=== PATIENT | male | born 1955 | race Caucasian/White ===

== ENCOUNTER 2018-04-17 04:52 | Emergency (ER) | payer OTHER ==
[2018-04-17] MEDS ORDERED: FENTANYL CITR 100 MCG/2 ML ONE (05:45)
[2018-04-17] MEDS ORDERED: PANTOPRAZOLE 40 MG INJ ONE (05:45)
[2018-04-17] MEDS ORDERED: ONDANSETRON 4 MG/2 ML VIAL ONE ×2 (05:45→07:00)
[2018-04-17 06:14] LABS: Absolute Lymphocytes (CBC) 1.2 K/uL (0.7-4.9); Absolute Monocytes 0.9 K/uL (0.1-1.3); Absolute Neutrophil 9.7 K/uL (1.8-8.0); Basophils % 0.3 % (0-1.3); Eosinophils % 1.5 % (0-4.4); Hematocrit 46.2 % (39.6-49.0); Lymphocytes % 9.9 % (15.3-44.8); MPV 7.8 fL (7.6-11.3); Monocytes % 7.1 % (3.3-12.3)
[2018-04-17 06:15] LABS: Protime INR 1.43
--- NOTE | 2018-04-17 06:34 | EDPHYS ---
Physician Documentation [facility] Name: Alicia Jalloh Age: 62 yrs Sex: Male : 1955 Arrival Date: 04/17/2018 Time: 04:56 Bed 7 Private MD: ED Physician Jay Headley HPI: 04/17 05:26 This 62 yrs old Male presents to ER via EMS with complaints of upper cyndy abdominal pain. 05:26 The patient presents with abdominal pain. Onset: The symptoms/episode began/occurred 1 cyndy day(s) ago. The symptoms do not radiate. Associated signs and symptoms: none. The symptoms are described as constant, crampy, steady. Modifying factors: The symptoms are alleviated by nothing, the symptoms are aggravated by nothing. Severity of pain: At its worst the pain was moderate in the emergency department the pain is unchanged. The patient has experienced similar episodes in the past, a few times. Historical: - Allergies: 05:14 No Known Allergies; aa1 - Home Meds: 05:14 Xarelto oral oral [Active]; levothyroxine oral [Active]; Coreg Oral [Active]; glipizide aa1 Oral [Active]; Plavix Oral [Active]; pravastatin oral oral [Active]; losartan oral oral [Active]; - PMHx: 05:14 Myocardial infarction; Diabetes - NIDDM; High Cholesterol; Hypertension; Hypothyroidism;aa1 - PSHx: 05:14 Heart stents; aa1 - Immunization history:: Adult Immunizations up to date. - Social history:: Smoking status: Patient/guardian denies using tobacco, but has a distant history of tobacco abuse. - Ebola Screening: : Patient negative for fever greater than or equal to 101.5 degrees Fahrenheit, and additional compatible Ebola Virus Disease symptoms. - Family history:: not pertinent. ROS: 05:26 Constitutional: Negative for fever, chills, and weight loss, Eyes: Negative for injury, cyndy pain, redness, and discharge, ENT: Negative for injury, pain, and discharge, Neck: Negative for injury, pain, and swelling, Cardiovascular: Negative for chest pain, palpitations, and edema, Respiratory: Negative for shortness of breath, cough, wheezing, and pleuritic chest pain, Back: Negative for injury and pain, : Negative for injury, bleeding, discharge, and swelling, MS/Extremity: Negative for injury and deformity, Skin: Negative for injury, rash, and discoloration, Neuro: Negative for headache, weakness, numbness, tingling, and seizure, Psych: Negative for depression, anxiety, suicide ideation, homicidal ideation, and hallucinations, Allergy/Immunology: Negative for hives, rash, and allergies, Endocrine: Negative for neck swelling, polydipsia, polyuria, polyphagia, and marked weight changes, Hematologic/Lymphatic: Negative for swollen nodes, abnormal bleeding, and unusual bruising. 05:26 Abdomen/GI: Positive for abdominal pain, of the epigastric area. Exam: 05:26 Constitutional: This is a well developed, well nourished patient who is awake, alert, cyndy and in no acute distress. Head/Face: Normocephalic, atraumatic. Eyes: Pupils equal round and reactive to light, extra-ocular motions intact. Lids and lashes normal. Conjunctiva and sclera are non-icteric and not injected. Cornea within normal limits. Periorbital areas with no swelling, redness, or edema. ENT: Nares patent. No nasal discharge, no septal abnormalities noted. Tympanic membranes are normal and external auditory canals are clear. Oropharynx with no redness, swelling, or masses, exudates, or evidence of obstruction, uvula midline. Mucous membranes moist. Neck: Trachea midline, no thyromegaly or masses palpated, and no cervical lymphadenopathy. Supple, full range of motion without nuchal rigidity, or vertebral point tenderness. No Meningismus. Chest/axilla: Normal chest wall appearance and motion. Nontender with no deformity. No lesions are appreciated. Cardiovascular: Regular rate and rhythm with a normal S1 and S2. No gallops, murmurs, or rubs. Normal PMI, no JVD. No pulse deficits. Respiratory: Lungs have equal breath sounds bilaterally, clear to auscultation and percussion. No rales, rhonchi or wheezes noted. No increased work of breathing, no retractions or nasal flaring. Back: No spinal tenderness. No costovertebral tenderness. Full range of motion. Male : Normal genitalia with no discharge or lesions. Skin: Warm, dry with normal turgor. Normal color with no rashes, no lesions, and no evidence of cellulitis. MS/ Extremity: Pulses equal, no cyanosis. Neurovascular intact. Full, normal range of motion. Neuro: Awake and alert, GCS 15, oriented to person, place, time, and situation. Cranial nerves II-XII grossly intact. Motor strength 5/5 in all extremities. Sensory grossly intact. Cerebellar exam normal. Normal gait. Psych: Awake, alert, with orientation to person, place and time. Behavior, mood, and affect are within normal limits. 05:26 Abdomen/GI: Inspection: distension, Bowel sounds: normal, Liver: no appreciated palpable abnormalities, Hernia: not appreciated. Vital Signs: 05:14 BP 142 / 96; Pulse 92; Resp 20 S; Temp 97.5(O); Pulse Ox 97% on R/A; Weight 145.15 kg aa1 (R); Height 6 ft. 1 in. (185.42 cm) (R); Pain 6/10; 06:04 BP 145 / 85; Pulse 88; Resp 19 S; Pulse Ox 96% on R/A; jd3 08:21 BP 157 / 93; Pulse 86; Resp 17; Pulse Ox 94% ; sv 09:32 BP 133 / 79; Pulse 94; Resp 16; Pulse Ox 95% ; sv 10:50 BP 134 / 80; Pulse 91; Resp 16; Pulse Ox 95% ; sv 05:14 Body Mass Index 42.22 (145.15 kg, 185.42 cm) aa1 MDM: 05:12 Patient medically screened. [facility] 05:26 Data reviewed: vital signs, nurses notes, lab test result(s), EKG, radiologic studies. [facility] 09:30 Physician consultation: DR Cagle, sonar subsystem equipment operator \T\[facility] in [facility], will consult on patient and requests transfer to care of hospitalist. 09:45 ED course: VSS. No beds available at [facility]. 10:04 Physician consultation: Dr Flores, sonar subsystem equipment operator \T\[facility], will consult on patient and requests transfer to care of hospitalist. 10:05 Physician consultation: Will transfer to care of DR Zimmerman, hospitalist \[facility] will accept patient. 04/17 05:01 Order name: Basic Metabolic Panel; Complete Time: 07:36 fc 04/17 07:36 Interpretation: Normal except: GLUC 206; CRE 1.33; GFR 54. cp 04/17 05:01 Order name: CBC with Diff; Complete Time: 06:28 04/17 07:38 Interpretation: Normal except: WBC 12.0; OLIVER% 81.2; LYM% 9.9; NEUT A 9.7. cp 04/17 05:01 Order name: LFT's; Complete Time: 07:36 04/17 07:37 Interpretation: Normal except: AST 225; ALT 182; ALK 151; BILIT 3.4; BILID 2.1; ALB cp 3.2; GLOB 4.1; A/G 0.8. 04/17 05:01 Order name: Magnesium; Complete Time: 07:36 04/17 05:01 Order name: NT PRO-BNP; Complete Time: 07:36 04/17 05:01 Order name: PT-INR; Complete Time: 06:28 04/17 07:38 Interpretation: Abnormal: PT 16.9. cp 04/17 05:01 Order name: Troponin (emerg Dept Use Only); Complete Time: 07:36 04/17 05:01 Order name: XRAY Chest (1 view); Complete Time: 09:29 04/17 05:25 Order name: US Abdomen Limited; Complete Time: 08:38 [facility] 04/17 05:25 Order name: CT Abd/Pelvis - W/Contrast; Complete Time: 08:38 [facility] 04/17 06:08 Order name: Lipase; Complete Time: 07:36 EDMS 04/17 07:37 Interpretation: Abnormal: LIP > [id number]. cp 04/17 05:01 Order name: EKG; Complete Time: 05:02 04/17 05:01 Order name: Cardiac monitoring; Complete Time: 05:21 04/17 05:01 Order name: EKG - Nurse/Tech; Complete Time: 05:02 04/17 05:01 Order name: IV Saline Lock; Complete Time: 05:22 04/17 05:01 Order name: Labs collected and sent; Complete Time: 05:53 04/17 05:01 Order name: O2 Per Protocol; Complete Time: 05:21 04/17 05:01 Order name: O2 Sat Monitoring; Complete Time: 05:21 fc EC:46 Rate is 84 beats/min. Rhythm is irregularly irregular. QRS interval is prolonged at 158 cp msec. QT interval is normal. T waves are Inverted in leads III, aVF. Interpreted by me. Reviewed by me. Administered Medications: 05:52 Drug: ProTONIX 40 mg Route: IVP; Site: left antecubital; aa1 05:52 Drug: fentaNYL (PF) 50 mcg Route: IVP; Site: left antecubital; aa1 05:52 Drug: Zofran 4 mg Route: IVP; Site: left antecubital; aa1 06:52 Drug: Zofran 4 mg Route: IVP; Site: left antecubital; ea 07:05 Follow up: Response: No adverse reaction; Marked relief of symptoms; Nausea is decreasedsv 08:12 Drug: Zosyn 3.375 grams Route: IVPB; Infused Over: 60 mins; Site: left forearm; sv 09:29 Follow up: Response: No adverse reaction; IV Status: Completed infusion; IV Intake: sv 100ml 08:29 Drug: NS 0.9% 1000 ml Route: IV; Rate: 150 ml/hr; Site: left forearm; sv 10:56 Follow up: IV Status: Infusion continued upon transfer Disposition: 13:30 Co-signature as Attending Physician, Jay Headley MD I agree with the assessment and cyndy plan of care. Disposition: 04/17/18 08:41 Transfer ordered to [facility]. Diagnosis are Acute pancreatitis, Cholecystitis, Chronic atrial fibrillation. - Reason for transfer: Higher level of care. - Accepting physician is DR Martin. - Condition is Stable. - Problem is new. - Symptoms have improved. Signatures: Dispatcher [employer] EDLA Christy Feldman RN TOMMIE Regina Cohen RN RN aa1 Jay Headley MD MD cha Chretien, Felicia RN Carina Mueller RN RN ss Page, Corey, PA PA cp Antunez, Elena, RN RN ea Corrections: (The following items were deleted from the chart) 06:06 05:24 LIPASE+C.LAB.BRZ ordered. EDLA EDLA 06:35 06:32 Hospitalization Ordered by Mook Mann MD for Inpatient Admission. Preliminary cyndy diagnosis is Abdominal tenderness; Obesity, unspecified; Type 2 diabetes mellitus. Bed requested for Telemetry/MedSurg (Inpatient). Status is Inpatient Admission. Condition is Fair. Problem is new. Symptoms have improved. UTI on Admission? No. cyndy 08:40 06:35 04/17/2018 06:32 Hospitalization Ordered by Mook Mann MD for Inpatient cp Admission. Preliminary diagnosis is Abdominal tenderness; Obesity, unspecified; Type 2 diabetes mellitus; Other chest pain. Bed requested for Telemetry/MedSurg (Inpatient). Status is Inpatient Admission. Condition is Fair. Problem is new. Symptoms have improved. UTI on Admission? No. cyndy 10:16 08:41 04/17/2018 08:41 Transfer ordered to [facility]. Diagnosis is cp Acute pancreatitis; Cholecystitis. Reason for transfer: Higher level of care. Accepting physician is Doctor. Condition is Stable. Problem is new. Symptoms have improved. cp 10:57 10:16 04/17/2018 08:41 Transfer ordered to [facility]. ss Diagnosis is Acute pancreatitis; Cholecystitis; Chronic atrial fibrillation. Reason for transfer: Higher level of care. Accepting physician is DR Martin. Condition is Stable. Problem is new. Symptoms have improved. cp
--- NOTE | 2018-04-17 06:34 | ER ---
Nurse's Notes [facility] Name: Alicia Jalloh Age: 62 yrs Sex: Male : 1955 Arrival Date: 04/17/2018 Time: 04:56 Bed 7 Private MD: Diagnosis: Acute pancreatitis;Cholecystitis;Chronic atrial fibrillation Presentation: 04/17 05:00 Presenting complaint: EMS states: "he is having chest pain/pressure. he also is aa1 complain of epigastric pain. he vomited once when we picked him up, he has a extensive cardiac history, heart rate was initially high so we started a line and gave him fluids.". Transition of care: patient was not received from another setting of care. Onset of symptoms was April 17, 2018. Risk Assessment: Do you want to hurt yourself or someone else? Patient reports no desire to harm self or others. Initial Sepsis Screen: Does the patient meet any 2 criteria? No. Patient's initial sepsis screen is negative. Does the patient have a suspected source of infection? No. Patient's initial sepsis screen is negative. Care prior to arrival: Medication(s) given: Normal saline infusion, 250 ml IV initiated. 18 GA, in the left antecubital area, Glucose check: 174. 05:00 Method Of Arrival: EMS: [facility] aa1 05:00 Acuity: MARIE 2 aa1 Historical: - Allergies: 05:14 No Known Allergies; aa1 - Home Meds: 05:14 Xarelto oral oral [Active]; levothyroxine oral [Active]; Coreg Oral [Active]; glipizide aa1 Oral [Active]; Plavix Oral [Active]; pravastatin oral oral [Active]; losartan oral oral [Active]; - PMHx: 05:14 Myocardial infarction; Diabetes - NIDDM; High Cholesterol; Hypertension; Hypothyroidism;aa1 - PSHx: 05:14 Heart stents; aa1 - Immunization history:: Adult Immunizations up to date. - Social history:: Smoking status: Patient/guardian denies using tobacco, but has a distant history of tobacco abuse. - Ebola Screening: : Patient negative for fever greater than or equal to 101.5 degrees Fahrenheit, and additional compatible Ebola Virus Disease symptoms. - Family history:: not pertinent. Screenin:20 Abuse screen: Denies threats or abuse. Nutritional screening: No deficits noted. aa1 Tuberculosis screening: No symptoms or risk factors identified. Fall Risk IV access (20 points). Ambulatory Aid- None/Bed Rest/Nurse Assist (0 pts). Gait- Weak (10 pts.). Mental Status- Oriented to own ability (0 pts). Total Haywood Fall Scale indicates No Risk (0-24 pts). Assessment: 05:16 General: Appears uncomfortable, Behavior is calm, cooperative, appropriate for age. aa1 Pain: Complains of pain in chest, left upper quadrant and left lower quadrant Quality of pain is described as sharp, tender. Neuro: Level of Consciousness is awake, alert, obeys commands, Oriented to person, place, time, situation. Cardiovascular: Heart tones S1 S2 present Capillary refill < 3 seconds Patient's skin is warm and dry. Respiratory: Reports shortness of breath Airway is patent Respiratory effort is even, unlabored, Respiratory pattern is regular, symmetrical, Breath sounds are clear bilaterally. GI: Abdomen is round non-distended, Bowel sounds present X 4 quads. Abd is soft Abdomen is tender to palpation in left upper quadrant and left lower quadrant. : No signs and/or symptoms were reported regarding the genitourinary system. EENT: No signs and/or symptoms were reported regarding the EENT system. Derm: Skin is intact, Skin is diaphoretic, Skin is normal, Skin temperature is warm. Musculoskeletal: Circulation, motion, and sensation intact. Range of motion: intact in all extremities. 05:58 Reassessment: Patient appears in no apparent distress at this time. No changes from jd3 previously documented assessment. Patient and/or family updated on plan of care and expected duration. Pain level reassessed. Patient is alert, oriented x 3, equal unlabored respirations, skin warm/dry/pink. CT notified of finishing PO contrast. 06:04 Reassessment: Patient appears in no apparent distress at this time. No changes from jd3 previously documented assessment. Patient and/or family updated on plan of care and expected duration. Pain level reassessed. Patient is alert, oriented x 3, equal unlabored respirations, skin warm/dry/pink. 08:13 Reassessment: Patient appears in no apparent distress at this time. Patient and/or sv family updated on plan of care and expected duration. Pain level reassessed. Patient is alert, oriented x 3, equal unlabored respirations, skin warm/dry/pink. Pt informed that we are waiting on the CT results which will determine if he will be an admission here or be transferred to another facility. 09:20 Reassessment: Patient appears in no apparent distress at this time. Patient and/or sv family updated on plan of care and expected duration. Pain level reassessed. Patient is alert, oriented x 3, equal unlabored respirations, skin warm/dry/pink. Pt had a large BM. Gown changed, bedside commode emptied. Vital Signs: 05:14 BP 142 / 96; Pulse 92; Resp 20 S; Temp 97.5(O); Pulse Ox 97% on R/A; Weight 145.15 kg aa1 (R); Height 6 ft. 1 in. (185.42 cm) (R); Pain 6/10; 06:04 BP 145 / 85; Pulse 88; Resp 19 S; Pulse Ox 96% on R/A; jd3 08:21 BP 157 / 93; Pulse 86; Resp 17; Pulse Ox 94% ; sv 09:32 BP 133 / 79; Pulse 94; Resp 16; Pulse Ox 95% ; sv 10:50 BP 134 / 80; Pulse 91; Resp 16; Pulse Ox 95% ; sv 05:14 Body Mass Index 42.22 (145.15 kg, 185.42 cm) aa1 ED Course: 04:56 Patient arrived in ED. cyndy 05:00 Regina Cohen RN is Primary Nurse. aa1 05:05 Triage completed. aa1 05:12 Jay Headley MD is Attending Physician. cyndy 05:16 Arm band placed on. EKG completed in triage. Results shown to MD. aa1 05:16 Maintain EMS IV. Dressing intact. Good blood return noted. Site clean \\T\\ dry. Gauge \\T\\ aa 1 site: 18 G left AC. 05:20 Patient has correct armband on for positive identification. Placed in gown. Bed in low aa1 position. Call light in reach. Side rails up X2. Adult w/ patient. 05:21 XRAY Chest (1 view) In Process Unspecified. EDMS 05:54 Primary Nurse role handed off by Regina Cohen RN jd3 05:54 Luisito Mena RN is Primary Nurse. jd3 06:31 Mook Mann MD is Hospitalizing Provider. cyndy 07:11 Ultrasound completed. Patient tolerated well. aa4 07:12 US Abdomen Limited In Process Unspecified. EDMS 07:49 Note: 24 g diffusics started in lt forearm. Patient moved to CT via stretcher. sj 07:59 CT completed. Patient tolerated procedure well. Patient moved to CT via stretcher. jg6 Patient moved back from CT. 08:02 CT Abd/Pelvis - W/Contrast In Process Unspecified. EDMS 08:14 Primary Nurse role handed off by Luisito Mena, TOMMIE sv 08:14 Christy Feldman, TOMMIE is Primary Nurse. sv 09:32 transfer approval from receiving facility. sv 09:55 Jay Guo PA is PHCP. cp 10:36 No provider procedures requiring assistance completed. Patient transferred, IV remains sv in place. intact. Administered Medications: 05:52 Drug: ProTONIX 40 mg Route: IVP; Site: left antecubital; aa1 05:52 Drug: fentaNYL (PF) 50 mcg Route: IVP; Site: left antecubital; aa1 05:52 Drug: Zofran 4 mg Route: IVP; Site: left antecubital; aa1 06:52 Drug: Zofran 4 mg Route: IVP; Site: left antecubital; ea 07:05 Follow up: Response: No adverse reaction; Marked relief of symptoms; Nausea is decreasedsv 08:12 Drug: Zosyn 3.375 grams Route: IVPB; Infused Over: 60 mins; Site: left forearm; sv 09:29 Follow up: Response: No adverse reaction; IV Status: Completed infusion; IV Intake: sv 100ml 08:29 Drug: NS 0.9% 1000 ml Route: IV; Rate: 150 ml/hr; Site: left forearm; sv 10:56 Follow up: IV Status: Infusion continued upon transfer ss Intake: 09:29 IV: 100ml; Total: 100ml. sv Outcome: 06:32 Decision to Hospitalize by Provider. cyndy 08:41 ER care complete, transfer ordered by . cp 10:35 Transferred by ground EMS to [facility], Transfer form completed. X-rays sent sv w/ patient. Note: Report given to Michelle Azar RN 10:35 Condition: stable 10:35 Instructed on the need for transfer. 10:57 Patient left the ED. ss Signatures: Dispatcher [employer] Christy Arriaza, RN RN Regina Remy RN RN aa1 Jay Headley MD MD cha Jones, Susan sj Frazier, Amanda aa4 Carina Ang RN RN ss Jay Guo PA PA cp Antunez, Elena RN RN Luisito Martinez RN RN Ainsley Nelson6 Corrections: (The following items were deleted from the chart) 06:05 05:58 Reassessment: CT notified of finishing PO contrast. nick jd3
[2018-04-17 07:12] LABS: ALT/SGPT 182 U/L (12-78); AST/SGOT 225 U/L (15-37); Albumin 3.2 g/dL (3.4-5.0); Alkaline Phosphatase 151 U/L (45-117); BUN Blood Urea Nitrogen 18 mg/dL (7-18); Bicarbonate 25 mmol/L (21-32); Bilirubin Direct 2.1 mg/dL (0-0.2); Bilirubin Total 3.4 mg/dL (0.2-1.0); Glucose Level 206 mg/dL (74-106); Magnesium 2.1 mg/dL (1.8-2.4); NT PRO-BNP 164 pg/mL (<125); Potassium 3.7 mmol/L (3.5-5.1); Protein, Total 7.3 g/dL (6.4-8.2); Sodium Level 137 mmol/L (136-145); Troponin (Emerg Dept Use Only) < 0.02 ng/mL (0.0-0.045)
[2018-04-17 07:13] LABS: Lipase > 30000 U/L (73-393)
[2018-04-17] MEDS ORDERED: PIPER/TAZO/NS 3.375gm 3.375 GM/100 ML BAG ONE (07:31)
--- NOTE | 2018-04-17 08:21 | RAD REPORT ---
EXAM DESCRIPTION: CT - Abdomen Pelvis W Contrast - 04/17/2018 7:59 am CLINICAL HISTORY: Abdominal pain. S/epigastric pain with vomiting COMPARISON: None. TECHNIQUE: Computed axial tomography of the abdomen and pelvis was obtained. 100 cc Isovue-300 is ad ministered intravenously. Oral contrast was given. All CT scans are performed using dose optimization technique as appropriate and may include automated exposure control or mA/KV adjustment according to patient size. FINDINGS: Fatty liver Pancreas is inhomogeneous. Moderate stranding is present within the peripancreatic fat with ill-defin ed fluid. Fluid extends into the left anterior pararenal space. A pseudocyst is not noted. Vague tiny densities are suspected within the posterior gallbladder. Gallbladder wall is upper limits normal thickness There is no evidence of diverticulitis Spleen left adrenal and kidneys appear unremarkable. 18 millimeter right adrenal mass. Small hiatal hernia. Calcified left pleural plaque IMPRESSION: Moderate pancreatitis Possible cholelithiasis 18 millimeter right adrenal mass has a nonspecific appearance. Nonemergent MRI recommended
--- NOTE | 2018-04-17 08:22 | RAD REPORT ---
EXAM DESCRIPTION: US - Abdomen Exam Limited - 04/17/2018 7:16 am CLINICAL HISTORY: Abdominal pain. COMPARISON: April 17, 2018 cat scan FINDINGS: The exam is somewhat limited secondary to body habitus. A tiny echogenic structures are present within the gallbladder. Posterior shadowing is not seen. Gall bladder wall is upper limits normal thickness The biliary tree is normal caliber. IMPRESSION: Tiny echogenic structures within the gallbladder may represent sludge or gallstones whic h did not shadow secondary to their small size and technical factors
--- NOTE | 2018-04-17 08:28 | P.CNS ---
Date of Consult: 04/17/18 Reason for Consult: abdominal pain Requesting Physician: Jay Headley Chief Complaint: abdominal pain; nausea and vomiting History of Present Illness: Patient is a 62-year-old gentleman who came into the hospital with complaints of abdominal pain. Patient has a history of coronary artery disease. Patient had a Coronary artery bypass performed about 20 years ago. Since that time he has required 5 additional stents. He was having chest pain as well as abdominal pain in the lower abdomen. He decided to come into the hospital for further evaluation. In the emergency room on further examination he had most of his pain in the epigastric region. Even with mild palpation he was having tenderness. he has labs and diagnostic testing still pending. His symptoms look to be acute pancreatitis. Await for additional testing at this time. Patient denies drinking. He does not have a history of cholelithiasis. He denies a history of hyperlipidemia. Allergies No Known Allergies Allergy (Verified 04/17/18 08:17) - Past Medical/Surgical History -: Coronary artery disease -: hypertension -: diabetes -: dyslipidemia -: Coronary artery bypass grafting -: coronary artery stent x5 - Family History Father Family History: Reviewed- Non-Contributory - Social History Smoking Status: Unknown if ever smoked Alcohol use: No CD- Drugs: No Review of Systems 10-point ROS is otherwise unremarkable Physical Examination reviewed General: Alert, In no apparent distress, Oriented x3 HEENT: Atraumatic, PERRLA, Mucous membr. moist/pink, EOMI, Sclerae nonicteric Neck: Supple, 2+ carotid pulse no bruit, No LAD, Without JVD or thyroid abnormality Respiratory: Clear to auscultation bilaterally, Normal air movement Cardiovascular: Regular rate/rhythm, Normal S1 S2, Systolic murmur Gastrointestinal: Hypoactive, Distended, Tenderness, Rebound, Guarding Musculoskeletal: No clubbing, No tenderness, Swelling Integumentary: No rashes Neurological: Normal gait, Normal speech, Normal tone, Sensation intact, Cranial nerves 3-12 intact, Normal affect, Abnormal strength Lymphatics: No axilla or inguinal lymphadenopathy Laboratory Data (last 24 hrs) 04/17/18 05:40: PT 16.9 H, INR 1.43 04/17/18 05:40: WBC 12.0 H, Hgb 15.7, Hct 46.2, Plt Count 271 04/17/18 05:40: Sodium 137, Potassium 3.7, BUN 18, Creatinine 1.33 H, Glucose 206 H, Magnesium 2.1, Total Bilirubin 3.4 H, AST 225 H, ALT 182 H, Alkaline Phosphatase 151 H, Lipase > 05494 H 04/17/18 05:24: Lipase Cancelled - Problems (1) Abdominal pain Current Visit: Yes Status: Acute (2) Intractable nausea and vomiting Current Visit: Yes Status: Acute (3) Pancreatitis, acute Current Visit: Yes Status: Acute (4) CAD (coronary artery disease) Current Visit: Yes Status: Acute (5) CAD (coronary artery disease) of artery bypass graft Current Visit: Yes Status: Acute Conclusions/ Impression: Plan: 1. IV fluids and IV antibiotics 2. GI consultation- may need transfer if any indication for ERCP 3. Pain control 4. lipid profile 5. US/CT pending; labs pending 7. GI and DVT prophylaxis
[2018-04-17] MEDS ORDERED: NA CHLORIDE 0.9% 1,000 ML ONE (08:33)
--- NOTE | 2018-04-17 08:39 | RAD REPORT ---
EXAM DESCRIPTION: [place] Single View04/17/2018 5:23 am CLINICAL HISTORY: Chest pain COMPARISON: 2011 FINDINGS: The lungs appear clear of acute infiltrate. The heart is mildly enlarged. Postsurgical ch anges involve the chest. Left pleural calcification is noted IMPRESSION: No acute abnormalities displayed
--- NOTE | 2018-04-17 10:22 | EKG ---
Test Date: 2018-04-17 Test Time: 04:55:20 Poly Operator: MELY MEASUREMENT RESULTS: Intervals: Rate: 84 [place]: QRSD: 158 QT: 412 QTc: 486 [place]: P: [place]: QRS: -17 T: -22 INTERPRETIVE STATEMENTS: Atrial fibrillation Right bundle branch block Inferior infarct, age undetermined Abnormal ECG No previous ECG available for comparison Electronically Signed On 04-17-18 10:21:25 [employer]AV[employer] EQUIPMENT SUPERVISOR by Demarco Mcconnell
== END 2018-04-17 10:57 | disposition short-term general hospital (02) ==
LOC: ER 04:52
DX: K85.90 Acute pancreatitis without necrosis or infection, unspecified (principal); K81.9 Cholecystitis, unspecified; I48.2 Chronic atrial fibrillation; I45.10 Unspecified right bundle-branch block; R94.31 Abnormal electrocardiogram [ECG] [EKG]; E11.9 Type 2 diabetes mellitus without complications; E03.9 Hypothyroidism, unspecified; E78.5 Hyperlipidemia, unspecified; I10 Essential (primary) hypertension; I25.2 Old myocardial infarction; I25.810 Atherosclerosis of coronary artery bypass graft(s) without angina pectoris; Z79.01 Long term (current) use of anticoagulants; Z79.84 Long term (current) use of oral hypoglycemic drugs; Z79.02 Long term (current) use of antithrombotics/antiplatelets; Z79.899 Other long term (current) drug therapy; Z95.5 Presence of coronary angioplasty implant and graft; Z95.1 Presence of aortocoronary bypass graft
CPT/HCPCS: 36415; 71045; 74177; 76705; 80048; 80076; 83690; 83735; 83880; 84484; 85025; 85610; 93005; 96361 ×2; 96365 ×2; 96375 ×2; 99285 ×2; C9113; J2405 ×2; J2543; J3010; J7030; Q9967

== ENCOUNTER 2018-10-28 06:26 | Day surgery (SDC) | payer OTHER ==
[2018-10-25 12:31] LABS: Absolute Lymphocytes (CBC) 1.4 K/uL (0.7-4.9); Basophils % 0.4 % (0-1.3); Hematocrit 44.2 % (39.6-49.0); Lymphocytes % 17.1 % (15.3-44.8); MPV 7.6 fL (7.6-11.3); RBC Red Blood Cell Count 4.97 M/uL (4.33-5.43)
[2018-10-25 12:35] LABS: Protime INR 1.19
[2018-10-25 12:39] LABS: Potassium 4.3 mmol/L (3.5-5.1)
--- NOTE | 2018-10-25 13:29 | RAD REPORT ---
EXAM DESCRIPTION: Laney Rooney And Joe (2 Views)10/25/2018 1:22 pm CLINICAL HISTORY: Hypertension. Preop for cardiac catheterization COMPARISON: May 2018 FINDINGS: The lungs appear clear of acute infiltrate. Areas of scarring are present within the left lung. Left pleural thickening is noted. Postsurgical changes involve the chest. The heart is borderline enlarged IMPRESSION: No acute abnormalities displayed
--- OUTSIDE RECORDS SUMMARY | 2018-10-28 06:28 | XMS REPORT | Clinical Summary ---
:1955 Author Organization [facility] Address [address] [place] [address] Care Team Providers Name Role Phone Unavailable Primary Care Provider Unavailable Allergies Not on File Medications Not on file Active Problems Not on file Social History Tobacco Use Types Packs/Day Years Used Date Never Assessed Sex Assigned at Date Recorded Not on file Job Start Date Occupation Industry Not on file Not on file Not on file Travel History Travel Start Travel End No recent travel history available. Last Filed Vital Signs Not on file Plan of Treatment Not on file Results Not on fileafter 10/27/2017
--- OUTSIDE RECORDS SUMMARY | 2018-10-28 06:30 | XMS REPORT | Continuity of Care Document ---
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/[address] [facility] Medications Medication Details Route Status Patient Ordering Order Source Instructions Provider Date omeprazole 40 mg 40 mg=1 cap, PO, Active [facility] oral delayed Daily, # 30 cap, 2019 Medical release capsule 0 Refill(s) Center Acetaminophen 650 mg=2 tab, PO, Active [facility] 325 MG Oral Q6H, # 50 tab, 0 2019 Medical Tablet Refill(s) Center carvedilol 25 mg 25 mg, PO, Q12H, Active [facility] oral tablet # 30 tab, 0 2019 Medical Refill(s) Center atorvastatin 40 40 mg=1 tab, PO, Active [facility] mg oral tablet Bedtime, # 30 2019 Medical tab, 0 Refill(s) Center Aspirin 81 MG 81 mg=1 tab, PO, Active [facility] Enteric Coated Daily, # 30 tab, 2019 Medical Tablet 0 Refill(s) Center Magnesium Oxide 800 mg, 2 tab, Inactive [facility] Route: PO, Drug 2018 Medical form: TAB, Daily, Center Dosing Weight 155.455, kg, Priority: NOW, Start date: 04/24/18 15:51:00 HEAD OF MAINTENANCE, Duration: 1 doses or times, Stop date: 04/24/18 15:51:00 CSTNotes: (Same as: Mag-Ox 400) Magnesium oxide [id number] elemental magnesium Dose=____mg magnesium oxide (___mg elemental magnesium) K-Dur 20 40 mEq, 2 tab, No Longer [facility] Route: PO, Drug Active 2018 Medical form: ERTAB, Center Daily, Dosing Weight 155.455, kg, Priority: NOW, Start date: 04/24/18 15:51:00 HEAD OF MAINTENANCE, Duration: 2 doses or times, Stop date: 04/25/18 9:00:00 CSTNotes: (Same as: K-Dur 20) "Do Not Crush" Give with food and full glass of water For patients unable to swallow tablet, dissolve in one half glass of water. Allow about 2 minutes for the tablets to disintegrate. Stir before giving to prepare slurry and administer. Please exclude Patients with feeding tube less than 14 Citizen Of [place] ([place]obhoff, J-tube etc) and pediatric and patients. Wellbutrin SR 100 mg, 1 tab, No Longer [place] Route: PO, Drug Active 2019 Medical form: ERTAB, Center Daily, Dosing Weight 155.455, kg, Start date: 04/24/18 12:30:00 HEAD OF MAINTENANCE, Duration: 30 day, Stop date: 05/24/18 9:00:00 CSTNotes: Do not crush or chew. (Same As: Wellbutrin SR) Aspirin 81 mg, 1 tab, No Longer [place] Route: PO, Drug Active 2019 Medical form: ECTAB, Center Daily, Dosing Weight 155.455, kg, Start date: 04/24/18 9:00:00 HEAD OF MAINTENANCE, Duration: 30 day, Stop date: 05/23/18 9:00:00 CSTNotes: Do not crush or chew. (Same As: Ecotrin) Enoxaparin 40 mg, 0.4 mL, No Longer [place] Route: SUB-Q, Active 2019 Medical Drug form: INJ, Center Q12H, Dosing Weight 155.455, kg, Start date: 04/23/18 21:00:00 HEAD OF MAINTENANCE, Duration: 30 day, Stop date: 05/23/18 4:00:00 CSTNotes: (Same as: Lovenox) Losartan 25 mg, 1 tab, No Longer [place] Route: PO, Drug Active 2019 Medical form: TAB, Daily, Center Dosing Weight 155.455, kg, Start date: 04/23/18 9:00:00 HEAD OF MAINTENANCE, Duration: 30 day, Stop date: 05/22/18 9:00:00 CSTNotes: (Same as: Cozaar) potassium 20 mEq, 1 tab, Inactive [place] chloride 20 mEq Route: PO, Drug 2019 Medical oral tablet, form: ERTAB, Center extended release ONCE, Dosing Weight 155.455, kg, Start date: 04/23/18 8:41:00 HEAD OF MAINTENANCE, Stop date: 04/23/18 8:41:00 CSTNotes: (Same as: K-Dur 20) "Do Not Crush" Give with food and full glass of water For patients unable to swallow tablet, dissolve in one half glass of water. Allow about 2 minutes for the tablets to disintegrate. Stir before giving to prepare slurry and administer. Please exclude Patients with feeding tube less than 14 Citizen [place] ([place], J-tube etc) and pediatric and patients. Potassium 20 mEq, 100 mL, Inactive [place] Chloride Route: IV, Drug 2019 Medical form: INJ, ONCE, Center Dosing Weight 155.455, kg, Start date: 04/23/18 8:41:00 HEAD OF MAINTENANCE, Stop date: 04/23/18 8:41:00 CSTNotes: (Same as: KCL) Infuse no faster than 10 mEq/hr if given peripherally. Iohexol 100 mL, Route: Inactive [place] IVP, Drug Form: 2019 Medical SOLN, Dosing Center Weight 155.455, kg, ONCALL, STAT, Start date: 04/22/18 21:38:00 HEAD OF MAINTENANCE, Duration: 1 doses or times, Dose=2.2ml/kg, Max [id number] -- "To be infused by Radiology Staff ONLY" Coreg 25 mg, 1 tab, No Longer [place] Route: PO, Drug Active 2019 Medical form: TAB, Q12H, Center Dosing Weight 155.455, kg, Start date: 04/22/18 21:00:00 HEAD OF MAINTENANCE, Duration: 30 day, Stop date: 05/22/18 9:00:00 CSTNotes: Give with food. (Same As: Coreg) potassium 15 mmol, 5 mL, Inactive [place] phosphate Route: IVPB, 2019 Medical ONCE, Dosing Center Weight 155.455, kg, Start date: 04/22/18 12:02:00 HEAD OF MAINTENANCE, Stop date: 04/22/18 12:02:00 CSTNotes: (Same as: K Phosphate.) Do not infuse phosphorous concurrently in the same line as TPN or IVF that contains calcium. For double lumen central lines, phosphorous may be infused in a separate lumen from TPN. 1 mMol phoshate has 1.47 mEq potassium Infuse over 4 hours potassium 20 mEq, 1 tab, Inactive [place] chloride 20 mEq Route: PO, Drug 2019 Medical oral tablet, form: ERTAB, BID, Center extended release Dosing Weight 155.455, kg, Start date: 04/22/18 9:00:00 HEAD OF MAINTENANCE, Duration: 30 day, Stop date: 05/21/18 17:00:00 CSTNotes: (Same as: K-Dur 20) "Do Not Crush" Give with food and full glass of water For patients unable to swallow tablet, dissolve in one half glass of water. Allow about 2 minutes for the tablets to disintegrate. Stir before giving to prepare slurry and administer. Please exclude Patients with feeding tube less than 14 Citizen [place] ([place], J-tube etc) and pediatric and patients. Potassium 20 mEq, 100 mL, Inactive [place] Chloride Route: IV, Drug 2019 Medical form: INJ, ONCE, Center Dosing Weight 155.455, kg, Start date: 04/22/18 7:19:00 HEAD OF MAINTENANCE, Stop date: 04/22/18 7:19:00 CSTNotes: (Same as: KCL) Infuse no faster than 10 mEq/hr if given peripherally. Enoxaparin 40 mg, 0.4 mL, No Longer [place] Route: SUB-Q, Active 2019 Medical Drug form: INJ, Center [id number], Dosing Weight 155.455, kg, Start date: 04/21/18 13:00:00 HEAD OF MAINTENANCE, Duration: 30 day, Stop date: 05/20/18 13:00:00 CSTNotes: (Same as: Lovenox) Insulin regular 5 unit, 0.05 mL, No Longer [place] Route: SUB-Q, Active 2019 Medical Drug form: SOLN, [place] TID-Before Meals, Dosing Weight 155.455, kg, PRN Blood Glucose Results, Start date: 04/21/18 12:31:00 HEAD OF MAINTENANCE, Duration: 30 day, Stop date: 05/21/18 12:30:00 CSTNotes: (Same as: Humulin R) Roll in palms of hands gently; Do not shake vigorously. "single patient use only" (Restricted to patients requiring a dose > 60 units) WASTE: F/P - Black; E - Municipal Trash Bin Stable for 28 days at room temperature Expires in days from Dat e Dextrose 50% 12.5 gm, 25 mL, No Longer [place] Syringe Route: IVP, Drug Active 2018 Medical Form: INJ, Dosing Center Weight 155.455, kg, PRN, PRN Blood Glucose Results, Start date: 04/21/18 12:31:00 HEAD OF MAINTENANCE, Duration: 30 day, Stop date: 05/21/18 12:30:00 HEAD OF MAINTENANCE Glucagon 1 mg, Route: IM, No Longer [place] Drug form: Active 2019 Medical PDR/INJ, PRN, Center Dosing Weight 155.455, kg, PRN Blood Glucose Results, Start date: 04/21/18 12:31:00 HEAD OF MAINTENANCE, Duration: 30 day, Stop date: 05/21/18 12:30:00 HEAD OF MAINTENANCE sodium phosphate 45 mmol, 15 mL, Inactive [place] + Sodium Route: IVPB, 2019 Medical Chloride 0.9% IV ONCE, Start date: Center 250 mL 04/21/18 10:30:00 HEAD OF MAINTENANCE, Stop date: 04/21/18 10:30:00 CSTNotes: Do not infuse phosphorous concurrently in the same line as TPN or IVF that contains calcium. For double lumen central lines, phosphorous may be infused in a separate lumen from TPN. Protonix 40 mg, Route: IV, No Longer [place] Drug form: INJ, Active 2018 Medical Q12H, Dosing Center Weight 155.455, kg, Start date: 04/21/18 9:00:00 HEAD OF MAINTENANCE, Duration: 30 day, Stop date: 05/20/18 21:00:00 CSTNotes: For IV push reconstitute with 10 ml 0.9% sodium chloride and push over 2 minutes. (Same as: Protonix) Bumex 1 mg, 4 mL, Inactive [facility] Route: IVP, Drug 2019 Medical form: INJ, Q12H, Center Dosing Weight 155.455, kg, Start date: 04/21/18 8:03:00 HEAD OF MAINTENANCE, Duration: 5 day, Stop date: 04/25/18 21:00:00 CSTNotes: (Same As: Bumex) Flagyl 500 mg, 1 tab, Inactive [place] Route: PO, Drug 2019 Medical form: TAB, Q8H, Center Dosing Weight 155.455, kg, Start date: 04/21/18 8:00:00 HEAD OF MAINTENANCE, Duration: 30 day, Stop date: 05/21/18 0:00:00 HEAD OF MAINTENANCE, ABX Indication: PneumoniaNotes: (Same as: Flagyl) Take with food/ avoid alcohol Potassium 40 mEq, 2 tab, No Longer [place] Chloride Route: PO, Drug Active 2019 Medical form: ERTAB, BID, Center Dosing Weight 155.455, kg, Start date: 04/21/18 7:49:00 HEAD OF MAINTENANCE, Duration: 30 day, Stop date: 05/20/18 17:00:00 CSTNotes: (Same as: K-Dur ) "Do Not Crush" Give with food and full glass of water For patients unable to swallow tablet, dissolve in one half glass of water. Allow about 2 minutes for the tablets to disintegrate. Stir before giving to prepare slurry and administer. Please exclude Patients with feeding tube less than 14 Citizen [place] ([place], J-tube etc) and pediatric and patients. potassium 30 mmol, Route: Inactive [place] phosphate IVPB, ONCE, 2019 Medical Dosing Weight Center 155.455, kg, Start date: 04/21/18 7:46:00 HEAD OF MAINTENANCE, Stop date: 04/21/18 7:46:00 HEAD OF MAINTENANCE Sodium Chloride 250 mL, Rate: Inactive [place] 0.9% IV 250 mL + 62.5 ml/hr, 2019 Medical potassium Infuse over: 4.1 Center phosphate 15 hr, Route: IV, mmol Dosing Weight 155.455 kg, Total Volume: 255, Start date: 04/21/18 6:13:00 HEAD OF MAINTENANCE, Stop date: 04/21/18 6:15:00 HEAD OF MAINTENANCE, 2.86, m2 vancomycin + 1.25 gm, Route: No Longer [place] Sodium Chloride IVPB, ABXQ8H, Active 2019 Medical 0.9% IV 250 mL Start date: [place] 04/20/18 23:00:00 HEAD OF MAINTENANCE, Stop date: 05/20/18 15:00:00 HEAD OF MAINTENANCE, ABX Indication: PneumoniaNotes: TIME CRITICAL MEDICATION (Same As: Vancocin) Infusion rate 2001 mg: infuse over 2.5 hours For adult patients only: Round to nearest 250 mg per Medical Staff approval MEDICATION WASTE Product Size: 1000 mg Product Wasted: ___ mg atorvastatin 40 mg, 1 tab, No Longer [place] Route: PO, Drug Active 2018 Medical form: TAB, Center Bedtime, Dosing Weight 155.455, kg, Start date: 04/20/18 21:00:00 HEAD OF MAINTENANCE, Duration: 30 day, Stop date: 05/19/18 21:00:00 CSTNotes: (Same as: Lipitor) potassium 21 mmol, 7 mL, Inactive [place] phosphate Route: IVPB, 2019 Medical ONCE, Dosing Center Weight 155.455, kg, Start date: 04/20/18 17:15:00 HEAD OF MAINTENANCE, Stop date: 04/20/18 17:15:00 CSTNotes: (Same as: K Phosphate.) Do not infuse phosphorous concurrently in the same line as TPN or IVF that contains calcium. For double lumen central lines, phosphorous may be infused in a separate lumen from TPN. 1 mMol phoshate has 1.47 mEq potassium Infuse over 4 hours Aldactone 25 mg, 1 tab, Inactive [place] Route: PO, Drug 2018 Medical form: TAB, ONCE, Center Start date: 04/20/18 14:00:00 HEAD OF MAINTENANCE, Stop date: 04/20/18 14:00:00 CSTNotes: (Same As: Aldactone) Tramadol 50 mg, 1 tab, No Longer [place] Route: PO, Drug Active 2018 Medical form: TAB, Q4H, Center Dosing Weight 155.455, kg, PRN Pain Score 1-5, Start date: 04/20/18 10:47:00 HEAD OF MAINTENANCE, Duration: 30 day, Stop date: 05/20/18 10:46:00 CSTNotes: Not to exceed 400mg/day. (Same As: Ultram) Protonix 80 mg + 100 mL, Rate: 10 No Longer [place] Sodium Chloride ml/hr, Infuse Active 2018 Medical 0.9% IV 100 mL over: 10 hr, Center Route: IV, Dosing Weight 155.455 kg, Total Volume: 100, Start date: 04/20/18 10:00:00 HEAD OF MAINTENANCE, Duration: 72 hr, Stop date: 04/23/18 9:59:00 HEAD OF MAINTENANCE, 2.86, m2 Protonix + 80 mg, Route: Inactive [facility] Sodium Chloride IVPB, ONCE, Start 2019 Medical 0.9% IV 50 mL date: 04/20/18 Center 9:30:00 HEAD OF MAINTENANCE, Stop date: 04/20/18 9:30:00 HEAD OF MAINTENANCE Spironolactone 50 mg, 1 tab, No Longer [facility] Route: PO, Drug Active 2019 Medical form: TAB, Daily, Center Dosing Weight 155.455, kg, Start date: 04/20/18 9:00:00 HEAD OF MAINTENANCE, Duration: 30 day, Stop date: 05/19/18 9:00:00 CSTNotes: (Same As: Aldactone) Losartan 50 mg, 1 tab, No Longer [facility] Route: PO, Drug Active 2018 Medical form: TAB, Daily, Center Dosing Weight 155.455, kg, Start date: 04/20/18 9:00:00 HEAD OF MAINTENANCE, Duration: 30 day, Stop date: 05/19/18 9:00:00 CSTNotes: (Same as: Ariannezatamra) pantoprazole 30 mL, Rate: 10 Inactive [facility] additive 24 mg ml/hr, Infuse 2019 Medical [8 mg/hr] + NS over: 3 hr, Center 30 mL Route: IV, Dosing Weight 155.455 kg, Total Volume: 30 mL, Start date: 04/20/18 8:57:00 HEAD OF MAINTENANCE, Duration: 72 hr, Stop date: 04/23/18 8:56:00 HEAD OF MAINTENANCE, 2.86, m2 pantoprazole 80 mg, Route: IV, Inactive [facility] Drug form: INJ, 2019 Medical ONCE, Dosing Center Weight 155.455, kg, Start date: 04/20/18 8:57:00 HEAD OF MAINTENANCE, Stop date: 04/20/18 8:57:00 HEAD OF MAINTENANCE, > 40 kg; loading dose; Pediatric Dosing potassium 21 mmol, 7 mL, Inactive [facility] phosphate Route: IV, ONCE, 2019 Medical Dosing Weight Center 155.455, kg, Priority: STAT, Start date: 04/20/18 7:15:00 HEAD OF MAINTENANCE, Stop date: 04/20/18 7:15:00 CSTNotes: (Same as: K Phosphate.) Do not infuse phosphorous concurrently in the same line as TPN or IVF that contains calcium. For double lumen central lines, phosphorous may be infused in a separate lumen from TPN. 1 mMol phoshate has 1.47 mEq potassium Infuse over 4 hours Coreg 25 mg, 1 tab, No Longer [place] Route: PO, Drug Active 2018 Medical form: TAB, BID, Center Dosing Weight 155.455, kg, Start date: 04/19/18 23:00:00 HEAD OF MAINTENANCE, Duration: 30 day, Stop date: 05/19/18 21:00:00 CSTNotes: Give with food. (Same As: Coreg) vancomycin + 1.5 gm, Route: No Longer [place] Sodium Chloride IVPB, ABXQ8H, Active 2018 Medical 0.9% IV 250 mL Start date: Center 04/19/18 21:00:00 HEAD OF MAINTENANCE, Duration: 30 day, Stop date: 05/19/18 13:00:00 HEAD OF MAINTENANCE, ABX Indication: PneumoniaNotes: TIME CRITICAL MEDICATION (Same As: Vancocin) Infusion rate 2001 mg: infuse over 2.5 hours For adult patients only: Round to nearest 250 mg per Medical Staff approval MEDICATION WASTE Product Size: 1000 mg Product Wasted: ___ mg Xarelto 20 mg, 1 tab, No Longer [place] Route: PO, Drug Active 2018 Medical form: TAB, QPM, Center Dosing Weight 155.455, kg, Start date: 04/19/18 17:00:00 HEAD OF MAINTENANCE, Duration: 30 day, Stop date: 05/18/18 17:00:00 CSTNotes: (Same as: Xarelto) Administer with food potassium 2 pkt, Route: PO, Inactive [place] phosphate-sodium Drug Form: 2019 Medical phosphate 250 PDR/REC, Dosing Center mg-280 mg-160 mg Weight 155.455, oral powder for kg, ONCE, Start reconstitution date: 04/19/18 13:55:00 HEAD OF MAINTENANCE, Stop date: 04/19/18 13:55:00 CSTNotes: (Same as: Phos-NaK) Each 1.5 gm pkt has 250mg phosphorous. Mix w/2.5oz water and stir. Coreg 12.5 mg, 1 tab, Inactive [place] Route: PO, Drug 2019 Medical form: TAB, ONCE, Center Dosing Weight 155.455, kg, Start date: 04/19/18 12:55:00 HEAD OF MAINTENANCE, Stop date: 04/19/18 12:55:00 CSTNotes: Give with food. (Same As: Coreg) vancomycin + 2,500 mg, Route: Inactive [place] Sodium Chloride IVPB, ONCE, 2018 Medical 0.9% IV 500 mL Priority: STAT, Center Start date: 04/19/18 12:20:00 HEAD OF MAINTENANCE, Stop date: 04/19/18 12:20:00 HEAD OF MAINTENANCE, ABX Indication: PneumoniaNotes: TIME CRITICAL MEDICATION (Same As: Vancocin) Infusion rate 2001 mg: infuse over 2.5 hours For adult patients only: Round to nearest 250 mg per Medical Staff approval MEDICATION WASTE Product Size: 1000 mg Product Wasted: ___ mg Coreg 12.5 mg, Route: Inactive [place] PO, BID, Dosing 2018 Medical Weight 155.455, Center kg, Start date: 04/19/18 11:51:00 HEAD OF MAINTENANCE, Duration: 30 day, Stop date: 05/19/18 9:00:00 HEAD OF MAINTENANCE Vancomycin 2.5 gm, Route: Inactive [place] IV, Q12H, Dosing 2019 Medical Weight 155.455, Center kg, Start date: 04/19/18 11:50:00 HEAD OF MAINTENANCE, Duration: 30 day, Stop date: 05/19/18 9:00:00 HEAD OF MAINTENANCE, ABX Indication: Pneumonia Albuterol 0.833 3 mL, Route: NEB, No Longer [place] MG/ML / Drug Form: SOLN, Active 2019 Medical Ipratropium Dosing Weight Center Stamps 0.167 155.455, kg, MG/ML Inhalant RQ6H, PRN as Solution needed for shortness of breath or wheezing, Start date: 04/19/18 9:11:00 HEAD OF MAINTENANCE, Duration: 30 day, Stop date: 05/19/18 9:10:00 CSTNotes: (Same as: Duoneb) Amiodarone 150 mg, 3 mL, Inactive [place] Route: IVPB, 2019 Medical ONCE, Dosing Center Weight 155.455, kg, Start date: 04/19/18 8:19:00 HEAD OF MAINTENANCE, Stop date: 04/19/18 8:19:00 CSTNotes: Central administration only for concentrations > 2 mg/ml. "Recommendation: Use an in-line filter during administration for continuous infusions to reduce the incidence of phlebitis" (Same as Codarone) MEDICATION WASTE Product Size: 150 mg Product Wasted: __0_ mg sodium phosphate 45 mmol, 15 mL, Inactive [place] Route: IVPB, 2019 Medical ONCE, Dosing Center Weight 155.455, kg, Start date: 04/19/18 4:41:00 HEAD OF MAINTENANCE, Stop date: 04/19/18 4:41:00 HEAD OF MAINTENANCE, Phosphate level Notes: Infuse over 4 hour. Do not infuse phosphorous concurrently in the same line as TPN or IVF that contains calcium. For double lumen central lines, phosphorous may be infused in a separate lumen from TPN. Bumex 1 mg, 4 mL, No Longer [place] Route: IVP, Drug Active 2018 Medical form: INJ, Q12H, Center Dosing Weight 155.455, kg, Start date: 04/18/18 21:00:00 HEAD OF MAINTENANCE, Duration: 5 day, Stop date: 04/23/18 9:00:00 CSTNotes: (Same As: Bumex) Acetaminophen 650 mg, 2 tab, No Longer [place] Route: PO, Drug Active 2018 Medical form: TAB, Q6H, Center Dosing Weight 155.455, kg, Start date: 04/18/18 18:00:00 HEAD OF MAINTENANCE, Duration: 30 day, Stop date: 05/18/18 12:00:00 CSTNotes: Do not exceed 4 gm/day. (Same as: Tylenol) Potassium 40 mEq, 2 tab, Inactive [place] Chloride Route: PO, Drug 2018 Medical form: ERTAB, Center ONCE, Dosing Weight 155.455, kg, Priority: NOW, Start date: 04/18/18 17:55:00 HEAD OF MAINTENANCE, Stop date: 04/18/18 17:55:00 CSTNotes: (Same as: K-Dur 20) "Do Not Crush" Give with food and full glass of water For patients unable to swallow tablet, dissolve in one half glass of water. Allow about 2 minutes for the tablets to disintegrate. Stir before giving to prepare slurry and administer. Please exclude Patients with feeding tube less than 14 Citizen [place] ([place], J-tube etc) and pediatric and patients. Magnesium 1 gm, 100 mL, No Longer [place] Sulfate Route: IVPB, Drug Active 2019 Medical form: INJ, PRN, Center Dosing Weight 155.455, kg, PRN Abnormal Lab Result, For NON-ICU Patients Only., Start date: 04/18/18 17:54:00 HEAD OF MAINTENANCE, Duration: 30 day, Stop date: 05/18/18 17:53:00 CSTNotes: WASTE: F/P - Sink; E - Municipal Trash Bin Magnesium Oxide 800 mg, 2 tab, No Longer [place] Route: PO, Drug Active 2018 Medical form: TAB, PRN, Center Dosing Weight 155.455, kg, PRN Abnormal Lab Result, For NON-ICU Patients Only., Start date: 04/18/18 17:54:00 HEAD OF MAINTENANCE, Duration: 30 day, Stop date: 05/18/18 17:53:00 CSTNotes: (Same as: Mag-Ox 400) Magnesium oxide [id number] elemental magnesium Dose=____mg magnesium oxide (___mg elemental magnesium) Calcium 3 gm, 30 mL, No Longer [place] Gluconate Route: IVPB, PRN, Active 2019 Medical Dosing Weight Center 155.455, kg, PRN Abnormal Lab Result, For NON-ICU Patients Only., Start date: 04/18/18 17:54:00 HEAD OF MAINTENANCE, Duration: 30 day, Stop date: 05/18/18 17:53:00 CSTNotes: WASTE: F/P - Sink; E - Municipal Trash Bin Potassium 20 mEq, 1 tab, No Longer [place] Chloride Route: PO, Drug Active 2018 Medical form: ERTAB, PRN, Center Dosing Weight 155.455, kg, PRN Abnormal Lab Result, For NON-ICU Patients Only, Start date: 04/18/18 17:54:00 HEAD OF MAINTENANCE, Duration: 30 day, Stop date: 05/18/18 17:53:00 CSTNotes: (Same as: K-Dur 20) "Do Not Crush" Give with food and full glass of water For patients unable to swallow tablet, dissolve in one half glass of water. Allow about 2 minutes for the tablets to disintegrate. Stir before giving to prepare slurry and administer. Please exclude Patients with feeding tube less than 14 Citizen [place] ([place], J-tube etc) and pediatric and patients. potassium 2 pkt, Route: PO, No Longer [place] phosphate-sodium Drug Form: Active 2018 Medical phosphate 250 PDR/REC, Dosing Center mg-280 mg-160 mg Weight 155.455, oral powder for kg, PRN, PRN reconstitution Abnormal Lab Result, For NON-ICU Patients Only, Start date: 04/18/18 17:54:00 HEAD OF MAINTENANCE, Duration: 30 day, Stop date: 05/18/18 17:53:00 CSTNotes: (Same as: Phos-NaK) Each 1.5 gm pkt has 250mg phosphorous. Mix w/2.5oz water and stir. potassium 30 mmol, 10 mL, No Longer [place] phosphate Route: IVPB, PRN, Active 2018 Medical Dosing Weight Center 155.455, kg, PRN Abnormal Lab Result, For NON-ICU Patients Only., Start date: 04/18/18 17:54:00 HEAD OF MAINTENANCE, Duration: 30 day, Stop date: 05/18/18 17:53:00 CSTNotes: (Same as: K Phosphate.) Do not infuse phosphorous concurrently in the same line as TPN or IVF that contains calcium. For double lumen central lines, phosphorous may be infused in a separate lumen from TPN. 1 mMol phoshate has 1.47 mEq potassium Infuse over 4 hours sodium phosphate 30 mmol, 10 mL, No Longer [place] Route: IVPB, PRN, Active 2018 Medical Dosing Weight Center 155.455, kg, PRN Abnormal Lab Result, For NON-ICU Patients Only., Start date: 04/18/18 17:54:00 HEAD OF MAINTENANCE, Duration: 30 day, Stop date: 05/18/18 17:53:00 CSTNotes: Infuse over 4 hour. Do not infuse phosphorous concurrently in the same line as TPN or IVF that contains calcium. For double lumen central lines, phosphorous may be infused in a separate lumen from TPN. cefepime 1 gm, Route: IVP, No Longer [place] Drug form: INJ, Active 2018 Medical ABXQ8H, Dosing Center Weight 155.455, kg, CrCl >/=50 mL/min, Priority: NOW, Start date: 04/18/18 17:08:00 HEAD OF MAINTENANCE, Duration: 7 day, Stop date: 04/25/18 9:08:00 HEAD OF MAINTENANCE, ABX Indication: PneumoniaNotes: (Same As: Maxipime) MEDICATION WASTE Product Size: 1000 mg Product Wasted: ___ mg Flagyl 500 mg, 100 mL, No Longer [place] Route: IVPB, Drug Active 2018 Medical form: INJ, Center ABXQ8H, Dosing Weight 155.455, kg, Priority: NOW, Start date: 04/18/18 17:08:00 HEAD OF MAINTENANCE, Duration: 7 day, Stop date: 04/25/18 9:08:00 HEAD OF MAINTENANCE, ABX Indication: PneumoniaNotes: (Same as: Flagyl) Avoid alcohol. sugammadex 500 mg, 5 mL, No Longer [place] Route: IV, Drug Active 2018 Medical form: SOLN, Center ONCALL, Priority: NOW, Start date: 04/18/18 13:12:00 HEAD OF MAINTENANCE, Duration: 1 doses or times, Stop date: 04/18/18 13:17:00 CSTNotes: (Same as: Bridion) Escitalopram 5 mg, 1 tab, No Longer [place] Route: PO, Drug Active 2018 Medical form: TAB, Daily, Center Dosing Weight 155.455, kg, Start date: 04/18/18 9:00:00 HEAD OF MAINTENANCE, Duration: 30 day, Stop date: 05/17/18 9:00:00 CSTNotes: (Same as: Lexapro) Docusate Sodium 1 tab, Route: PO, No Longer [place] 50 MG / Drug Form: TAB, Active 2019 Medical sennosides, LONG-TERM Dosing Weight Center 8.6 MG Oral 155.455, kg, Tablet Daily, Start date: 04/18/18 9:00:00 HEAD OF MAINTENANCE, Duration: 30 day, Stop date: 05/17/18 9:00:00 CSTNotes: (Same as Senokot-S) Equiv. to Dayami-Colace. Losartan 25 mg, 1 tab, No Longer [place] Route: PO, Drug Active 2018 Medical form: TAB, Daily, Center Dosing Weight 155.455, kg, Start date: 04/18/18 9:00:00 HEAD OF MAINTENANCE, Duration: 30 day, Stop date: 05/17/18 9:00:00 CSTNotes: (Same as: Cozaar) clopidogrel 75 mg, 1 tab, No Longer [place] Route: PO, Drug Active 2019 Medical form: TAB, Daily, Center Dosing Weight 155.455, kg, Start date: 04/18/18 9:00:00 HEAD OF MAINTENANCE, Duration: 30 day, Stop date: 05/17/18 9:00:00 CSTNotes: (Same As: Plavix) Bupropion 100 mg, 1 tab, No Longer [place] Route: PO, Drug Active 2019 Medical form: ERTAB, Center Daily, Dosing Weight 155.455, kg, Start date: 04/18/18 9:00:00 HEAD OF MAINTENANCE, Duration: 30 day, Stop date: 05/17/18 9:00:00 CSTNotes: Do not crush or chew. (Same As: Wellbutrin SR) Bumetanide 1 mg, 1 tab, Inactive [place] Route: PO, Drug 2018 Medical form: TAB, Daily, Center Dosing Weight 155.455, kg, Start date: 04/18/18 9:00:00 HEAD OF MAINTENANCE, Duration: 30 day, Stop date: 05/17/18 9:00:00 CSTNotes: (Same As: Bumex) POLYETHYLENE 17 gm, 1 pkt, No Longer [place] GLYCOL 3350 Route: PO, Drug Active 2018 Medical form: PWDR, Center Daily, Dosing Weight 155.455, kg, Start date: 04/18/18 9:00:00 HEAD OF MAINTENANCE, Duration: 30 day, Stop date: 05/17/18 9:00:00 CSTNotes: Dissolve in 8 oz of water or juice. (Same as: Miralax) Thyroxine 150 microgram, 1 No Longer [place] tab, Route: PO, Active 2019 Medical Drug form: TAB, Center [id number], Dosing Weight 155.455, kg, Start date: 04/18/18 6:30:00 HEAD OF MAINTENANCE, Duration: 30 day, Stop date: 05/17/18 6:30:00 CSTNotes: Take 1 hour before or 2 hours after meal; Enteral feeds may interefere with the absorption of this medication. (Same as: Levothroid) Pravastatin 40 mg, 2 tab, No Longer [place] Route: PO, Drug Active 2018 Medical form: TAB, Center Bedtime, Dosing Weight 155.455, kg, Start date: 04/17/18 21:00:00 HEAD OF MAINTENANCE, Duration: 30 day, Stop date: 05/16/18 21:00:00 CSTNotes: (Same as: Pravachol) Albuterol 0.833 3 mL, Route: NEB, No Longer [place] MG/ML / Drug Form: SOLN, Active 2019 Medical Ipratropium Dosing Weight Center Stamps 0.167 155.455, kg, MG/ML Inhalant RQ6H, Start date: Solution 04/17/18 20:00:00 HEAD OF MAINTENANCE, Duration: 30 day, Stop date: 05/17/18 14:00:00 CSTNotes: (Same as: Duoneb) Glipizide 5 MG 2.5 mg=0.5 tab, Active [place] Oral Tablet PO, BID 2018 [facility] buPROPion 100 100 mg=1 tab, PO, Active [place] mg/12 hours (SR) Daily 2019 Medical oral tablet, [place] extended release Glipizide 2.5 mg, 0.5 tab, No Longer [place] Route: PO, Drug Active 2018 Medical form: TAB, BID, Center Dosing Weight 155.455, kg, Start date: 04/17/18 17:00:00 HEAD OF MAINTENANCE, Duration: 30 day, Stop date: 05/17/18 9:00:00 HEAD OF MAINTENANCE Lovenox 150 mg, 1 mL, No Longer [place] Route: SUB-Q, Active 2018 Medical Drug form: INJ, Center [id number], Dosing Weight 155.455, kg, Start date: 04/17/18 17:00:00 HEAD OF MAINTENANCE, Duration: 30 day, Stop date: 05/17/18 5:00:00 CSTNotes: Nurse to ensure documentation of patient education per anticoagulation policy. (Same as: Lovenox) Xarelto 20 mg, Route: PO, No Longer [place] Drug form: TAB, Active 2019 Medical QPM, Dosing Center Weight 155.455, kg, Start date: 04/17/18 17:00:00 HEAD OF MAINTENANCE, Duration: 30 day, Stop date: 05/16/18 17:00:00 HEAD OF MAINTENANCE carvedilol 6.25 mg, 1 tab, No Longer [place] Route: PO, Drug Active 2018 Medical form: TAB, BID, Center Dosing Weight 155.455, kg, Start date: 04/17/18 17:00:00 HEAD OF MAINTENANCE, Duration: 30 day, Stop date: 05/17/18 9:00:00 CSTNotes: Give with food. (Same As: Coreg) Phenergan 12.5 mg, 1 tab, No Longer [place] Route: PO, Drug Active 2018 Medical form: TAB, Q4H, Center Dosing Weight 155.455, kg, PRN Nausea & Vomiting, Start date: 04/17/18 16:12:00 HEAD OF MAINTENANCE, Duration: 30 day, Stop date: 05/17/18 16:11:00 CSTNotes: (Same as: Phenergan) Morphine 2 mg, 0.5 mL, No Longer [place] Route: IVP, Drug Active 2018 Medical form: SOLN, Q4H, Center Dosing Weight 155.455, kg, PRN Pain Score 7-10, Start date: 04/17/18 16:10:00 HEAD OF MAINTENANCE, Duration: 30 day, Stop date: 05/17/18 16:09:00 CSTNotes: (Same as:MORPhine Sulfate) Acetaminophen 1 tab, Route: PO, No Longer [place] 325 MG / Drug Form: TAB, Active 2019 Medical Hydrocodone Dosing Weight Center Bitartrate 5 MG 155.455, kg, Q6H, Oral Tablet PRN Pain Score [[place] 5/325] 6-10, Start date: 04/17/18 16:10:00 HEAD OF MAINTENANCE, Duration: 30 day, Stop date: 05/17/18 16:09:00 CSTNotes: (Same as: [place] 325/5) Do not exceed 4gm/day of acetaminophen. clopidogrel 75 75 mg=1 tab, PO, No Longer [place] mg oral tablet Daily, # 30 tab, Active 2018 Medical 0 Refill(s) Center losartan 25 mg 25 mg=1 tab, PO, No Longer [place] oral tablet Daily, # 30 tab, Active 2018 Medical 0 Refill(s) Center escitalopram 5 5 mg=1 tab, PO, Active [place] mg oral tablet Daily, # 30 tab, 2019 Medical 0 Refill(s) Center carvedilol 3.125 3.125 mg=1 tab, No Longer [place] mg oral tablet PO, BID, # 180 Active 2019 Medical tab, 0 Refill(s) Center pravastatin 40 40 mg=1 tab, PO, No Longer [place] mg oral tablet Bedtime, # 30 Active 2019 Medical tab, 0 Refill(s) Center levothyroxine 150 microgram=1 Active [place] 150 mcg (0.15 tab, PO, Daily, # 2019 Medical mg) oral tablet 30 tab, 0 Center Refill(s) rivaroxaban 20 20 mg=1 tab, PO, No Longer [place] MG Oral Tablet QPM, # 30 tab, 3 Active 2019 Medical [Xarelto] Refill(s) [place] bumetanide 1 mg 1 mg=1 tab, PO, No Longer [facility] oral tablet Daily, # 30 tab, Active 2019 Medical 0 Refill(s) Center Glipizide 2.5 mg, PO, BID, Inactive [place] 0 Refill(s) 2019 Medical Center Bupropion 100 mg, PO, Inactive [place] Daily, 0 2019 Medical Refill(s) [place] Zofran 4 mg, 2 mL, Inactive [place] Route: IVP, Drug 2018 Medical form: INJ, ONCE, Center Dosing Weight 155.455, kg, Start date: 04/17/18 14:18:00 HEAD OF MAINTENANCE, Stop date: 04/17/18 14:18:00 CSTNotes: (Same as: Zofran) MEDICATION WASTE Product Size: 4 mg Product Wasted: ___ mg Morphine 2 mg, 0.5 mL, Inactive [place] Route: IVP, Drug 2018 Medical form: SOLN, ONCE, Center Dosing Weight 155.455, kg, Start date: 04/17/18 13:35:00 HEAD OF MAINTENANCE, Stop date: 04/17/18 13:35:00 CSTNotes: (Same as:MORPhine Sulfate) normal saline 1,000 mL, Rate: No Longer [place] 0.9% IV 1,000 mL 75 ml/hr, Infuse Active 2018 Medical over: 13.3 hr, Center Route: IV, Dosing Weight 155.455 kg, Total Volume: 1,000, Start date: 04/17/18 13:27:00 HEAD OF MAINTENANCE, Duration: 30 day, Stop date: 05/17/18 13:26:00 HEAD OF MAINTENANCE, 2.86, m2 Glucagon 1 mg, Route: IM, No Longer [place] Drug form: Active 2019 Medical PDR/INJ, PRN, Center Dosing Weight 155.455, kg, PRN Blood Glucose Results, Start date: 04/17/18 13:17:00 HEAD OF MAINTENANCE, Duration: 30 day, Stop date: 05/17/18 13:16:00 HEAD OF MAINTENANCE Bisacodyl 10 mg, 1 supp, No Longer [place] Route: IL, Drug Active 2018 Medical form: SUPP, Center Daily, Dosing Weight 155.455, kg, PRN Constipation, Start date: 04/17/18 13:17:00 HEAD OF MAINTENANCE, Duration: 30 day, Stop date: 05/17/18 13:16:00 CSTNotes: (Same As: Dulcolax, Bisco-Lax) Melatonin 3 mg, 1 tab, No Longer [place] Route: PO, Drug Active 2018 Medical form: TAB, Center Bedtime, Dosing Weight 155.455, kg, PRN Insomnia, Start date: 04/17/18 13:17:00 HEAD OF MAINTENANCE, Duration: 30 day, Stop date: 05/17/18 13:16:00 CSTNotes: (Same as: Melatonin) Acetaminophen 650 mg, 2 tab, No Longer [place] Route: PO, Drug Active 2019 Medical form: TAB, Q4H, Center Dosing Weight 155.455, kg, PRN For Temp > 100.4 F, Start date: 04/17/18 13:17:00 HEAD OF MAINTENANCE, Duration: 30 day, Stop date: 05/17/18 13:16:00 CSTNotes: Do not exceed 4 gm/day. (Same as: Tylenol) Dextrose 50% 25 gm, 50 mL, No Longer [place] Syringe Route: IVP, Drug Active 2018 Medical Form: INJ, Dosing Center Weight 155.455, kg, PRN, PRN Blood Glucose Results, Start date: 04/17/18 13:17:00 HEAD OF MAINTENANCE, Duration: 30 day, Stop date: 05/17/18 13:16:00 HEAD OF MAINTENANCE Allergies, Adverse Reactions, Alerts No Known Medication Allergies Immunizations No Data Provided for This Section Results Order Name Results Value Reference Date Interpretation Comments Source Range CHEM PANEL Phosphorus 3.4 2.5 - 4.5 04/[address] CHEM PANEL Magnesium Lvl 2.2 1.8 - 2.4 04/[address] CHEM PANEL eGFR 74 04/25 Result Comment: [facility] eGFR is Center calculated using the CKD-EPI formula. In most young, healthy individuals the eGFR will be >90 mL/min/1.73m2 . The eGFR declines with age. An eGFR of 60-89 may be normal in some populations, particularly the elderly, for whom the CKD-EPI formula has not been extensively validated. Use of the eGFR is not recommended in the following populations:< br/>
[place] viduals with unstable creatinine concentration s, including patients and those with serious co-morbid conditions.<b r/>
Patie nts with extremes in muscle mass or diet.

The data above are obtained from the National Kidney Disease Education Program (NKDEP) which additionally recommends that when the eGFR is used in patients with extremes of body mass index for purposes of drug dosing, the eGFR should be multiplied by the estimated BMI. CHEM PANEL Potassium Lvl 4.1 3.5 - 5.1 04/[address] CHEM PANEL Chloride Lvl 105 95 - 109 04/[address] CHEM PANEL CO2 24 24 - 32 04/[address] CHEM PANEL Calcium Lvl 7.6 8.5 - 10.5 04/[address] CHEM PANEL Creatinine 1.06 0.50 - 04/25 [facility] Lvl 1.40 [facility] CHEM PANEL Sodium Lvl 138 135 - 145 04/[address] CHEM PANEL Glucose Lvl 162 70 - 99 04/[address] CHEM PANEL BUN 10 7 - 22 04/[address] CHEM PANEL AGAP 13.1 10.0 - 04/25 [place] 20.0 [facility] HEMATOLOGY Basophils 0.5 0.0 - 1.0 04/25 [facility] HEMATOLOGY Eosinophils 0.7 0.0 - 4.0 04/25 [facility] HEMATOLOGY Segs 79.8 45.0 - 04/25 [place] 75.0 [facility] HEMATOLOGY Basophils # 0.1 0.0 - 0.2 04/25 2018 [facility] HEMATOLOGY Eosinophils # 0.1 0.0 - 0.5 04/25 2018 [facility] HEMATOLOGY Monocytes # 1.3 0.0 - 0.8 04/25 [facility]2018 [facility] HEMATOLOGY Lymphocytes # 1.6 1.0 - 5.5 04/25 2018 [facility] HEMATOLOGY Neutrophils # 12.0 1.5 - 8.1 04/25 2018 [facility] HEMATOLOGY Lymphocytes 10.5 20.0 - 04/25 [place] 40.0 [facility] HEMATOLOGY Monocytes 8.5 2.0 - 12.0 04/25 2018 [facility] HEMATOLOGY MCHC 34.0 32.0 - 04/25 [place] 36.0 [facility] HEMATOLOGY MCH 31.7 27.0 - 04/25 [place] 31.0 [facility] HEMATOLOGY MCV 93.1 80.0 - 04/25 [place] 94.0 [facility] HEMATOLOGY Hct 28.6 42.0 - 04/25 [place] 54.0 [facility] HEMATOLOGY RBC 3.07 4.70 - 04/25 [place] 6.10 [facility] HEMATOLOGY WBC 15.1 3.7 - 10.4 04/25 [facility] HEMATOLOGY Platelet 416 133 - 450 04/25 [facility] HEMATOLOGY RDW 13.4 11.5 - 04/25 [place] 14.5 [facility] HEMATOLOGY MPV 7.5 7.4 - 10.4 04/25 [facility] HEMATOLOGY Hgb 9.7 14.0 - 04/25 [place] 18.0 [facility] PARATHYROID Ca Ion WB 1.05 1.05 - 04/25 [place] PROFILE 04.26 [facility] PARATHYROID Ca Norm WB 1.06 1.05 - 04/25 [facility] PROFILE 04.26 [facility] CHEM PANEL eGFR 82 04/24 [facility] Comment: The Medical eGFR is Center calculated using the CKD-EPI formula. In most young, healthy individuals the eGFR will be >90 mL/min/1.73m2 . The eGFR declines with age. An eGFR of 60-89 may be normal in some populations, particularly the elderly, for whom the CKD-EPI formula has not been extensively validated. Use of the eGFR is not recommended in the following populations:< br/>
[place] viduals with unstable creatinine concentration s, including patients and those with serious co-morbid conditions.<b r/>
Patie nts with extremes in muscle mass or diet.

The data above are obtained from the National Kidney Disease Education Program (NKDEP) which additionally recommends that when the eGFR is used in patients with extremes of body mass index for purposes of drug dosing, the eGFR should be multiplied by the estimated BMI. CHEM PANEL Glucose Lvl 144 70 - 99 04/[address] CHEM PANEL Creatinine 0.98 0.50 - 04/24 [facility] Lvl 1.40 [facility] CHEM PANEL BUN 11 7 - 22 04/[address] CHEM PANEL Chloride Lvl 105 95 - 109 04/[address] CHEM PANEL Potassium Lvl 3.6 3.5 - 5.1 04/[address] CHEM PANEL Sodium Lvl 138 135 - 145 04/[address] CHEM PANEL Calcium Lvl 7.4 8.5 - 10.5 04/[address] CHEM PANEL CO2 20 24 - 32 04/[address] CHEM PANEL AGAP 16.6 10.0 - 04/24 [place] 20.0 [facility] CHEM PANEL Phosphorus 3.1 2.5 - 4.5 04/[address] CHEM PANEL Magnesium Lvl 2.0 1.8 - 2.4 04/24 [facility]2018 [facility] HEMATOLOGY MCHC 33.7 32.0 - 04/24 [place] 36.0 [facility] HEMATOLOGY Hct 29.6 42.0 - 04/24 [place] 54.0 [facility] HEMATOLOGY MCV 92.9 80.0 - 04/24 [place] 94.0 [facility] HEMATOLOGY MCH 31.3 27.0 - 04/24 [place] 31.0 [facility] HEMATOLOGY Platelet 341 133 - 450 04/24 [facility]2018 [facility] HEMATOLOGY MPV 7.3 7.4 - 10.4 04/24 [facility] HEMATOLOGY Hgb 10.0 14.0 - 04/24 [place] 18.0 [facility] HEMATOLOGY RDW 13.3 11.5 - 04/24 [place] 14.5 [facility] HEMATOLOGY WBC 17.1 3.7 - 10.4 04/24 [facility]2018 [facility] HEMATOLOGY RBC 3.18 4.70 - 04/24 [place] 6.10 [facility] HEMATOLOGY Lymphocytes # 1.4 1.0 - 5.5 04/24 2018 [facility] HEMATOLOGY Monocytes 10.7 2.0 - 12.0 04/24 2018 [facility] HEMATOLOGY Eosinophils 0.4 0.0 - 4.0 04/24 [facility]2018 [facility] HEMATOLOGY Basophils # 0.1 0.0 - 0.2 04/24 [facility]2018 [facility] HEMATOLOGY Eosinophils # 0.1 0.0 - 0.5 04/24 [facility]2018 [facility] HEMATOLOGY Neutrophils # 13.7 1.5 - 8.1 04/24 2018 [facility] HEMATOLOGY Lymphocytes 8.2 20.0 - 04/24 [place] 40.0 [facility] HEMATOLOGY Segs 80.3 45.0 - 04/24 [place] 75.0 [facility] HEMATOLOGY Basophils 0.4 0.0 - 1.0 04/24 [facility]2018 [facility] HEMATOLOGY Monocytes # 1.8 0.0 - 0.8 04/24 [facility]2018 [facility] PARATHYROID Ca Ion WB 1.05 1.05 - 04/24 [facility] PROFILE 04.26 [facility] PARATHYROID Ca Norm WB 1.08 1.05 - 04/24 [facility] PROFILE 04.26 [facility] CHEM PANEL Magnesium Lvl 2.3 1.8 - 2.4 04/23 2018 [facility] CHEM PANEL Phosphorus 2.6 2.5 - 4.5 04/23 2018 [facility] ELECTROLYTES AGAP 10.4 10.0 - 04/23 [place] 20.0 [facility] ELECTROLYTES eGFR 82 04/23 [facility] Comment: The Medical eGFR is Center calculated using the CKD-EPI formula. In most young, healthy individuals the eGFR will be >90 mL/min/1.73m2 . The eGFR declines with age. An eGFR of 60-89 may be normal in some populations, particularly the elderly, for whom the CKD-EPI formula has not been extensively validated. Use of the eGFR is not recommended in the following populations:< br/>
[place] viduals with unstable creatinine concentration s, including patients and those with serious co-morbid conditions.<b r/>
Patie nts with extremes in muscle mass or diet.

The data above are obtained from the National Kidney Disease Education Program (NKDEP) which additionally recommends that when the eGFR is used in patients with extremes of body mass index for purposes of drug dosing, the eGFR should be multiplied by the estimated BMI. ELECTROLYTES Glucose Lvl 113 70 - 99 04/[address] ELECTROLYTES Creatinine 0.98 0.50 - 04/23 [facility] Lvl 1.40 [facility] ELECTROLYTES BUN 14 7 - 22 04/[address] ELECTROLYTES Chloride Lvl 102 95 - 109 04/[address] ELECTROLYTES Sodium Lvl 135 135 - 145 04/[address] ELECTROLYTES Potassium Lvl 3.4 3.5 - 5.1 04/[address] ELECTROLYTES CO2 26 24 - 32 04/[address] ELECTROLYTES Calcium Lvl 8.1 8.5 - 10.5 04/[address] HEMATOLOGY Basophils # 0.1 0.0 - 0.2 04/[address] HEMATOLOGY Eosinophils # 0.1 0.0 - 0.5 04/[address] HEMATOLOGY Monocytes # 2.0 0.0 - 0.8 04/[address] HEMATOLOGY Segs 83.4 45.0 - 04/23 [place] 75.0 [facility] HEMATOLOGY Lymphocytes 6.0 20.0 - 04/23 [place] 40.0 [facility] HEMATOLOGY Eosinophils 0.5 0.0 - 4.0 04/[address] HEMATOLOGY Monocytes 9.8 2.0 - 12.0 04/[address] HEMATOLOGY Lymphocytes # 1.2 1.0 - 5.5 04/[address] HEMATOLOGY Neutrophils # 17.3 1.5 - 8.1 04/[address] HEMATOLOGY Basophils 0.3 0.0 - 1.0 04/[address] HEMATOLOGY WBC 20.8 3.7 - 10.4 04/[address] HEMATOLOGY MCHC 34.0 32.0 - 04/23 [facility] 36.0 [facility] HEMATOLOGY MCH 31.5 27.0 - 04/23 [facility] 31.0 [facility] HEMATOLOGY Hgb 10.6 14.0 - 04/23 [facility] 18.0 [facility] HEMATOLOGY RBC 3.36 4.70 - 04/23 [facility] 6.10 [facility] HEMATOLOGY MCV 92.5 80.0 - 04/23 [facility] 94.0 [facility] HEMATOLOGY Hct 31.1 42.0 - 04/23 [facility] 54.0 [facility] HEMATOLOGY MPV 7.3 7.4 - 10.4 04/[address] HEMATOLOGY Platelet 309 133 - 450 04/[address] HEMATOLOGY RDW 13.7 11.5 - 04/23 [facility] 14.5 [facility] CHEM PANEL Globulin 4.0 2.7 - 4.2 04/[address] CHEM PANEL A/G Ratio 0.6 0.7 - 1.6 04/[address] CHEM PANEL Total Protein 6.3 6.4 - 8.4 04/[address] CHEM PANEL Albumin Lvl 2.3 3.5 - 5.0 04/[address] CHEM PANEL Alk Phos 117 39 - 136 04/[address] CHEM PANEL Bili Indirect 0.8 0.0 - 1.0 04/[address] CHEM PANEL Bili Direct 0.4 0.0 - 0.3 04/[address] CHEM PANEL ALT 35 0 - 65 04/[address] CHEM PANEL Bili Total 1.2 0.2 - 1.3 04/[address] CHEM PANEL AST 38 0 - 37 04/[address] PARATHYROID Ca Norm WB 1.08 1.05 - 04/22 [place] PROFILE 04.26 [facility] PARATHYROID Ca Ion WB 1.10 1.05 - 04/22 [place] PROFILE 04.26 [facility] CHEM PANEL Total Protein 6.2 6.4 - 8.4 04/[address] CHEM PANEL Albumin Lvl 2.3 3.5 - 5.0 04/[address] CHEM PANEL Bili Indirect 1.0 0.0 - 1.0 04/[address] CHEM PANEL Bili Direct 0.6 0.0 - 0.3 04/[address] CHEM PANEL Bili Total 1.6 0.2 - 1.3 04/[address] CHEM PANEL Alk Phos 79 39 - 136 04/[address] CHEM PANEL ALT 32 0 - 65 04/[address] CHEM PANEL AST 29 0 - 37 04/[address] CHEM PANEL A/G Ratio 0.6 0.7 - 1.6 04/[address] CHEM PANEL Globulin 3.9 2.7 - 4.2 04/[address] TOXICOLOGY Vanco Tr TND 1300 04/[address] TOXICOLOGY Vanco Tr 21.6 04/[address] CHEM PANEL Albumin Lvl 2.6 3.5 - 5.0 04/[address] CHEM PANEL ALT 48 0 - 65 04/[address] CHEM PANEL Globulin 3.6 2.7 - 4.2 04/[address] CHEM PANEL Bili Indirect 1.9 0.0 - 1.0 04/[address] CHEM PANEL Alk Phos 113 39 - 136 04/[address] CHEM PANEL Bili Direct 0.7 0.0 - 0.3 04/[address] CHEM PANEL Bili Total 2.6 0.2 - 1.3 04/[address] CHEM PANEL AST 37 0 - 37 04/[address] CHEM PANEL A/G Ratio 0.7 0.7 - 1.6 04/[address] CHEM PANEL Total Protein 6.2 6.4 - 8.4 04/[address] HEMATOLOGY RBC Morph Normal 04/19 [facility] (04/19/18 9:07 AM) /2018 [facility] HEMATOLOGY Plt Morph Normal 04/19 [facility] (04/19/18 9:07 AM) /2018 [facility] HEMATOLOGY Bands 3.0 0.0 - 11.0 04/19 [facility]2018 [facility] HEMATOLOGY Atypical 1.0 <=0.0 % 04/19 [facility] Lymphs /2018 [facility] SPECIAL Hgb A1C 7.0 <=5.6 % 04/19 [facility] CHEMISTRY /2018 [facility] CARDIAC Troponin-T <0.010 0.000 - 04/19 [place] ENZYMES 0.100 [facility] CHEM PANEL Lipase Lvl 41 73 - 393 04/19 [place] /2018 [facility] CHEM PANEL Lactic Acid 1.8 0.5 - 2.2 04/19 [place] Lvl /2018 [facility] CARDIAC Troponin-I <0.02 0.00 - 04/19 [place] ENZYMES 0.40 [facility] CARDIAC Troponin-T <0.010 0.000 - 04/19 [place] ENZYMES 0.100 [facility] CARDIAC Troponin-T <0.010 0.000 - 04/19 [place] ENZYMES 0.100 [facility] CARDIAC Troponin-I 0.02 0.00 - 04/19 [facility] ENZYMES 0.40 [facility] HEMATOLOGY Anti-Xa Low 0.92 04/19 [facility] Molecular [facility] CARDIAC Troponin-I <0.02 0.00 - 04/18 [facility] ENZYMES 0.40 [facility] HEMATOLOGY INR 1.23 0.85 - 04/18 [place] 1.17 [facility] HEMATOLOGY PTT 39.7 22.9 - 04/18 [place] 35.8 [facility] HEMATOLOGY PT 15.3 12.0 - 04/18 [place] 14.7 [facility] Center DRUG SCREEN U Negative Negative 04/18 [facility] Phencyclidine *NA Medical Scr (04/17/18 7:01 PM) Center DRUG SCREEN UDS Note See Note 04/18 [facility] (04/17/18 7:01 PM) [facility] Center DRUG SCREEN U Propoxyph Negative Negative 04/18 [place] Scr *NA* Medical (04/17/18 7:01 PM) Center DRUG SCREEN U Methadone Negative Negative 04/18 [place] Scr *NA* Medical (04/17/18 7:01 PM) Center DRUG SCREEN U Cocaine Scr Negative Negative 04/18 [place] *NA* Medical (04/17/18 7:01 PM) Center DRUG SCREEN U Cannab Scr Negative Negative 04/18 [place] *NA* Medical (04/17/18 7:01 PM) Center DRUG SCREEN U Opiate Scr Positive Negative 04/18 [facility] *ABN* Medical (04/17/18 7:01 PM) Center DRUG SCREEN U Kristi Scr Negative Negative 04/18 [facility] *NA* [facility] (04/17/18 7:01 PM) Center DRUG SCREEN U Benzodiaz Negative Negative 04/18 [facility] Scr *NA* [facility] (04/17/18 7:01 PM) Center DRUG SCREEN U Amph Scr Negative Negative 04/18 [facility] *NA* [facility] (04/17/18 7:01 PM) [place] BLOOD BANK ABO/Rh A POS 04/17 [facility] RESULTS [facility] BLOOD BANK Antibody Scrn Negative 04/17 [facility] RESULTS (04/17/18 2:34 PM) [facility] CARDIAC proBNP 274 0 - 125 04/17 [facility] ENZYMES [facility] CARDIAC BNP 25 <=100 04/17 [facility] ENZYMES pg/mL [facility] CHEM PANEL B/C Ratio 14 6 - 25 04/17 [facility] CHEM PANEL Lipase Lvl 45788 73 - 393 04/17 [facility] [address] [place] [address] LIPIDS CHD Risk 3.40 4.00 - 04/17 [facility] 7.30 [facility] LIPIDS Chol 146 <=199 04/17 [facility] mg/dL [facility] LIPIDS HDL 43 >=61 mg/dL 04/17 [facility] LIPIDS Trig 114 <=149 04/17 [facility] mg/dL [facility] LIPIDS LDL 80 <=99 mg/dL 04/17 [facility] (Calculated) [facility] LIPIDS VLDL 23 04/17 [facility] Pathology Reports No Data Provided for This Section Diagnostic Reports Report Value Date Source Abdomen/Pelvis w IV EXAM: CT ABDOMEN AND PELVIS WITH CONTRAST 04/22/[address] [facility] [facility] contrast CT DATE: 04/22/2018 2007 hours Center INDICATION: Epigastric pain, severe pancreatitis. COMPARISON: CT abdomen pelvis from outside study on 04/17/2018. TECHNIQUE: Volumetric CT of the abdomen and pelvis is acquired following the intravenous administration of contrast. Axial, coronal and sagittal images are provided. IV contrast: 100 mL of Omnipaque 350. Enteric contrast: 24 ml of Gastroview. DLP: 2736 mGy-cm FINDINGS: Lines, tubes and hardware: Multiple median sternotomy wires and postsurgical changes from coronary bypass surgery.. Lower thorax: Unchanged appearance of left posterior pleural thickening or trace amount of pleural effusion. Scattered streaky opacities likely representing subsegmental atelectasis. Punctate radiodensi ty or calcification along the medial posterior pleura which could be related to prior asbestosis exposure. Liver: Unremarkable. Biliary tree: No intra- or extrahepatic biliary ductal dilation. Gallbladder: Small layering hyperdense material within the gallbladder which could represent sludge or stone. No inflammation. Pancreas: Interval increase in degree of peripancreatic fatty infiltration and development of homogeneous fluid dense ill-defined collection which extends superiorly up to the level of the stomach and l aterally along the lateral conal fascia. No air pockets identified within the collection to suggest necrotic material. In addition, there is a 5.2 x 3 x 2.4 cm relatively well-defined hyperdense material within the head/neck junction of the pancreas. Spleen: Multiple punctate scattered hypodensities likely a sequela of prior granulomatous infection. Adrenals: 2.4 cm right adrenal nodule with Hounsfield unit of 28. Unremarkable left adrenal gland. Kidneys and ureters: Normal. Bladder: Normal. Reproductive organs: Prostate and seminal vesicles are unremarkable. Gastrointestinal tract: Stomach: Small sliding hiatal hernia. Small bowel: Normal. Colon: Normal. Appendix: Normal. Peritoneum, mesentery and retroperitoneum: No free air, ascites or loculated fluid. Lymph nodes: Few subcentimeter retroperitoneal lymph nodes, likely reactive Vasculature: Aorta and branches: Moderate-severe atherosclerotic vascular calcification of the abdominal aorta with its branches, especially splenic artery and aortoiliac vasculature without severe stenosis IVC and veins: Unremarkable. Portal vasculature: No definite thrombosis of the main portal vein, SMV and splenic vein. Bones: No acute bony abnormality. Severe spondylosis involving the L2-L3 with severe narrowing of the disc space. Soft tissues: Small fat-containing bilateral inguinal hernia. IMPRESSION: 1. Acute peripancreatic collection with interval worsening of interstitial edematous pancreatitis, when compared to 04/17/2018. In addition, 5.2 x 3 x 2.4 cm ill-defined hyperdense material within the head/neck junction of the pancreas, suggestive of focal hematoma or hemorrhage. Given the lack of arterial phase is difficult to determine the source of hemorrhage. Findings may suggest transformation to acute hemorrhagic pancreatitis 2. Stable indeterminate right adrenal nodule, 2.4 cm, statistically a benign adenoma. 3. Gallbladder sludge or stone without inflammation. Chest 1view DX EXAM: XR CHEST 1 VIEW 04/19/2018 [facility] DATE: 04/19/2018 3:00 [facility] Center INDICATION: - Aspiration PNA COMPARISON: Chest x-ray from yesterday TECHNIQUE: AP chest. UT SECTION: Chest FINDINGS: Lines, tubes and hardware: Unchanged. Lungs and pleura: No pneumothorax. Trace bilateral pleural effusions. Stable platelike bibasilar opacities more prominent on the left. Heart and mediastinum: The cardiomediastinal silhouette is unchanged. Bones: Unchanged. IMPRESSION: Stable platelike bibasilar opacities either representing subsegmental atelectasis or infection, more on the left side. Chest 1view DX EXAM: XR CHEST 1 VIEW 04/18/2018 [facility] DATE: 04/18/2018 17:16 [facility] Center INDICATION: - Poss ASP PNA during intubation in OR. Comparison: 04/17/2018 upright portable chest radiograph FINDINGS: The lungs are low in volume with linear patchy airspace opacities most prominent in the right lower lung. This may represent subsegmental atelectasis or pneumonia. The lung apices are clear. The cardiom ediastinal silhouette is partially obscured but otherwise unchanged. IMPRESSION: Low lung volumes with patchy airspace opacities most prominent in the right lower lung. ERCP Diagnostic DX EXAM: FLUOROSCOPY ERCP 04/18/2018 [facility] DATE: 04/18/2018 13:11 [facility] Center INDICATION: - BILE DUCT STONES ADDITIONAL INFORMATION: Procedure note: 'Multiple stones were swept out of the bile duct with a balloon catheter.' COMPARISON: None. TECHNIQUE: 4 images were provided for interpretation. FLUOROSCOPY TIME: 1 minute. 77.13 mGy, 20.95 mGy-cm2. FINDINGS: No significant intra or extrahepatic biliary ductal dilatation. No strictures seen. IMPRESSION: Status post sweeping of stones from bile duct with balloon catheter. Abdomen wo contrast EXAM: MR ABDOMEN WITHOUT CONTRAST 04/17/2018 [facility] MRI DATE: 04/17/2018 20:25 [facility] Center INDICATION: - Pancreatitis ADDITIONAL INFORMATION: CHF, MANUELA, DM, a-fib (on Plavix and Xarelto), morbid obesity, hypothyroidism, CAD s/p CABG and 5 stents (PCI) who presented from [facility] for acute pancreatitis for possible ERCP. COMPARISON: No CT abdomen pelvis without IV contrast 03/17/2019 and abdomen ultrasound 04/17/2018. TECHNIQUE: Multiplanar, multisequence acquisition of the abdomen without intravenous contrast. IV contrast: None. Enteric contrast: None. FINDINGS: Lines, tubes and hardware: None. Lower thorax: Small bilateral pleural effusions. Liver: No hepatomegaly. No focal hepatic lesions. Biliary tree: * No intra- or extrahepatic biliary ductal dilation. * Two small filing defects in the dependent portion of distal CBD ( series 401, image 15 and image 14), representing choledocholithiasis. Gallbladder: Layering calculi within the gall bladder lumen. No gall bladder wall thickening or pericholecystic fluid. Pancreas: * Edematous appearance of the pancreas with extensive surrounding inflammatory change and moderate amount of fluid extending into bilateral anterior pararenal space. * No pseudocyst formation. * No focal mass or atrophy. Spleen: No splenomegaly. Adrenals: 1.7 x 2.1 cm right adrenal nodule (series 401, image 22). Kidneys and ureters: * No hydronephrosis or hydroureter. * Small bilateral kidneys, measuring 8.4 cm on the right and 7.5 cm on the left, with mild perinephric stranding. * Few subcentimeter cysts in left kidney. Gastrointestinal tract: Stomach: Normal. Small bowel: Normal. Colon: Normal. Peritoneum, mesentery and retroperitoneum: Mild ascites. No free air or loculated fluid. Lymph nodes: Normal. Vasculature: Normal. Bones: Degenerative changes of lower thoracic and lumbar spine. Soft tissues: Normal. IMPRESSION: 1. Marked diffuse edema of pancreas with extensive peripancreatic inflammatory changes and moderate amount of fluid extending into the bilateral anterior pararenal spaces. Findings are suggestive of acute edema at this pancreatitis. 2. Two small filling defects within the distal CBD, consistent with choledocholithiasis. No intrahepatic or extrahepatic biliary ductal dilation. 3. Cholelithiasis without evidence of cholecystitis. 4. Small bilateral pleural effusions. 5. Small right adrenal nodule, statistically benign adenoma. Abdomen RUQ US EXAM: US ABDOMEN LIMITED 04/17/2018 [facility] DATE: 04/17/2018 13:15 [facility] Center INDICATION: - acute pancreatitis ADDITIONAL INFORMATION: None. COMPARISON: Right upper quadrant ultrasound 04/17/2018, CT abdomen pelvis TECHNIQUE: Multiplanar grayscale and color Doppler ultrasound of the right upper quadrant. Exam quality limited by body habitus and overlying bowel gas. FINDINGS: Liver: Craniocaudal length: 15.6 cm. Echogenicity: Increased Surface: Normal. Mass (size and location): None. Main portal vein: Caliber: 0.8 cm. Flow: Hepatopetal. Bile ducts: Common bile duct diameter: 0.47 cm. Intrahepatic ducts: Normal. Gallbladder: The gallbladder was poorly evaluated on today's examination due to body habitus and bowel gas. Gallstones: Multiple small gallstones are seen on the comparison CT and ultrasound. Gallbladder sludge: None. Gallbladder wall: 0.3 cm. Polyps/masses: None. Pericholecystic fluid: None. Sonographic Boateng sign: Absent. Pancreas: Obscured by bowel gas. Spleen: Size: 10 x 3.2 x 2.9 cm. Mass or focal lesion (size and location): None. Right kidney: Size: 8.9 x 5.7 x 5.1 cm. Cortical thickness: Normal. Hydronephrosis: None. Echogenicity: Normal. Calculi: None. Cysts/Masses: None. Free fluid: None. Other: None. IMPRESSION: 1. Examination limited by body habitus and bowel gas. Within this limitation , small gallstones are seen without evidence of cholecystitis. 2. The pancreas was unable to be evaluated. Consultation Notes No Data Provided for This Section Discharge Summaries No Data Provided for This Section History and Physicals No Data Provided for This Section Vital Signs Vital Sign Value Date Comments Source Respitory Rate 23 04/25/[address] [facility] Respitory Rate 21 04/25/[address] [facility] Systolic (mm Hg) 152 04/25/[address] [facility] Diastolic (mm Hg) 81 04/25/[address] [facility] Respitory Rate 26 04/25/[address] [facility] Temperature Oral (F) 97.8 F 04/25/[address] [facility] Systolic (mm Hg) 141 04/25/[address] [facility] Diastolic (mm Hg) 71 04/25/[address] [facility] Systolic (mm Hg) 140 04/25/[address] [facility] Diastolic (mm Hg) 76 04/25/[address] [facility] Temperature Oral (F) 98.9 F 04/25/[address] [facility] Temperature Oral (F) 99.9 F 04/25/[address] [facility] Height 185.42 cm 04/19/[address] [facility] Weight 155.455 04/19/[address] [facility] Heart Rate 70 04/18/[address] [facility] Heart Rate 66 04/18/[address] [facility] Heart Rate 66 04/18/[address] [facility] BMI Calculated 45.22 04/17/[address] [facility] Weight 155.455 04/17/[address] [facility] Height 185.42 cm 04/17/[address] [facility] Encounters Location Location Encounter Encounter Reason Attending ADM DC Status Source Details Type Number For Provider Date Date [facility] [id number] Cori 04/17 04/25 [facility] Nathen Erasmo /2018 [facility] Procedures Procedure Code Date Perfomer Comments Source Bypass [id number] [facility] Insertion of [id number] [facility] coronary artery Medical stent Center Assessment and Plan Assessment and Plan Date Source Extracted from:Title: EGS Discharge Summary 04/25/[address] [facility] Author: Kaya Esquivel MD Date: 04/25/18 Cori Zimmerman MD Date of Admission: Patient was admitted on 04/17/2018 Date of Discharge: 04/25/2018 09:39 Admission Diagnosis: Biliary acute pancreatitis without necrosis or infection (K85.10) Acute pancreatitis without necrosis or infection, unspecified (K85.90) Discharge Diagnosis: Biliary acute pancreatitis without necrosis or infection (K85.10) Acute pancreatitis without necrosis or infection, unspecified (K85.90) PE at discharge Constitutional: NAD, morbidly obese Neuro: awake, responsive HEENT: NCAT CV: hemodynamically stable Pulm: CTAB, on RA Abdomen: NTND, soft, morbidly obese MSK: moves all extremities Consultations: Consulting Physicians: Sander Vazquez MD Office: Service: Gastroenterology Lucas Leger MD Office: Service: Medicine Mat Flores MD Office: Service: Medicine, Gastroenterology Graciela Duran MD Office: Service: Medicine Mike Siu MD Office: Service : Gastroenterology Operative Procedures: (no surgical procedures documented) Imaging Studies (last 36 hours) (none) 24hr Labs 04/25 0336 Ca Ion WB 1.05 Ca Norm WB 1.06 Glucose Lvl 162 H BUN 10 Creatinine Lvl 1.06 Sodium Lvl 138 Potassium Lvl 4.1 Chloride Lvl 105 CO2 24 AGAP 13.1 Calcium Lvl 7.6 L eGFR 74 Magnesium Lvl 2.2 Phosphorus 3.4 WBC 15.1 H RBC 3.07 L Hgb 9.7 L Hct 28.6 L MCV 93.1 MCH 31.7 H MCHC 34.0 RDW 13.4 Platelet 416 MPV 7.5 Segs 79.8 H Monocytes 8.5 Lymphocytes 10.5 L Eosinophils 0.7 Basophils 0.5 Neutrophils # 12.0 H Lymphocytes # 1.6 Monocytes # 1.3 H Eosinophils # 0.1 Basophils # 0.1 04/24 2156 POC Performing Locatio See Note Glucose POC 203 H 04/24 1717 POC Performing Locatio See Note Glucose POC 135 H 04/24 1243 POC Performing Locatio See Note Glucose POC 183 H Hospital Course: Mr. Jalloh is a 62 year old male with a past medical history of morbid obesity ( BMI 46, 155 kg), hypothyroid, DM, CHF, MANUELA, CAD s/p CABG, A-fib that presented from an outside hospital with gallstone pancr eatitis. 04/18 ERCP with sphincterotomy. Dark BM afterword. GI consulted. Patient treated with protonix drip and BM improved. CT showed severe inflammation of pancreas, worse from previous scan concern f or hemorrhagic pancreatitis. Xarelto held due to risk of bleed from pancreatic collection greater than complication risk from Afib off Xarelto. Plavix stopped as last heart stent 5 years ago. 81 mg of A spirin started. Cardiology was consulted and approved this. Losartin discontinued as patient was not hypertensive. Coreg changed to 25 mg BID for heart failure. Patient instructed to follow up with his patient intake representative and PCP before interval cholecystectomy. Return precaustions given. He will have close follow up with Dr. Mann in a week to discuss planning of cholecystectomy. Patient is open to more dis cussion about bariatric surgery. On day of discharge, patient was tolerating regular diet, pain controlled with PO medications, ambulating, and afebrile. Discharge Instructions: Activity: As tolerated, no heavy lifting Incision care: N/A Diet: May resume heart healthy diet Medication List Active Medications Ordered acetaminophen: 650 mg, 2 tab, PO, Q6H. albuterol-ipratropium: 3 mL, NEB, RQ6H, PRN: as needed for shortness of breath or wheezing. aspirin: 81 mg, 1 tab, PO, Daily. atorvastatin: 40 mg, 1 tab, PO, Bedtime. bisacodyl: 10 mg, 1 supp, IL, Daily, PRN: Constipation. buPROPion: 100 mg, 1 tab, PO, Daily. carvedilol: 25 mg, 1 tab, PO, Q12H. Dextrose 50% in Water IV: 12.5 gm, 25 mL, IVP, PRN, PRN: Blood Glucose Results. Dextrose 50% in Water IV: 25 gm, 50 mL, IVP, PRN, PRN: Blood Glucose Results. docusate-senna: 1 tab, PO, Daily. enoxaparin: 40 mg, 0.4 mL, SUB-Q, Q12H. escitalopram: 5 mg, 1 tab, PO, Daily. glucagon: 1 mg, IM, PRN, PRN: Blood Glucose Results. Insulin regular: 1 unit, 0.01 mL, SUB-Q, TID-Before Meals, PRN: Blood Glucose Results. Insulin regular: 2 unit, 0.02 mL, SUB-Q, TID-Before Meals, PRN: Blood Glucose Results. Insulin regular: 3 unit, 0.03 mL, SUB-Q, TID-Before Meals, PRN: Blood Glucose Results. Insulin regular: 4 unit, 0.04 mL, SUB-Q, TID-Before Meals, PRN: Blood Glucose Results. Insulin regular: 5 unit, 0.05 mL, SUB-Q, TID-Before Meals, PRN: Blood Glucose Results. levothyroxine: 150 microgram, 1 tab, PO, Q630AM. melatonin: 3 mg, 1 tab, PO, Bedtime, PRN: Insomnia. pantoprazole: 40 mg, IV, Q12H. promethazine: 12.5 mg, 1 tab, PO, Q4H, PRN: Nausea and Vomiting. sugammadex: 500 mg, 5 mL, IV, ONCALL. tramadol: 50 mg, 1 tab, PO, Q4H, PRN: Pain Score 1-5. Prescribed acetaminophen: 650 mg, 2 tab, PO, Q6H, 50 tab, 0 Refill(s). aspirin: 81 mg, 1 tab, PO, Daily, 30 tab, 0 Refill(s). atorvastatin: 40 mg, 1 tab, PO, Bedtime, 30 tab, 0 Refill(s). carvedilol: 25 mg, PO, Q12H, 30 tab, 0 Refill(s). omeprazole: 40 mg, 1 cap, PO, Daily, 30 cap, 0 Refill(s). Documented buPROPion: 100 mg, 1 tab, PO, Daily. escitalopram: 5 mg, 1 tab, PO, Daily, 30 tab, 0 Refill(s). glipiZIDE: 2.5 mg, 0.5 tab, PO, BID. levothyroxine: 150 microgram, 1 tab, PO, Daily, 30 tab, 0 Refill(s) . Suspended clopidogrel: 75 mg, 1 tab, PO, Daily. rivaroxaban: 20 mg, 1 tab, PO, QPM. Medications Inactivated in the Last 72 Hours acetaminophen-hydrocodone: 1 tab, PO, Q6H, PRN: Pain Score 6-10. bumetanide: 1 mg, 1 tab, PO, Daily, 30 tab, 0 Refill(s). buPROPion: 100 mg, 1 tab, PO, Daily. calcium gluconate + Sodium Chloride 0.9% IV 120 mL: 3 gm, 30 mL, 150 ml/hr, IVPB, PRN, PRN: Abnormal Lab Result. calcium gluconate + Sodium Chloride 0.9% IV 80 mL: 2 gm, 20 mL, 100 ml/hr, IVPB, PRN, PRN: Abnormal Lab Result. carvedilol: 25 mg, 1 tab, PO, BID. clopidogrel: 75 mg, 1 tab, PO, Daily, 30 tab, 0 Refill(s). Dextrose 50% in Water IV: 12.5 gm, 25 mL, IVP, PRN, PRN: Blood Glucose Results. Dextrose 50% in Water IV: 25 gm, 50 mL, IVP, PRN, PRN: Blood Glucose Results. enoxaparin: 40 mg, 0.4 mL, SUB-Q, [id number]. glucagon: 1 mg, IM, PRN, PRN: Blood Glucose Results. iohexol: 100 mL, IVP, ONCALL. losartan: 50 mg, 1 tab, PO, Daily. losartan: 25 mg, 1 tab, PO, Daily. losartan: 25 mg, 1 tab, PO, Daily, 30 tab, 0 Refill(s). magnesium oxide: 800 mg, 2 tab, PO, PRN, PRN: Abnormal Lab Result. magnesium oxide: 800 mg, 2 tab, PO, Daily. magnesium sulfate: 1 gm, 100 mL, 100 ml/hr, IVPB, PRN, PRN: Abnormal Lab Result. magnesium sulfate: 2 gm, 50 mL, 25 ml/hr, IVPB, PRN, PRN: Abnormal Lab Result. polyethylene glycol 3350: 17 gm, 1 pkt, PO, Daily. potassium chloride: 20 mEq, 1 tab, PO, PRN, PRN: Abnormal Lab Result. potassium chloride: 40 mEq, 2 tab, PO, BID. potassium chloride: 20 mEq, 100 mL, 50 ml/hr, IV, ONCE. potassium chloride: 20 mEq, 1 tab, PO, BID. potassium chloride: 20 mEq, 15 mL, NJ, PRN, PRN: Abnormal Lab Result. potassium chloride: 10 mEq, 50 mL, 50 ml/hr, IVPB, PRN, PRN: Abnormal Lab Result. potassium chloride: 20 mEq, 1 tab, PO, ONCE. potassium chloride: 20 mEq, 100 mL, 50 ml/hr, IV, ONCE. potassium chloride: 40 mEq, 2 tab, PO, Daily. potassium phosphate + Sodium Chloride 0.9% IV 250 mL: 15 mmol, 5 mL, 63.75 ml/hr, IVPB, PRN, PRN: Abnormal Lab Result. potassium phosphate + Sodium Chloride 0.9% IV 250 mL: 30 mmol, 10 mL, 65 ml/hr, IVPB, PRN, PRN: Abnormal Lab Result. potassium phosphate + Sodium Chloride 0.9% IV 250 mL: 15 mmol, 5 mL, 63.75 ml/hr, IVPB, ONCE. potassium phosphate-sodium phosphate: 2 pkt, PO, PRN, PRN: Abnormal Lab Result. rivaroxaban: 20 mg, 1 tab, PO, QPM, 30 tab, 3 Refill(s). sodium phosphate + Sodium Chloride 0.9% IV 250 mL: 15 mmol, 5 mL, 63.75 ml/hr, IVPB, PRN, PRN: Abnormal Lab Result. sodium phosphate + Sodium Chloride 0.9% IV 250 mL: 30 mmol, 10 mL, 65 ml/hr, IVPB, PRN, PRN: Abnormal Lab Result. Follow-up with the [facility] in 1 weeks. Please call today or tomorrow to make your appointment. Please return to the ER, or call the physician/clinic with any chest pain, shortness of breath fever >101F, nausea, vomiting, diarrhea, pain unrelieved by pain mediciation, no urine output for gr eater than 8 hours, any signs of infection around the incision/wound such as redness, swelling, drainage, or with any other concerns. Emergency General Surgery Faculty Addendum I have seen and examined the patient with the resident. I have reviewed the pertinent laboratory values and imaging studies. I agree with the assessment and plan as documented in the attached note and as detailed below: Severe acute pancreatitis with peripancreatic fluid collection -- Status post ERCP with sphincterotomy with plans for delayed cholecystectomy given the degree of inflammation initially and now presence of a peripancreatic fluid collection. He should return emergently if he develops fevers, increased pain, inability to tolerate fluids, or other concerns. We will follow him up in clinic to determine cyrus ing of cholecystectomy to prevent future pancreatitis episodes. Atrial fibrillation -- Given evidence of hemorrhagic conversion and risks of hemorrhage, we are recommending holding Xarelto. Recommend aspirin and follow- up with his primary patient intake representative. The risks and benefits were discussed with him -- hemorrhage versus stroke from atrial fibrillation. Kell Estevez MD Extracted from:Title: EGS Progress Note Author: Kaya Esquivel MD Date: 04/24/18 Mr. Jalloh is a 62 year old male with a past medical history of hypothyroid, DM, CHF, MANUELA, CAD s/p CABG, A-fib that presented from an outside hospital with gallstone pancreatitis. CT shows severe inflammation of pancreas, worse from previous scan concern for hemorrhagic pancreatitis. He is tolerating a diet, non tender on exam. Tachycardia resolved. WBC improved from 20.8 to 17.1. #Severe Gallstone Pancreatitis Strict I and O electrolyte repletion Cardiac diet Bariatric surgical options have been presented. We will discuss with [facility] surgery for involvement as appropriate Prophylaxis 40 mg Lovenox BID Disposition Pending improvement in gallstone pancreatitis. Addendum by Kell Estevez MD on 04/25/2018 09:06 [facility] Emergency General Surgery Faculty Addendum I have seen and examined the patient with the resident. I have reviewed the pertinent laboratory values and imaging studies. I agree with the assessment and plan as documented in the attached note and as detailed below: Severe acutegallstone pancreatitis with peripancreatic fluid collection --s/p ERCP with sphincterotomy. Currently asymptomatic without pain. Advance diet and observe for symptoms. Fluid collection does not appear infected.No indication for intervention at this time given timing in relation to acute pancreatitis and lack of maturity of the collection--also, patient isasymptomatic without evidenceof inf ection. Delay cholecystectomy given the peripancreatic fluid collection and risks with early cholecystectomy. CAD, a-fib -- Holding Xarelto given evidence of hemorrhagic conversion on CT. On aspirin. Continue beta surekha. Kell Estevez MD Extracted from:Title: Team A - H&P Author: Tom Denney MD Date: 04/17/18 Basic Information Source of history: Self, Significant other. Present at bedside: Significant other. Referral source: Direct physician admit, Direct admit from OSH ED. Chief Complaint acute pancreatitis History of Present Illness Patient is a 62-year-old M with a H signficant for CHF, MANUELA, DM, a-fib, morbid obesity, depression, hypothyroidismm, CAD s/p CABG and 5 stents (PCI) who presented to OSH ED with epigastric pain. Patie nt presented to OSH ED with 1 day h/o epigastric pain, SOB, pain with coughing , nausea, and emesis x1; patient was transferred to [facility] for possible ERCP for acute pancreatitis (lipase 30K, CT AP cons istent with acute pancreatitis with gall bladder sludge/stones, WBC 12). Denies chest pain, diarrhea, constipation, melena, hematochezia. Endorses diet rich in meat and fat. No fevers, chills, recent weight changes. Has CPAP at home but does not use; however, knows setting is supposed to be set at 11. Review of Systems Gen: -fever, -chill Head: -no headache, -no trauma Eyes: -visual changes, -scleral icterus Throat: -soreness, -hoarseness Pulm: +cough, -sputum production CV: -chest pain, +lower extremity edema Renal: -hematuria, -oliguria Abdomen: +pain, +nausea, -hematochezia, -melena Neuro: -weakness, -numbness Psych: -agitation, -anxiety Health Status Allergies: Allergic Reactions (All) Severity Not Documented NKDA- No reactions were documented., Allergies (1) Active Reaction NKDA None Documented Current medications: (Selected) Inpatient Medications Ordered Dextrose 50% Syringe: 12.5 gm, 25 mL, IVP, PRN, PRN: Blood Glucose Results Dextrose 50% Syringe: 25 gm, 50 mL, IVP, PRN, PRN: Blood Glucose Results Xarelto: 20 mg, PO, QPM Zofran: 4 mg, 2 mL, IVP, ONCE acetaminophen: 650 mg, 2 tab, PO, Q4H, PRN: For Temp > 100.4 F albuterol-ipratropium 2.5-0.5 mg inhalation solution: 3 mL, NEB, QID bisacodyl: 10 mg, 1 supp, [place], Daily, PRN: Constipation buPROPion: 100 mg, PO, Daily bumetanide: 1 mg, PO, Daily carvedilol: 3.125 mg, PO, BID clopidogrel: 75 mg, PO, Daily docusate-senna 50 mg-8.6 mg oral tablet: 1 tab, PO, Daily escitalopram: 5 mg, PO, Daily glipiZIDE: 2.5 mg, PO, BID glucagon: 1 mg, IM, PRN, PRN: Blood Glucose Results levothyroxine: 150 microgram, PO, Daily losartan: 25 mg, PO, Daily melatonin: 3 mg, 1 tab, PO, Bedtime, PRN: Insomnia normal saline 0.9% IV 1,000 mL: 75 ml/hr, IV, Stop: 05/17/18 13:26:00 [employer] polyethylene glycol 3350: 17 gm, 1 pkt, PO, Daily pravastatin: 40 mg, PO, Bedtime Documented Medications Suspended Xarelto 20 mg oral tablet: 20 mg, 1 tab, PO, QPM, 30 tab, 3 Refill(s) buPROPion: 100 mg, PO, Daily, 0 Refill(s) bumetanide 1 mg oral tablet: 1 mg, 1 tab, PO, Daily, 30 tab, 0 Refill(s) carvedilol 3.125 mg oral tablet: 3.125 mg, 1 tab, PO, BID, 180 tab, 0 Refill(s ) clopidogrel 75 mg oral tablet: 75 mg, 1 tab, PO, Daily, 30 tab, 0 Refill(s) escitalopram 5 mg oral tablet: 5 mg, 1 tab, PO, Daily, 30 tab, 0 Refill(s) glipiZIDE: 2.5 mg, PO, BID, 0 Refill(s) levothyroxine 150 mcg (0.15 mg) oral tablet: 150 microgram, 1 tab, PO, Daily, 30 tab, 0 Refill(s) losartan 25 mg oral tablet: 25 mg, 1 tab, PO, Daily, 30 tab, 0 Refill(s) pravastatin 40 mg oral tablet: 40 mg, 1 tab, PO, Bedtime, 30 tab, 0 Refill(s), Medications (21) Active Scheduled: (14) albuterol-ipratropium 3 mL, NEB, QID bumetanide 1 mg, PO, Daily buPROPion 100 mg, PO, Daily carvedilol 3.125 mg, PO, BID clopidogrel 75 mg, PO, Daily docusate-senna 50-8.6 mg TAB 1 tab, PO, Daily escitalopram 5 mg, PO, Daily glipiZIDE 2.5 mg, PO, BID levothyroxine 150 microgram, PO, Daily losartan 25 mg, PO, Daily ondansetron 4 mg/2ml INJ VL 4 mg 2 mL, IVP, ONCE polyethylene glycol 17 gm packet 17 gm 1 pkt, PO, Daily pravastatin 40 mg, PO, Bedtime rivaroxaban 20 mg, PO, QPM Continuous: (1) sodium chloride 0.9% 1000 ml INJ 1,000 mL 1,000 mL, IV, 75 ml/hr PRN: (6) acetaminophen 325 mg TABLET 650 mg 2 tab, PO, Q4H bisacodyl 10 mg rect SUPP 10 mg 1 supp, [place], Daily Dextrose 50% 50 ml INJ syringe 12.5 gm 25 mL, IVP, PRN Dextrose 50% 50 ml INJ syringe 25 gm 50 mL, IVP, PRN glucagon recombinant 1 mg PDR 1 mg, IM, PRN melatonin 3 mg TAB 3 mg 1 tab, PO, Bedtime Problem list: No qualifying data available Histories Past Medical History: No active or resolved past medical history items have been selected or recorded. Family History: No family history items have been selected or recorded. Procedure history: Bypass ([id number]). Social History Social and Psychosocial Habits Tobacco 04/17/2018 Use: Never smoker Previous treatment: None Ready to change: No Concerns about tobacco use in household: No Exposure to Tobacco Smoke None Cigarette Smoking Last 365 Days No Reg Smoking Cessation Counseling No . Physical Examination VS/Measurements Vital Signs (last 24 hrs) Last Charted Temp Oral 98.1 DegF (APR 17:) Heart Rate Peripheral 98 bpm (APR 17:16) Resp Rate 19 BRMIN (APR 17:) SBP H 151mmHg (APR 17:) DBP H 98mmHg (APR 17:) SpO2 96 % (APR 17:) Weight 155.45 kg (APR 17 12:57) Height 185.42 cm (APR 17 12:57) BMI 45.22 (APR 17 12:57) , Measurements from flowsheet : Measurements 04/17/2018 13:01 Heparin Dosing Weight (kg) 110.12 04/17/2018 12:57 Height 185.42 cm Height Collection Method Stated Weight 155.455 kg Dosing Weight Difference Percent 101.176 % Dosing Wt Entered is >10% of Previous Wt Confirmed Dosing Weight Collection Method Measured Body Surface Area 2.8296 m2 Body Mass Index 45.22 m2 Gen: alert and conversant, no acute distress, obese habitus HEENT: Normocephalic, atraumatic, EOMI Neck: No cervical lymphadenopathy, supple Pulm: CTA, no wheezing CV: atrial fibrillation, strong radial pulses bilaterally Abdomen: TTP over epigastrium, obese habitus, no rebound tenderness or guarding Neuro: moves all extremities, no focal deficits Psych: normal judgment, not anxious Review / Management Results review: Labs (Last four charted values) WBC H 12.9 (APR 17) Hgb 15.0 (APR 17) Hct 44.7 (APR 17) Plt 178 (APR 17) . Impression and Plan Patient is a 62-year-old M with a PMH signficant for CHF, MANUELA, DM, a-fib (on Plavix and Xarelto), morbid obesity, hypothyroidismm, CAD s/p CABG and 5 stents (PCI) who presented from OSH to [facility] for a cute pancreatitis for possible ERCP. Clinically stable, pending GI evaluation for possible ERCP and EGS for possible cholecystectomy. #Acute Pancreatitis -04/17 CT AP at OSH - moderate pancreatitis without pseudocyst, 18mm R adrenal mass nonspecific appearance -04/17 Abdominal US - Tiny echogenic structures within gall bladder may represent sludge or gallstones, normal caliber biliary tree -04/17 OSH labs: lipse >30K, AST 225, ALT 182, alk phos 151, Tbili 3.4, Dbili 2.1 -04/17 GI consulted for ERCP -NPO, mIVF, pain control, morphine PRN, Phenergan PRN, [place] PRN, Tylenol PRN #Cholelithiasis -seen on imaging as per Acute Pancreatitis section -04/17 EGS consulted for possible cholecystectomy #MANUELA -obese habitus -Has CPAP at home but does not use regularly - knows settings should be set at 11 -CPAP ordered #A-fib -EKG ordered -on Xarelto and Plavix at home - Xarelto held in case of surgery - patient receiving weight-based Lovenox -no acute issues #CHF -possibly 2/2 h/o CAD (s/p CABG and 5 stents PCI) -TTE ordered -cont home carvedilol 3.125 mg PO BID, losartan 25 mg PO QD, pravastatin 40mg PO QHS, bumatenide 1mg PO QD -strict I/O -Low Na/heart healthy/carb controlled diet when no longer NPO #T2DM -cont home glipizide 2.5mg PO BID #HTN -see CHF note - cont home meds #HLD -cont home pravastatin 40mg PO QHS #Hypothyroidism -cont home levothyroxine 150 mcg PO QD #Depression -cont home bupropion 100mg PO QD and escitalopram 5mg PO QD #MANUELA -CPAP VTE PPX: Lovenox; also on Plavix Diet: NPO Dispo: Pending GI and EGS evaluation for acute pancreatitis and cholelithiasis Addendum by Apolinar Olea MD on 04/17/2018 22:30 ATTENDING NOTE: I saw and examined this medically complex patient ; reviewed the labs; independently visualized radiographic images and reports , and agree with this note. Apolinar Olea MD Plan of Care No Data Provided for This Section Social History Social History Date Source Social History TypeResponse 04/17/[address] [facility] Smoking Status Never smoker; Previous treatment: None; Ready to change: No; Concerns about tobacco use in household: No; Exposure to Tobacco Smoke None; Cigarette Smoking Last 365 Days No; Reg Smoking Cessation Counseling No entered on: 04/17/18 Family History No Data Provided for This Section Advance Directives No Data Provided for This Section Functional Status No Data Provided for This Section
--- OUTSIDE RECORDS SUMMARY | 2018-10-28 06:31 | XMS REPORT ---
:1955 [facility] Address [address] [place] [address] Care Team Providers Name Role Phone Unavailable Unavailable Unavailable Problems This patient has no known problems. Allergies, Adverse Reactions, Alerts This patient has no known allergies or adverse reactions. Medications This patient has no known medications.
--- OUTSIDE RECORDS SUMMARY | 2018-10-28 06:31 | XMS REPORT | Summary of Care ---
:1955 Author Organization [facility] Address [address], [place] [address]- Encounter HQ Encntr_alias(FIN) [id number] Date(s): 04/17/18 - 04/25/[address] Professional Services provided by [facility] [place] [address]- Discharge Disposition: Home or Self Care Attending Physician: Cori Zimmerman MD Admitting Physician: Cori Zimmerman MD Vital Signs Most recent to oldest 1 2 3 [Reference Range]: Height 185.42 cm 185.42 cm (04/19/18 11:44 AM) (04/17/18 12:57 PM) Temperature Oral [96.4-99.1 97.8 DegF 98.9 DegF 99.9 DegF DegF] (04/25/18 8:00 AM) (04/25/18 4:18 AM) *HI* (04/25/18 12:16 AM) Blood Pressure [90-140/60-90 152/81 mmHg 141/71 mmHg 140/76 mmHg mmHg] *HI* *HI* (04/25/18 6:00 AM) (04/25/18 8:00 AM) (04/25/18 7:00 AM) Respiratory Rate [14-20 23 BRMIN 21 BRMIN 26 BRMIN BRMIN] *HI* *HI* *HI* (04/25/18 10:00 AM) (04/25/18 9:00 AM) (04/25/18 8:00 AM) Peripheral Pulse Rate 70 bpm 66 bpm 66 bpm [60-100 bpm] (04/18/18 8:00 AM) (04/18/18 5:24 AM) (04/18/18 12:08 AM) Weight 155.455 kg 155.455 kg (04/19/18 11:44 AM) (04/17/18 12:57 PM) Body Mass Index 45.22 m2 (04/17/18 12:57 PM) Problem List No data available for this section Allergies, Adverse Reactions, Alerts Substance Reaction Severity Status NKDA Active Medications acetaminophen 650 mg, 2 tab, Route: PO, Drug form: TAB, Q4H, Dosing Weight 155.455, kg, PRN For Temp > 100.4 F,Start date: 04/17/18 13:17:00 VERTICAL PUNCH OPERATOR, Duration: 30 day, Stop date: 05/17/18 13:16:00 VERTICAL PUNCH OPERATOR Notes: Do not exceed 4 gm/day. (Same as: Tylenol) Start Date: 04/17/18 Stop Date: 04/18/18 Status: Discontinuedacetaminophen 650 mg, 2 tab, Route: PO, Drug form: TAB, Q6H, Dosing Weight 155.455, kg, Start date: 04/18/18 18:00:00 VERTICAL PUNCH OPERATOR, Duration: 30 day, Stop date: 05/18/18 12:00:00 VERTICAL PUNCH OPERATOR Notes: Do not exceed 4 gm/day. (Same as: Tylenol) Start Date: 04/18/18 Stop Date: 04/25/18 Status: Discontinuedacetaminophen 325 mg oral tablet 650 mg=2 tab, PO, Q6H, # 50 tab, 0 Refill(s) Start Date: 04/25/18 Stop Date: 05/26/18 Status: Orderedalbuterol-ipratropium 2.5-0.5 mg inhalation solution 3 mL, Route: NEB, Drug Form: SOLN, Dosing Weight 155.455, kg, RQ6H, Start date: 04/17/18 20:00:00 VERTICAL PUNCH OPERATOR, Duration: 30 day, Stop date: 05/17/18 14:00:00 VERTICAL PUNCH OPERATOR Notes: (Same as: Duoneb) Start Date: 04/17/18 Stop Date: 04/19/18 Status: Discontinuedalbuterol-ipratropium 2.5-0.5 mg inhalation solution 3 mL, Route: NEB, Drug Form: SOLN, Dosing Weight 155.455, kg, RQ6H, PRN as needed for shortness of breath or wheezing, Start date: 04/19/18 9:11:00 VERTICAL PUNCH OPERATOR, Duration: 30 day, Stop date: 05/19/18 9:10:00 VERTICAL PUNCH OPERATOR Notes: (Same as: Duoneb) Start Date: 04/19/18 Stop Date: 04/25/18 Status: DiscontinuedAldactone 25 mg, 1 tab, Route: PO, Drug form: TAB, ONCE, Start date: 04/20/18 14:00:00 VERTICAL PUNCH OPERATOR , Stop date: 04/20/18 14:00:00 VERTICAL PUNCH OPERATOR Notes: (Same As: Aldactone) Start Date: 04/20/18 Stop Date: 04/20/18 Status: CompletedAMIODarone + Dextrose 5% in Water 100 mL 150 mg, 3 mL, Route: IVPB, ONCE, Dosing Weight 155.455, kg, Start date: 8:19:00 VERTICAL PUNCH OPERATOR, Stop date: 04/19/18 8:19:00 VERTICAL PUNCH OPERATOR Notes: Central administration only for concentrations > 2 mg/ml. "Recommendation: Use an in-line filter during administration for continuous infusions to reduce the incidence of phlebitis"(Same as Codarone) MEDICATION WASTE Product Size: 150 mgProduct Wasted: __0_ mg Start Date: 04/19/18 Stop Date: 04/19/18 Status: Discontinuedaspirin 81 mg, 1 tab, Route: PO, Drug form: ECTAB, Daily, Dosing Weight 155.455, kg, Start date: 04/24/18 9:00:00 VERTICAL PUNCH OPERATOR, Duration: 30 day, Stop date: 05/23/18 9:00:00 VERTICAL PUNCH OPERATOR Notes: Do not crush or chew.(Same As: Ecotrin) Start Date: 04/24/18 Stop Date: 04/25/18 Status: Discontinuedaspirin 81 mg tablet, enteric coated 81 mg=1 tab, PO, Daily, # 30 tab, 0 Refill(s) Start Date: 04/25/18 Status: Orderedatorvastatin 40 mg, 1 tab, Route: PO, Drug form: TAB, Bedtime, Dosing Weight 155.455, kg, Start date: 04/20/18 21:00:00 VERTICAL PUNCH OPERATOR, Duration: 30 day, Stop date: 05/19/18 21:00: 00 VERTICAL PUNCH OPERATOR Notes: (Same as: Lipitor) Start Date: 04/20/18 Stop Date: 04/25/18 Status: Discontinuedatorvastatin 40 mg oral tablet 40 mg=1 tab, PO, Bedtime, # 30 tab, 0 Refill(s) Start Date: 04/25/18 Status: Orderedbisacodyl 10 mg, 1 supp, Route: WV, Drug form: SUPP, Daily, Dosing Weight 155.455, kg, PRN Constipation, Startdate: 04/17/18 13:17:00 VERTICAL PUNCH OPERATOR, Duration: 30 day, Stop date : 05/17/18 13:16:00 VERTICAL PUNCH OPERATOR Notes: (Same As: Dulcolax, Bisco-Lax) Start Date: 04/17/18 Stop Date: 04/25/18 Status: Discontinuedbumetanide 1 mg, 1 tab, Route: PO, Drug form: TAB, Daily, Dosing Weight 155.455, kg, Start date: 04/18/18 9:00:00 VERTICAL PUNCH OPERATOR, Duration: 30 day, Stop date: 05/17/18 9:00:00 VERTICAL PUNCH OPERATOR Notes: (Same As: Bumex) Start Date: 04/18/18 Stop Date: 04/18/18 Status: Discontinuedbumetanide 1 mg oral tablet 1 mg=1 tab, PO, Daily, # 30 tab, 0 Refill(s) Start Date: 04/17/18 Stop Date: 04/25/18 Status: DiscontinuedBumex 1 mg, 4 mL, Route: IVP, Drug form: INJ, Q12H, Dosing Weight 155.455, kg, Start date: 04/18/18 21:00:00 VERTICAL PUNCH OPERATOR, Duration: 5 day, Stop date: 04/23/18 9:00:00 VERTICAL PUNCH OPERATOR Notes: (Same As: Bumex) Start Date: 04/18/18 Stop Date: 04/21/18 Status: DiscontinuedBumex 1 mg, 4 mL, Route: IVP, Drug form: INJ, Q12H, Dosing Weight 155.455, kg, Start date: 04/21/18 8:03:00 VERTICAL PUNCH OPERATOR, Duration: 5 day, Stop date: 04/25/18 21:00:00 VERTICAL PUNCH OPERATOR Notes: (Same As: Bumex) Start Date: 04/21/18 Stop Date: 04/21/18 Status: DiscontinuedbuPROPion 100 mg, 1 tab, Route: PO, Drug form: ERTAB, Daily, Dosing Weight 155.455, kg, Start date: 04/18/18 9:00:00 VERTICAL PUNCH OPERATOR, Duration: 30 day, Stop date: 05/17/18 9:00:00 VERTICAL PUNCH OPERATOR Notes: Do not crush or chew. (Same As: Wellbutrin SR) Start Date: 04/18/18 Stop Date: 04/24/18 Status: DiscontinuedbuPROPion 100 mg, PO, Daily, 0 Refill(s) Start Date: 04/17/18 Stop Date: 04/17/18 Status: DiscontinuedbuPROPion 100 mg/12 hours (SR) oral tablet, extended release 100 mg=1 tab, PO, Daily Start Date: 04/17/18 Status: Orderedcalcium gluconate + Sodium Chloride 0.9% IV 120 mL 3 gm, 30 mL, Route: IVPB, PRN, Dosing Weight 155.455, kg, PRN Abnormal Lab Result, For NON-ICU Patients Only., Start date: 04/18/18 17:54:00 VERTICAL PUNCH OPERATOR, Duration : 30 day, Stop date: 05/18/18 17:53:00 VERTICAL PUNCH OPERATOR Notes: WASTE: F/P - Sink; E - Municipal Trash Bin Start Date: 04/18/18 Stop Date: 04/22/18 Status: Discontinuedcalcium gluconate + Sodium Chloride 0.9% IV 80 mL 2 gm, 20 mL, Route: IVPB, PRN, Dosing Weight 155.455, kg, PRN Abnormal Lab Result, For NON-ICU Patients Only., Start date: 04/18/18 17:54:00 VERTICAL PUNCH OPERATOR, Duration : 30 day, Stop date: 05/18/18 17:53:00 VERTICAL PUNCH OPERATOR Notes: WASTE: F/P - Sink; E - Municipal Trash Bin Start Date: 04/18/18 Stop Date: 04/22/18 Status: Discontinuedcarvedilol 6.25 mg, 1 tab, Route: PO, Drug form: TAB, BID, Dosing Weight 155.455, kg, Start date: 04/17/18 17:00:00 VERTICAL PUNCH OPERATOR, Duration: 30 day, Stop date: 05/17/18 9:00: 00 VERTICAL PUNCH OPERATOR Notes: Give with food. (Same As: Coreg) Start Date: 04/17/18 Stop Date: 04/19/18 Status: Discontinuedcarvedilol 25 mg oral tablet 25 mg, PO, Q12H, # 30 tab, 0 Refill(s) Start Date: 04/25/18 Status: Orderedcarvedilol 3.125 mg oral tablet 3.125 mg=1 tab, PO, BID, # 180 tab, 0 Refill(s) Start Date: 04/17/18 Stop Date: 04/19/18 Status: Discontinuedcefepime 1 gm, Route: IVP, Drug form: INJ, ABXQ8H, Dosing Weight 155.455, kg, CrCl >/= 50 mL/min, Priority:NOW, Start date: 04/18/18 17:08:00 VERTICAL PUNCH OPERATOR, Duration: 7 day, Stop date: 04/25/18 9:08:00 VERTICAL PUNCH OPERATOR, ABX Indication: Pneumonia Notes: (Same As: Robbi) MEDICATION WASTE Product Size: 1000 mgProduct Wasted: ___ mg Start Date: 04/18/18 Stop Date: 04/21/18 Status: Discontinuedclopidogrel 75 mg, 1 tab, Route: PO, Drug form: TAB, Daily, Dosing Weight 155.455, kg, Start date: 04/18/18 9:00:00 VERTICAL PUNCH OPERATOR, Duration: 30 day, Stop date: 05/17/18 9:00:00 VERTICAL PUNCH OPERATOR Notes: (Same As: Plavix) Start Date: 04/18/18 Stop Date: 04/25/18 Status: Discontinuedclopidogrel 75 mg oral tablet 75 mg=1 tab, PO, Daily, # 30 tab, 0 Refill(s) Start Date: 04/17/18 Stop Date: 04/25/18 Status: DiscontinuedCoreg 12.5 mg, Route: PO, BID, Dosing Weight 155.455, kg, Start date: 04/19/18 11:51: 00 VERTICAL PUNCH OPERATOR, Duration: 30 day, Stop date: 05/19/18 9:00:00 VERTICAL PUNCH OPERATOR Start Date: 04/19/18 Stop Date: 04/19/18 Status: DiscontinuedCoreg 12.5 mg, 1 tab, Route: PO, Drug form: TAB, ONCE, Dosing Weight 155.455, kg, Start date: 04/19/18 12:55:00 VERTICAL PUNCH OPERATOR, Stop date: 04/19/18 12:55:00 VERTICAL PUNCH OPERATOR Notes: Give with food. (Same As: Coreg) Start Date: 04/19/18 Stop Date: 04/19/18 Status: CompletedCoreg 25 mg, 1 tab, Route: PO, Drug form: TAB, Q12H, Dosing Weight 155.455, kg, Start date: 04/22/18 21:00:00 VERTICAL PUNCH OPERATOR, Duration: 30 day, Stop date: 05/22/18 9:00:00 VERTICAL PUNCH OPERATOR Notes: Give with food. (Same As: Coreg) Start Date: 04/22/18 Stop Date: 04/25/18 Status: DiscontinuedCoreg 25 mg, 1 tab, Route: PO, Drug form: TAB, BID, Dosing Weight 155.455, kg, Start date: 04/19/18 23:00:00 VERTICAL PUNCH OPERATOR, Duration: 30 day, Stop date: 05/19/18 21:00:00 VERTICAL PUNCH OPERATOR Notes: Give with food. (Same As: Coreg) Start Date: 04/19/18 Stop Date: 04/22/18 Status: DiscontinuedDextrose 50% Syringe 25 gm, 50 mL, Route: IVP, Drug Form: INJ, Dosing Weight 155.455, kg, PRN, PRN Blood Glucose Results,Start date: 04/17/18 13:17:00 VERTICAL PUNCH OPERATOR, Duration: 30 day, Stop date: 05/17/18 13:16:00 VERTICAL PUNCH OPERATOR Start Date: 04/17/18 Stop Date: 04/25/18 Status: DiscontinuedDextrose 50% Syringe 12.5 gm, 25 mL, Route: IVP, Drug Form: INJ, Dosing Weight 155.455, kg, PRN, PRN Blood Glucose Results, Start date: 04/17/18 13:17:00 VERTICAL PUNCH OPERATOR, Duration: 30 day, Stop date: 05/17/18 13:16:00 VERTICAL PUNCH OPERATOR Start Date: 04/17/18 Stop Date: 04/25/18 Status: DiscontinuedDextrose 50% Syringe 12.5 gm, 25 mL, Route: IVP, Drug Form: INJ, Dosing Weight 155.455, kg, PRN, PRN Blood Glucose Results, Start date: 04/21/18 12:31:00 VERTICAL PUNCH OPERATOR, Duration: 30 day, Stop date: 05/21/18 12:30:00 VERTICAL PUNCH OPERATOR Start Date: 04/21/18 Stop Date: 04/23/18 Status: DiscontinuedDextrose 50% Syringe 25 gm, 50 mL, Route: IVP, Drug Form: INJ, Dosing Weight 155.455, kg, PRN, PRN Blood Glucose Results,Start date: 04/21/18 12:31:00 VERTICAL PUNCH OPERATOR, Duration: 30 day, Stop date: 05/21/18 12:30:00 VERTICAL PUNCH OPERATOR Start Date: 04/21/18 Stop Date: 04/23/18 Status: Discontinueddocusate-senna 50 mg-8.6 mg oral tablet 1 tab, Route: PO, Drug Form: TAB, Dosing Weight 155.455, kg, Daily, Start date: 04/18/18 9:00:00 VERTICAL PUNCH OPERATOR, Duration: 30 day, Stop date: 05/17/18 9:00:00 VERTICAL PUNCH OPERATOR Notes: (Same as Senokot-S) Equiv. to Dayami-Colace. Start Date: 04/18/18 Stop Date: 04/25/18 Status: Discontinuedenoxaparin 40 mg, 0.4 mL, Route: SUB-Q, Drug form: INJ, Q12H, Dosing Weight 155.455, kg, Start date: 04/23/18 21:00:00 VERTICAL PUNCH OPERATOR, Duration: 30 day, Stop date: 05/23/18 4:00: 00 VERTICAL PUNCH OPERATOR Notes: (Same as: Lovenox) Start Date: 04/23/18 Stop Date: 04/25/18 Status: Discontinuedenoxaparin 40 mg, 0.4 mL, Route: SUB-Q, Drug form: INJ, [id number], Dosing Weight 155.455, kg , Start date: 04/21/18 13:00:00 VERTICAL PUNCH OPERATOR, Duration: 30 day, Stop date: 05/20/18 13:00 :00 VERTICAL PUNCH OPERATOR Notes: (Same as: Lovenox) Start Date: 04/21/18 Stop Date: 04/23/18 Status: Discontinuedescitalopram 5 mg, 1 tab, Route: PO, Drug form: TAB, Daily, Dosing Weight 155.455, kg, Start date: 04/18/18 9:00:00 VERTICAL PUNCH OPERATOR, Duration: 30 day, Stop date: 05/17/18 9:00:00 VERTICAL PUNCH OPERATOR Notes: (Same as: Lexapro) Start Date: 04/18/18 Stop Date: 04/25/18 Status: Discontinuedescitalopram 5 mg oral tablet 5 mg=1 tab, PO, Daily, # 30 tab, 0 Refill(s) Start Date: 04/17/18 Status: OrderedFlagyl 500 mg, 1 tab, Route: PO, Drug form: TAB, Q8H, Dosing Weight 155.455, kg, Start date: 04/21/18 8:00:00 VERTICAL PUNCH OPERATOR, Duration: 30 day, Stop date: 05/21/18 0:00:00 VERTICAL PUNCH OPERATOR, ABX Indication: Pneumonia Notes: (Same as: Flagyl) Take with food/ avoid alcohol Start Date: 04/21/18 Stop Date: 04/21/18 Status: DiscontinuedFlagyl 500 mg, 100 mL, Route: IVPB, Drug form: INJ, ABXQ8H, Dosing Weight 155.455, kg, Priority: NOW, Startdate: 04/18/18 17:08:00 VERTICAL PUNCH OPERATOR, Duration: 7 day, Stop date: 9:08:00 VERTICAL PUNCH OPERATOR, ABX Indication: Pneumonia Notes: (Same as: Flagyl) Avoid alcohol. Start Date: 04/18/18 Stop Date: 04/21/18 Status: DiscontinuedglipiZIDE 2.5 mg, 0.5 tab, Route: PO, Drug form: TAB, BID, Dosing Weight 155.455, kg, Start date: 04/17/18 17:00:00 VERTICAL PUNCH OPERATOR, Duration: 30 day, Stop date: 05/17/18 9:00: 00 VERTICAL PUNCH OPERATOR Start Date: 04/17/18 Stop Date: 04/21/18 Status: DiscontinuedglipiZIDE 2.5 mg, PO, BID, 0 Refill(s) Start Date: 04/17/18 Stop Date: 04/17/18 Status: DiscontinuedglipiZIDE 5 mg oral tablet 2.5 mg=0.5 tab, PO, BID Start Date: 04/17/18 Status: Orderedglucagon 1 mg, Route: IM, Drug form: PDR/INJ, PRN, Dosing Weight 155.455, kg, PRN Blood Glucose Results, Start date: 04/17/18 13:17:00 VERTICAL PUNCH OPERATOR, Duration: 30 day, Stop date : 05/17/18 13:16:00 VERTICAL PUNCH OPERATOR Start Date: 04/17/18 Stop Date: 04/25/18 Status: Discontinuedglucagon 1 mg, Route: IM, Drug form: PDR/INJ, PRN, Dosing Weight 155.455, kg, PRN Blood Glucose Results, Start date: 04/21/18 12:31:00 VERTICAL PUNCH OPERATOR, Duration: 30 day, Stop date : 05/21/18 12:30:00 VERTICAL PUNCH OPERATOR Start Date: 04/21/18 Stop Date: 04/23/18 Status: DiscontinuedInsulin regular 5 unit, 0.05 mL, Route: SUB-Q, Drug form: SOLN, TID-Before Meals, Dosing Weight 155.455, kg, PRN Blood Glucose Results, Start date: 04/21/18 12:31:00 VERTICAL PUNCH OPERATOR, Duration: 30 day, Stop date: 05/21/18 12:30:00CST Notes: (Same as: Humulin R) Roll in palms of hands gently; Do not shake vigorously. "single patientuse only"(Restricted to patients requiring a dose &gt ; 60 units)WASTE: F/P - Black; E - Municipal Trash Bin Stable for 28 days at room temperatureExpires in days from Date Start Date: 04/21/18 Stop Date: 04/25/18 Status: DiscontinuedInsulin regular 3 unit, 0.03 mL, Route: SUB-Q, Drug form: SOLN, TID-Before Meals, Dosing Weight 155.455, kg, PRN Blood Glucose Results, Start date: 04/21/18 12:31:00 VERTICAL PUNCH OPERATOR, Duration: 30 day, Stop date: 05/21/18 12:30:00CST Notes: (Same as: Humulin R) Roll in palms of hands gently; Do not shake vigorously. "single patientuse only"(Restricted to patients requiring a dose &gt ; 60 units)WASTE: F/P - Black; E - Municipal Trash Bin Stable for 28 days at room temperatureExpires in days from Date Start Date: 04/21/18 Stop Date: 04/25/18 Status: DiscontinuedInsulin regular 4 unit, 0.04 mL, Route: SUB-Q, Drug form: SOLN, TID-Before Meals, Dosing Weight 155.455, kg, PRN Blood Glucose Results, Start date: 04/21/18 12:31:00 VERTICAL PUNCH OPERATOR, Duration: 30 day, Stop date: 05/21/18 12:30:00CST Notes: (Same as: Humulin R) Roll in palms of hands gently; Do not shake vigorously. "single patientuse only"(Restricted to patients requiring a dose &gt ; 60 units)WASTE: F/P - Black; E - Municipal Trash Bin Stable for 28 days at room temperatureExpires in days from Date Start Date: 04/21/18 Stop Date: 04/25/18 Status: DiscontinuedInsulin regular 1 unit, 0.01 mL, Route: SUB-Q, Drug form: SOLN, TID-Before Meals, Dosing Weight 155.455, kg, PRN Blood Glucose Results, Start date: 04/21/18 12:31:00 VERTICAL PUNCH OPERATOR, Duration: 30 day, Stop date: 05/21/18 12:30:00CST Notes: (Same as: Humulin R) Roll in palms of hands gently; Do not shake vigorously. "single patientuse only"(Restricted to patients requiring a dose &gt ; 60 units)WASTE: F/P - Black; E - Municipal Trash Bin Stable for 28 days at room temperatureExpires in days from Date Start Date: 04/21/18 Stop Date: 04/25/18 Status: DiscontinuedInsulin regular 2 unit, 0.02 mL, Route: SUB-Q, Drug form: SOLN, TID-Before Meals, Dosing Weight 155.455, kg, PRN Blood Glucose Results, Start date: 04/21/18 12:31:00 VERTICAL PUNCH OPERATOR, Duration: 30 day, Stop date: 05/21/18 12:30:00CST Notes: (Same as: Humulin R) Roll in palms of hands gently; Do not shake vigorously. "single patientuse only"(Restricted to patients requiring a dose &gt ; 60 units)WASTE: F/P - Black; E - Municipal Trash Bin Stable for 28 days at room temperatureExpires in days from Date Start Date: 04/21/18 Stop Date: 04/25/18 Status: DiscontinuedK-Dur 20 40 mEq, 2 tab, Route: PO, Drug form: ERTAB, Daily, Dosing Weight 155.455, kg, Priority: NOW, Start date: 04/24/18 15:51:00 VERTICAL PUNCH OPERATOR, Duration: 2 doses or times, Stop date: 04/25/18 9:00:00 VERTICAL PUNCH OPERATOR Notes: (Same as: K-Dur 20)"Do Not Crush" Give with food and full glass of waterFor patients unable to swallow tablet, dissolve in one half glass of water. Allow about 2 minutes for the tablets to disintegrate. Stir before giving to prepare slurry and administer.Please exclude Patients with feedingtube less than 14 [place] (Dobhoff, J-tube etc) and pediatric and patients. Start Date: 04/24/18 Stop Date: 04/25/18 Status: Completedlevothyroxine 150 microgram, 1 tab, Route: PO, Drug form: TAB, [id number], Dosing Weight 155.455, kg, Start date: 04/18/18 6:30:00 VERTICAL PUNCH OPERATOR, Duration: 30 day, Stop date: 05/17/18 6:30 :00 VERTICAL PUNCH OPERATOR Notes: Take 1 hour before or 2 hours after meal; Enteral feeds may interefere with the absorption ofthis medication. (Same as: Levothroid) Start Date: 04/18/18 Stop Date: 04/25/18 Status: Discontinuedlevothyroxine 150 mcg (0.15 mg) oral tablet 150 microgram=1 tab, PO, Daily, # 30 tab, 0 Refill(s) Start Date: 04/17/18 Status: Orderedlosartan 25 mg, 1 tab, Route: PO, Drug form: TAB, Daily, Dosing Weight 155.455, kg, Start date: 04/18/18 9:00:00 VERTICAL PUNCH OPERATOR, Duration: 30 day, Stop date: 05/17/18 9:00:00 VERTICAL PUNCH OPERATOR Notes: (Same as: Zahra) Start Date: 04/18/18 Stop Date: 04/19/18 Status: Discontinuedlosartan 25 mg, 1 tab, Route: PO, Drug form: TAB, Daily, Dosing Weight 155.455, kg, Start date: 04/23/18 9:00:00 VERTICAL PUNCH OPERATOR, Duration: 30 day, Stop date: 05/22/18 9:00:00 VERTICAL PUNCH OPERATOR Notes: (Same as: Zahra) Start Date: 04/23/18 Stop Date: 04/24/18 Status: Discontinuedlosartan 50 mg, 1 tab, Route: PO, Drug form: TAB, Daily, Dosing Weight 155.455, kg, Start date: 04/20/18 9:00:00 VERTICAL PUNCH OPERATOR, Duration: 30 day, Stop date: 05/19/18 9:00:00 VERTICAL PUNCH OPERATOR Notes: (Same as: Zahra) Start Date: 04/20/18 Stop Date: 04/22/18 Status: Discontinuedlosartan 25 mg oral tablet 25 mg=1 tab, PO, Daily, # 30 tab, 0 Refill(s) Start Date: 04/17/18 Stop Date: 04/25/18 Status: DiscontinuedLovenox 150 mg, 1 mL, Route: SUB-Q, Drug form: INJ, [id number], Dosing Weight 155.455, kg , Start date: 04/17/18 17:00:00 VERTICAL PUNCH OPERATOR, Duration: 30 day, Stop date: 05/17/18 5:00: 00 VERTICAL PUNCH OPERATOR Notes: Nurse to ensure documentation of patient education per anticoagulation policy. (Same as: Lovenox) Start Date: 04/17/18 Stop Date: 04/19/18 Status: Voided With Resultsmagnesium oxide 800 mg, 2 tab, Route: PO, Drug form: TAB, Daily, Dosing Weight 155.455, kg, Priority: NOW, Start date: 04/24/18 15:51:00 VERTICAL PUNCH OPERATOR, Duration: 1 doses or times, Stop date: 04/24/18 15:51:00 VERTICAL PUNCH OPERATOR Notes: (Same as: Mag-Ox 400)Magnesium oxide [id number] elemental magnesiumDose= ____mg magnesium oxide (___mg elemental magnesium) Start Date: 04/24/18 Stop Date: 04/24/18 Status: Completedmagnesium oxide 800 mg, 2 tab, Route: PO, Drug form: TAB, PRN, Dosing Weight 155.455, kg, PRN Abnormal Lab Result, For NON-ICU Patients Only., Start date: 04/18/18 17:54:00 VERTICAL PUNCH OPERATOR, Duration: 30 day, Stop date: 05/18/18 17:53:00 VERTICAL PUNCH OPERATOR Notes: (Same as: Mag-Ox 400)Magnesium oxide 258mm=824nr elemental magnesiumDose= ____mg magnesium oxide (___mg elemental magnesium) Start Date: 04/18/18 Stop Date: 04/22/18 Status: Discontinuedmagnesium sulfate 1 gm, 100 mL, Route: IVPB, Drug form: INJ, PRN, Dosing Weight 155.455, kg, PRN Abnormal Lab Result, For NON-ICU Patients Only., Start date: 04/18/18 17:54:00 VERTICAL PUNCH OPERATOR, Duration: 30 day, Stop date: 05/18/18 17:53:00 VERTICAL PUNCH OPERATOR Notes: WASTE: F/P - Sink; E - Municipal Trash Bin Start Date: 04/18/18 Stop Date: 04/22/18 Status: Discontinuedmagnesium sulfate 2 gm, 50 mL, Route: IVPB, Drug form: INJ, PRN, Dosing Weight 155.455, kg, PRN Abnormal Lab Result, For NON-ICU Patients Only., Start date: 04/18/18 17:54:00 VERTICAL PUNCH OPERATOR, Duration: 30 day, Stop date: 05/18/18 17:53:00 VERTICAL PUNCH OPERATOR Notes: WASTE: F/P - Sink; E - Municipal Trash Bin Start Date: 04/18/18 Stop Date: 04/22/18 Status: Discontinuedmelatonin 3 mg, 1 tab, Route: PO, Drug form: TAB, Bedtime, Dosing Weight 155.455, kg, PRN Insomnia, Start date: 04/17/18 13:17:00 VERTICAL PUNCH OPERATOR, Duration: 30 day, Stop date: 13:16:00 VERTICAL PUNCH OPERATOR Notes: (Same as: Melatonin) Start Date: 04/17/18 Stop Date: 04/25/18 Status: Discontinuedmorphine Sulfate 2 mg, 0.5 mL, Route: IVP, Drug form: SOLN, Q4H, Dosing Weight 155.455, kg, PRN Pain Score 7-10, Start date: 04/17/18 16:10:00 VERTICAL PUNCH OPERATOR, Duration: 30 day, Stop date : 05/17/18 16:09:00 VERTICAL PUNCH OPERATOR Notes: (Same as:MORPhine Sulfate) Start Date: 04/17/18 Stop Date: 04/18/18 Status: Discontinuedmorphine Sulfate 2 mg, 0.5 mL, Route: IVP, Drug form: SOLN, ONCE, Dosing Weight 155.455, kg, Start date: 04/17/18 13:35:00 VERTICAL PUNCH OPERATOR, Stop date: 04/17/18 13:35:00 VERTICAL PUNCH OPERATOR Notes: (Same as:MORPhine Sulfate) Start Date: 04/17/18 Stop Date: 04/17/18 Status: CompletedNorco 5/325 oral tablet 1 tab, Route: PO, Drug Form: TAB, Dosing Weight 155.455, kg, Q6H, PRN Pain Score 6-10, Start date: 04/17/18 16:10:00 VERTICAL PUNCH OPERATOR, Duration: 30 day, Stop date: 16:09:00 VERTICAL PUNCH OPERATOR Notes: (Same as: [place] 325/5) Do not exceed 4gm/day of acetaminophen. Start Date: 04/17/18 Stop Date: 04/22/18 Status: Discontinuednormal saline 0.9% IV 1,000 mL 1,000 mL, Rate: 75 ml/hr, Infuse over: 13.3 hr, Route: IV, Dosing Weight 155.455 kg, Total Volume: 1,000, Start date: 04/17/18 13:27:00 VERTICAL PUNCH OPERATOR, Duration: 30 day, Stop date: 05/17/18 13:26:00 VERTICAL PUNCH OPERATOR, 2.86, m2 Start Date: 04/17/18 Stop Date: 04/18/18 Status: Discontinuedomeprazole 40 mg oral delayed release capsule 40 mg=1 cap, PO, Daily, # 30 cap, 0 Refill(s) Start Date: 04/25/18 Status: OrderedOmnipaque 350mg/ml 100 mL, Route: IVP, Drug Form: SOLN, Dosing Weight 155.455, kg, ONCALL, STAT, Start date: 04/22/18 21:38:00 VERTICAL PUNCH OPERATOR, Duration: 1 doses or times, Dose=2.2ml/kg, Max [id number] -- "To be infused by Radiology Staff ONLY" Start Date: 04/22/18 Stop Date: 04/22/18 Status: Completedpantoprazole 80 mg, Route: IV, Drug form: INJ, ONCE, Dosing Weight 155.455, kg, Start date: 04/20/18 8:57:00 VERTICAL PUNCH OPERATOR,Stop date: 04/20/18 8:57:00 VERTICAL PUNCH OPERATOR, > 40 kg; loading dose; Pediatric Dosing Start Date: 04/20/18 Stop Date: 04/20/18 Status: Deletedpantoprazole additive 24 mg [8 mg/hr] + NS 30 mL 30 mL, Rate: 10 ml/hr, Infuse over: 3 hr, Route: IV, Dosing Weight 155.455 kg, Total Volume: 30 mL, Start date: 04/20/18 8:57:00 VERTICAL PUNCH OPERATOR, Duration: 72 hr, Stop date: 04/23/18 8:56:00 VERTICAL PUNCH OPERATOR, 2.86, m2 Start Date: 04/20/18 Stop Date: 04/20/18 Status: DeletedPhenergan 12.5 mg, 1 tab, Route: PO, Drug form: TAB, Q4H, Dosing Weight 155.455, kg, PRN Nausea & Vomiting, Start date: 04/17/18 16:12:00 VERTICAL PUNCH OPERATOR, Duration: 30 day, Stop date: 05/17/18 16:11:00 VERTICAL PUNCH OPERATOR Notes: (Same as: Phenergan) Start Date: 04/17/18 Stop Date: 04/25/18 Status: Discontinuedpolyethylene glycol 3350 17 gm, 1 pkt, Route: PO, Drug form: PWDR, Daily, Dosing Weight 155.455, kg, Start date: 04/18/18 9:00:00 VERTICAL PUNCH OPERATOR, Duration: 30 day, Stop date: 05/17/18 9:00:00 VERTICAL PUNCH OPERATOR Notes: Dissolve in 8 oz of water or juice.(Same as: Miralax) Start Date: 04/18/18 Stop Date: 04/22/18 Status: Discontinuedpotassium chloride 20 mEq, 100 mL, Route: IV, Drug form: INJ, ONCE, Dosing Weight 155.455, kg, Start date: 04/22/18 7:19:00 VERTICAL PUNCH OPERATOR, Stop date: 04/22/18 7:19:00 VERTICAL PUNCH OPERATOR Notes: (Same as: KCL) Infuse no faster than 10 mEq/hr if given peripherally. Start Date: 04/22/18 Stop Date: 04/22/18 Status: Completedpotassium chloride 20 mEq, 100 mL, Route: IV, Drug form: INJ, ONCE, Dosing Weight 155.455, kg, Start date: 04/23/18 8:41:00 VERTICAL PUNCH OPERATOR, Stop date: 04/23/18 8:41:00 VERTICAL PUNCH OPERATOR Notes: (Same as: KCL) Infuse no faster than 10 mEq/hr if given peripherally. Start Date: 04/23/18 Stop Date: 04/23/18 Status: Completedpotassium chloride 20 mEq, 1 tab, Route: PO, Drug form: ERTAB, PRN, Dosing Weight 155.455, kg, PRN Abnormal Lab Result,For NON-ICU Patients Only, Start date: 04/18/18 17:54:00 VERTICAL PUNCH OPERATOR , Duration: 30 day, Stop date: 05/18/18 17:53:00 VERTICAL PUNCH OPERATOR Notes: (Same as: K-Dur 20)"Do Not Crush" Give with food and full glass of waterFor patients unable to swallow tablet, dissolve in one half glass of water. Allow about 2 minutes for the tablets to disintegrate. Stir before giving to prepare slurry and administer.Please exclude Patients with feedingtube less than 14 [place] (Dobhoff, J-tube etc) and pediatric and patients. Start Date: 04/18/18 Stop Date: 04/22/18 Status: Discontinuedpotassium chloride 10 mEq, 50 mL, Route: IVPB, Drug form: INJ, PRN, Dosing Weight 155.455, kg, PRN Abnormal Lab Result,For NON-ICU Patients Only, Start date: 04/18/18 17:54:00 VERTICAL PUNCH OPERATOR , Duration: 30 day, Stop date: 05/18/18 17:53:00 VERTICAL PUNCH OPERATOR Notes: (Same as: KCL) Infuse over 2 hours. Start Date: 04/18/18 Stop Date: 04/22/18 Status: Discontinuedpotassium chloride 20 mEq, 15 mL, Route: NJ, Drug form: LIQ, PRN, Dosing Weight 155.455, kg, PRN Abnormal Lab Result, For NON-ICU Patients Only, Start date: 04/18/18 17:54:00 VERTICAL PUNCH OPERATOR, Duration: 30 day, Stop date: 05/18/18 17:53:00 VERTICAL PUNCH OPERATOR Notes: (Same as: Potassium Chloride) Start Date: 04/18/18 Stop Date: 04/22/18 Status: Discontinuedpotassium chloride 40 mEq, 2 tab, Route: PO, Drug form: ERTAB, BID, Dosing Weight 155.455, kg, Start date: 04/21/18 7:49:00 VERTICAL PUNCH OPERATOR, Duration: 30 day, Stop date: 05/20/18 17:00: 00 VERTICAL PUNCH OPERATOR Notes: (Same as: K-Dur 20)"Do Not Crush" Give with food and full glass of waterFor patients unable to swallow tablet, dissolve in one half glass of water. Allow about 2 minutes for the tablets to disintegrate. Stir before giving to prepare slurry and administer.Please exclude Patients with feedingtube less than 14 [place] (Dobhoff, J-tube etc) and pediatric and patients. Start Date: 04/21/18 Stop Date: 04/22/18 Status: Discontinuedpotassium chloride 40 mEq, 2 tab, Route: PO, Drug form: ERTAB, ONCE, Dosing Weight 155.455, kg, Priority: NOW, Start date: 04/18/18 17:55:00 VERTICAL PUNCH OPERATOR, Stop date: 04/18/18 17:55:00 VERTICAL PUNCH OPERATOR Notes: (Same as: K-Dur 20)"Do Not Crush" Give with food and full glass of waterFor patients unable to swallow tablet, dissolve in one half glass of water. Allow about 2 minutes for the tablets to disintegrate. Stir before giving to prepare slurry and administer.Please exclude Patients with feedingtube less than 14 [place] (Dobhoff, J-tube etc) and pediatric and patients. Start Date: 04/18/18 Stop Date: 04/18/18 Status: Completedpotassium chloride 20 mEq oral tablet, extended release 20 mEq, 1 tab, Route: PO, Drug form: ERTAB, ONCE, Dosing Weight 155.455, kg, Start date: 04/23/18 8:41:00 VERTICAL PUNCH OPERATOR, Stop date: 04/23/18 8:41:00 VERTICAL PUNCH OPERATOR Notes: (Same as: K-Dur 20)"Do Not Crush" Give with food and full glass of waterFor patients unable to swallow tablet, dissolve in one half glass of water. Allow about 2 minutes for the tablets to disintegrate. Stir before giving to prepare slurry and administer.Please exclude Patients with feedingtube less than 14 [place] (Dobhoff, J-tube etc) and pediatric and patients. Start Date: 04/23/18 Stop Date: 04/23/18 Status: Completedpotassium chloride 20 mEq oral tablet, extended release 20 mEq, 1 tab, Route: PO, Drug form: ERTAB, BID, Dosing Weight 155.455, kg, Start date: 04/22/18 9:00:00 VERTICAL PUNCH OPERATOR, Duration: 30 day, Stop date: 05/21/18 17:00: 00 VERTICAL PUNCH OPERATOR Notes: (Same as: K-Dur 20)"Do Not Crush" Give with food and full glass of waterFor patients unable to swallow tablet, dissolve in one half glass of water. Allow about 2 minutes for the tablets to disintegrate. Stir before giving to prepare slurry and administer.Please exclude Patients with feedingtube less than 14 [place] (Dobhoff, J-tube etc) and pediatric and patients. Start Date: 04/22/18 Stop Date: 04/22/18 Status: Discontinuedpotassium phosphate 30 mmol, Route: IVPB, ONCE, Dosing Weight 155.455, kg, Start date: 04/21/18 7:46 :00 VERTICAL PUNCH OPERATOR, Stop date: 04/21/18 7:46:00 VERTICAL PUNCH OPERATOR Start Date: 04/21/18 Stop Date: 04/21/18 Status: Deletedpotassium phosphate + Sodium Chloride 0.9% IV 250 mL 21 mmol, 7 mL, Route: IV, ONCE, Dosing Weight 155.455, kg, Priority: STAT, Start date: 04/20/18 7:15:00 VERTICAL PUNCH OPERATOR, Stop date: 04/20/18 7:15:00 VERTICAL PUNCH OPERATOR Notes: (Same as: K Phosphate.)Do not infuse phosphorous concurrently in the same line as TPN or IVF that contains calcium. For double lumen central lines, phosphorous may be infused in a separate lumenfrom TPN. 1 mMol phoshate has 1.47 mEq potassium Infuse over 4 hours Start Date: 04/20/18 Stop Date: 04/20/18 Status: Completedpotassium phosphate + Sodium Chloride 0.9% IV 250 mL 15 mmol, 5 mL, Route: IVPB, ONCE, Dosing Weight 155.455, kg, Start date: 12:02:00 VERTICAL PUNCH OPERATOR, Stopdate: 04/22/18 12:02:00 VERTICAL PUNCH OPERATOR Notes: (Same as: K Phosphate.)Do not infuse phosphorous concurrently in the same line as TPN or IVF that contains calcium. For double lumen central lines, phosphorous may be infused in a separate lumenfrom TPN. 1 mMol phoshate has 1.47 mEq potassium Infuse over 4 hours Start Date: 04/22/18 Stop Date: 04/22/18 Status: Completedpotassium phosphate + Sodium Chloride 0.9% IV 250 mL 21 mmol, 7 mL, Route: IVPB, ONCE, Dosing Weight 155.455, kg, Start date: 17:15:00 VERTICAL PUNCH OPERATOR, Stopdate: 04/20/18 17:15:00 VERTICAL PUNCH OPERATOR Notes: (Same as: K Phosphate.)Do not infuse phosphorous concurrently in the same line as TPN or IVF that contains calcium. For double lumen central lines, phosphorous may be infused in a separate lumenfrom TPN. 1 mMol phoshate has 1.47 mEq potassium Infuse over 4 hours Start Date: 04/20/18 Stop Date: 04/20/18 Status: Completedpotassium phosphate + Sodium Chloride 0.9% IV 250 mL 30 mmol, 10 mL, Route: IVPB, PRN, Dosing Weight 155.455, kg, PRN Abnormal Lab Result, For NON-ICU Patients Only., Start date: 04/18/18 17:54:00 VERTICAL PUNCH OPERATOR, Duration : 30 day, Stop date: 05/18/18 17:53:00 VERTICAL PUNCH OPERATOR Notes: (Same as: K Phosphate.)Do not infuse phosphorous concurrently in the same line as TPN or IVF that contains calcium. For double lumen central lines, phosphorous may be infused in a separate lumenfrom TPN. 1 mMol phoshate has 1.47 mEq potassium Infuse over 4 hours Start Date: 04/18/18 Stop Date: 04/22/18 Status: Discontinuedpotassium phosphate + Sodium Chloride 0.9% IV 250 mL 15 mmol, 5 mL, Route: IVPB, PRN, Dosing Weight 155.455, kg, PRN Abnormal Lab Result, For NON-ICU Patients Only., Start date: 04/18/18 17:54:00 VERTICAL PUNCH OPERATOR, Duration : 30 day, Stop date: 05/18/18 17:53:00 VERTICAL PUNCH OPERATOR Notes: (Same as: K Phosphate.)Do not infuse phosphorous concurrently in the same line as TPN or IVF that contains calcium. For double lumen central lines, phosphorous may be infused in a separate lumenfrom TPN. 1 mMol phoshate has 1.47 mEq potassium Infuse over 4 hours Start Date: 04/18/18 Stop Date: 04/22/18 Status: Discontinuedpotassium phosphate-sodium phosphate 250 mg-280 mg-160 mg oral powder for reconstitution 2 pkt, Route: PO, Drug Form: PDR/REC, Dosing Weight 155.455, kg, ONCE, Start date: 04/19/18 13:55:00CST, Stop date: 04/19/18 13:55:00 VERTICAL PUNCH OPERATOR Notes: (Same as: Phos-NaK) Each 1.5 gm pkt has 250mg phosphorous. Mix w/2.5oz water and stir. Start Date: 04/19/18 Stop Date: 04/19/18 Status: Discontinuedpotassium phosphate-sodium phosphate 250 mg-280 mg-160 mg oral powder for reconstitution 2 pkt, Route: PO, Drug Form: PDR/REC, Dosing Weight 155.455, kg, PRN, PRN Abnormal Lab Result, For NON-ICU Patients Only, Start date: 04/18/18 17:54:00 VERTICAL PUNCH OPERATOR, Duration: 30 day, Stop date: 05/18/18 17:53:00 VERTICAL PUNCH OPERATOR Notes: (Same as: Phos-NaK) Each 1.5 gm pkt has 250mg phosphorous. Mix w/2.5oz water and stir. Start Date: 04/18/18 Stop Date: 04/22/18 Status: Discontinuedpravastatin 40 mg, 2 tab, Route: PO, Drug form: TAB, Bedtime, Dosing Weight 155.455, kg, Start date: 04/17/18 21:00:00 VERTICAL PUNCH OPERATOR, Duration: 30 day, Stop date: 05/16/18 21:00: 00 VERTICAL PUNCH OPERATOR Notes: (Same as: Pravachol) Start Date: 04/17/18 Stop Date: 04/20/18 Status: Discontinuedpravastatin 40 mg oral tablet 40 mg=1 tab, PO, Bedtime, # 30 tab, 0 Refill(s) Start Date: 04/17/18 Stop Date: 04/21/18 Status: DiscontinuedProtonix 40 mg, Route: IV, Drug form: INJ, Q12H, Dosing Weight 155.455, kg, Start date: 04/21/18 9:00:00 VERTICAL PUNCH OPERATOR,Duration: 30 day, Stop date: 05/20/18 21:00:00 VERTICAL PUNCH OPERATOR Notes: For IV push reconstitute with 10 ml 0.9% sodium chloride and push over 2 minutes. (Same as: Protonix) Start Date: 04/21/18 Stop Date: 04/25/18 Status: DiscontinuedProtonix + Sodium Chloride 0.9% IV 50 mL 80 mg, Route: IVPB, ONCE, Start date: 04/20/18 9:30:00 VERTICAL PUNCH OPERATOR, Stop date: 04/20/18 9:30:00 VERTICAL PUNCH OPERATOR Start Date: 04/20/18 Stop Date: 04/20/18 Status: CompletedProtonix 80 mg + Sodium Chloride 0.9% IV 100 mL 100 mL, Rate: 10 ml/hr, Infuse over: 10 hr, Route: IV, Dosing Weight 155.455 kg , Total Volume: 100, Start date: 04/20/18 10:00:00 VERTICAL PUNCH OPERATOR, Duration: 72 hr, Stop date: 04/23/18 9:59:00 VERTICAL PUNCH OPERATOR, 2.86, m2 Start Date: 04/20/18 Stop Date: 04/21/18 Status: DiscontinuedSodium Chloride 0.9% IV 250 mL + potassium phosphate 15 mmol 250 mL, Rate: 62.5 ml/hr, Infuse over: 4.1 hr, Route: IV, Dosing Weight 155.455 kg, Total Volume: 255, Start date: 04/21/18 6:13:00 VERTICAL PUNCH OPERATOR, Stop date: 04/21/18 6: 15:00 VERTICAL PUNCH OPERATOR, 2.86, m2 Start Date: 04/21/18 Stop Date: 04/21/18 Status: Completedsodium phosphate + Sodium Chloride 0.9% IV 250 mL 45 mmol, 15 mL, Route: IVPB, ONCE, Dosing Weight 155.455, kg, Start date: 4:41:00 VERTICAL PUNCH OPERATOR, Stopdate: 04/19/18 4:41:00 VERTICAL PUNCH OPERATOR, Phosphate level < 1.5 mg/dL Notes: Infuse over 4 hour. Do not infuse phosphorous concurrently in the same line as TPN or IVF that contains calcium. For double lumen central lines, phosphorous may be infused in a separate lumen from TPN. Start Date: 04/19/18 Stop Date: 04/19/18 Status: Completedsodium phosphate + Sodium Chloride 0.9% IV 250 mL 30 mmol, 10 mL, Route: IVPB, PRN, Dosing Weight 155.455, kg, PRN Abnormal Lab Result, For NON-ICU Patients Only., Start date: 04/18/18 17:54:00 VERTICAL PUNCH OPERATOR, Duration : 30 day, Stop date: 05/18/18 17:53:00 VERTICAL PUNCH OPERATOR Notes: Infuse over 4 hour. Do not infuse phosphorous concurrently in the same line as TPN or IVF that contains calcium. For double lumen central lines, phosphorous may be infused in a separate lumen from TPN. Start Date: 04/18/18 Stop Date: 04/22/18 Status: Discontinuedsodium phosphate + Sodium Chloride 0.9% IV 250 mL 15 mmol, 5 mL, Route: IVPB, PRN, Dosing Weight 155.455, kg, PRN Abnormal Lab Result, For NON-ICU Patients Only., Start date: 04/18/18 17:54:00 VERTICAL PUNCH OPERATOR, Duration : 30 day, Stop date: 05/18/18 17:53:00 VERTICAL PUNCH OPERATOR Notes: Infuse over 4 hour. Do not infuse phosphorous concurrently in the same line as TPN or IVF that contains calcium. For double lumen central lines, phosphorous may be infused in a separate lumen from TPN. Start Date: 04/18/18 Stop Date: 04/22/18 Status: Discontinuedsodium phosphate + Sodium Chloride 0.9% IV 250 mL 45 mmol, 15 mL, Route: IVPB, ONCE, Start date: 04/21/18 10:30:00 VERTICAL PUNCH OPERATOR, Stop date : 04/21/18 10:30:00 VERTICAL PUNCH OPERATOR Notes: Do not infuse phosphorous concurrently in the same line as TPN or IVF that contains calcium. For double lumen central lines, phosphorous may be infused in a separate lumen from TPN. Start Date: 04/21/18 Stop Date: 04/21/18 Status: Completedspironolactone 50 mg, 1 tab, Route: PO, Drug form: TAB, Daily, Dosing Weight 155.455, kg, Start date: 04/20/18 9:00:00 VERTICAL PUNCH OPERATOR, Duration: 30 day, Stop date: 05/19/18 9:00:00 VERTICAL PUNCH OPERATOR Notes: (Same As: Aldactone) Start Date: 04/20/18 Stop Date: 04/21/18 Status: Discontinuedsugammadex 500 mg, 5 mL, Route: IV, Drug form: REJI MARTÍNEZ, Priority: NOW, Start date: 13:12:00 VERTICAL PUNCH OPERATOR, Duration: 1 doses or times, Stop date: 04/18/18 13:17:00 VERTICAL PUNCH OPERATOR Notes: (Same as: Bridion) Start Date: 04/18/18 Stop Date: 04/25/18 Status: Discontinuedtramadol 50 mg, 1 tab, Route: PO, Drug form: TAB, Q4H, Dosing Weight 155.455, kg, PRN Pain Score 1-5, Start date: 04/20/18 10:47:00 VERTICAL PUNCH OPERATOR, Duration: 30 day, Stop date: 05/20/18 10:46:00 VERTICAL PUNCH OPERATOR Notes: Not to exceed 400mg/day. (Same As: Ultram) Start Date: 04/20/18 Stop Date: 04/25/18 Status: Discontinuedvancomycin 2.5 gm, Route: IV, Q12H, Dosing Weight 155.455, kg, Start date: 04/19/18 11:50: 00 VERTICAL PUNCH OPERATOR, Duration: 30 day, Stop date: 05/19/18 9:00:00 VERTICAL PUNCH OPERATOR, ABX Indication: Pneumonia Start Date: 04/19/18 Stop Date: 04/19/18 Status: Deletedvancomycin + Sodium Chloride 0.9% IV 250 mL 1.5 gm, Route: IVPB, [id number], Start date: 04/19/18 21:00:00 VERTICAL PUNCH OPERATOR, Duration: 30 day , Stop date: 05/19/18 13:00:00 VERTICAL PUNCH OPERATOR, ABX Indication: Pneumonia Notes: TIME CRITICAL MEDICATION(Same As: Vancocin)Infusion rate< 1000 mg: infuse over 1 [id number] - 1500 mg: infuse over 1.5 hoursVancomycin FOR IV SET [id number] - 2000 mg: infuse over 2 hours>2001 mg: infuse over 2.5 hoursFor adult patients only: Round to nearest 250 mg per Medical Staff approval MEDICATION WASTE Product Size: 1000 mgProduct Wasted: ___ mg Start Date: 04/19/18 Stop Date: 04/20/18 Status: Discontinuedvancomycin + Sodium Chloride 0.9% IV 250 mL 1.25 gm, Route: IVPB, [id number], Start date: 04/20/18 23:00:00 VERTICAL PUNCH OPERATOR, Stop date: 15:00:00 VERTICAL PUNCH OPERATOR, ABX Indication: Pneumonia Notes: TIME CRITICAL MEDICATION(Same As: Vancocin)Infusion rate< 1000 mg: infuse over 1 [id number] - 1500 mg: infuse over 1.5 hoursVancomycin FOR IV SET ONLY1501 - 2000 mg: infuse over 2 hours>2001 mg: infuse over 2.5 hoursFor adult patients only: Round to nearest 250 mg per Medical Staff approval MEDICATION WASTE Product Size: 1000 mgProduct Wasted: ___ mg Start Date: 04/20/18 Stop Date: 04/21/18 Status: Discontinuedvancomycin + Sodium Chloride 0.9% IV 500 mL 2,500 mg, Route: IVPB, ONCE, Priority: STAT, Start date: 04/19/18 12:20:00 VERTICAL PUNCH OPERATOR, Stop date: 04/19/18 12:20:00 VERTICAL PUNCH OPERATOR, ABX Indication: Pneumonia Notes: TIME CRITICAL MEDICATION(Same As: Vancocin)Infusion rate< 1000 mg: infuse over 1 [id number] - 1500 mg: infuse over 1.5 [id number] - 2000 mg: infuse over 2 hours> 2001 mg: infuse over 2.5 hoursFor adult patients only: Round to nearest 250 mg per Medical Staff approval MEDICATION WASTE Product Size: 1000 mgProduct Wasted: ___ mg Start Date: 04/19/18 Stop Date: 04/19/18 Status: CompletedWellbutrin SR 100 mg, 1 tab, Route: PO, Drug form: ERTAB, Daily, Dosing Weight 155.455, kg, Start date: 04/24/18 12:30:00 VERTICAL PUNCH OPERATOR, Duration: 30 day, Stop date: 05/24/18 9:00: 00 VERTICAL PUNCH OPERATOR Notes: Do not crush or chew. (Same As: Wellbutrin SR) Start Date: 04/24/18 Stop Date: 04/25/18 Status: DiscontinuedXarelto 20 mg, 1 tab, Route: PO, Drug form: TAB, QPM, Dosing Weight 155.455, kg, Start date: 04/19/18 17:00:00 VERTICAL PUNCH OPERATOR, Duration: 30 day, Stop date: 05/18/18 17:00:00 VERTICAL PUNCH OPERATOR Notes: (Same as: Xarelto)Administer with food Start Date: 04/19/18 Stop Date: 04/25/18 Status: DiscontinuedXarelto 20 mg, Route: PO, Drug form: TAB, QPM, Dosing Weight 155.455, kg, Start date: 17:00:00 VERTICAL PUNCH OPERATOR,Duration: 30 day, Stop date: 05/16/18 17:00:00 VERTICAL PUNCH OPERATOR Start Date: 04/17/18 Stop Date: 04/18/18 Status: DiscontinuedXarelto 20 mg oral tablet 20 mg=1 tab, PO, QPM, # 30 tab, 3 Refill(s) Start Date: 04/17/18 Stop Date: 04/25/18 Status: DiscontinuedZofran 4 mg, 2 mL, Route: IVP, Drug form: INJ, ONCE, Dosing Weight 155.455, kg, Start date: 04/17/18 14:18:00 VERTICAL PUNCH OPERATOR, Stop date: 04/17/18 14:18:00 VERTICAL PUNCH OPERATOR Notes: (Same as: Zofran) MEDICATION WASTE Product Size: 4 mgProduct Wasted: ___ mg Start Date: 04/17/18 Stop Date: 04/17/18 Status: Completed Results BLOOD BANK RESULTS Most recent to oldest [Reference Range]: 1 2 3 ABO/Rh A POS *Unknown* (04/17/18 2:34 PM) Antibody Scrn Negative (04/17/18 2:34 PM) ELECTROLYTES Most recent to oldest 1 2 3 [Reference Range]: Sodium Lvl [135-145 mEq/L] 138 mEq/L 138 mEq/L 135 mEq/L (04/25/18 3:36 AM) (04/24/18 2:03 AM) (04/23/18 6:27 AM) Potassium Lvl [3.5-5.1 4.1 mEq/L 3.6 mEq/L 3.4 mEq/L mEq/L] (04/25/18 3:36 AM) (04/24/18 2:03 AM) *LOW* (04/23/18 6:27 AM) Chloride Lvl [95-109 mEq/L] 105 mEq/L 105 mEq/L 102 mEq/L (04/25/18 3:36 AM) (04/24/18 2:03 AM) (04/23/18 6:27 AM) CO2 [24-32 mEq/L] 24 mEq/L 20 mEq/L 26 mEq/L (04/25/18 3:36 AM) *LOW* (04/23/18 6:27 AM) (04/24/18 2:03 AM) AGAP [10.0-20.0 mEq/L] 13.1 mEq/L 16.6 mEq/L 10.4 mEq/L (04/25/18 3:36 AM) (04/24/18 2:03 AM) (04/23/18 6:27 AM) CHEM PANEL Most recent to oldest 1 2 3 [Reference Range]: Creatinine Lvl [0.50-1.40 1.06 mg/dL 0.98 mg/dL 0.98 mg/dL mg/dL] (04/25/18 3:36 AM) (04/24/18 2:03 AM) (04/23/18 6:27 AM) eGFR 74 mL/min/1.73m2 1 82 mL/min/1.73m2 2 82 mL/min/1.73m2 3 *NA* *NA* *NA* (04/25/18 3:36 AM) (04/24/18 2:03 AM) (04/23/18 6:27 AM) BUN [7-22 mg/dL] 10 mg/dL 11 mg/dL 14 mg/dL (04/25/18 3:36 AM) (04/24/18 2:03 AM) (04/23/18 6:27 AM) B/C Ratio [6-25] 14 (04/17/18 2:34 PM) Glucose Lvl [70-99 mg/dL] 162 mg/dL 144 mg/dL 113 mg/dL *HI* *HI* *HI* (04/25/18 3:36 AM) (04/24/18 2:03 AM) (04/23/18 6:27 AM) Total Protein [6.4-8.4 6.3 g/dL 6.2 g/dL 6.2 g/dL g/dL] *LOW* *LOW* *LOW* (04/22/18 12:28 AM) (04/21/18 4:39 AM) (04/20/18 4:47 AM) Albumin Lvl [3.5-5.0 g/dL] 2.3 g/dL 2.3 g/dL 2.6 g/dL *LOW* *LOW* *LOW* (04/22/18 12:28 AM) (04/21/18 4:39 AM) (04/20/18 4:47 AM) Globulin [2.7-4.2 g/dL] 4.0 g/dL 3.9 g/dL 3.6 g/dL (04/22/18 12:28 AM) (04/21/18 4:39 AM) (04/20/18 4:47 AM) A/G Ratio [0.7-1.6] 0.6 0.6 0.7 *LOW* *LOW* (04/20/18 4:47 AM) (04/22/18 12:28 AM) (04/21/18 4:39 AM) Calcium Lvl [8.5-10.5 7.6 mg/dL 7.4 mg/dL 8.1 mg/dL mg/dL] *LOW* *LOW* *LOW* (04/25/18 3:36 AM) (04/24/18 2:03 AM) (04/23/18 6:27 AM) Phosphorus [2.5-4.5 mg/dL] 3.4 mg/dL 3.1 mg/dL 2.6 mg/dL (04/25/18 3:36 AM) (04/24/18 2:03 AM) (04/23/18 6:27 AM) Magnesium Lvl [1.8-2.4 2.2 mg/dL 2.0 mg/dL 2.3 mg/dL mg/dL] (04/25/18 3:36 AM) (04/24/18 2:03 AM) (04/23/18 6:27 AM) ALT [0-65 unit/L] 35 unit/L 32 unit/L 48 unit/L (04/22/18 12:28 AM) (04/21/18 4:39 AM) (04/20/18 4:47 AM) AST [0-37 unit/L] 38 unit/L 29 unit/L 37 unit/L *HI* (04/21/18 4:39 AM) (04/20/18 4:47 AM) (04/22/18 12:28 AM) Alk Phos [39-136 unit/L] 117 unit/L 79 unit/L 113 unit/L (04/22/18 12:28 AM) (04/21/18 4:39 AM) (04/20/18 4:47 AM) Bili Total [0.2-1.3 mg/dL] 1.2 mg/dL 1.6 mg/dL 2.6 mg/dL (04/22/18 12:28 AM) *HI* *HI* (04/21/18 4:39 AM) (04/20/18 4:47 AM) Bili Direct [0.0-0.3 mg/dL] 0.4 mg/dL 0.6 mg/dL 0.7 mg/dL *HI* *HI* *HI* (04/22/18 12:28 AM) (04/21/18 4:39 AM) (04/20/18 4:47 AM) Bili Indirect [0.0-1.0 0.8 mg/dL 1.0 mg/dL 1.9 mg/dL mg/dL] (04/22/18 12:28 AM) (04/21/18 4:39 AM) *HI* (04/20/18 4:47 AM) Lipase Lvl [73-393 unit/L] 41 unit/L 25739 unit/L *LOW* *HI* (04/19/18 9:06 AM) (04/17/18 2:34 PM) Lactic Acid Lvl [0.5-2.2 1.8 mMol/L mMol/L] (04/19/18 9:06 AM) 1Result Comment: The eGFR is calculated using the CKD-EPI formula. In most young , healthy individualsthe eGFR will be >90 mL/min/1.73m2. The eGFR declines with age. An eGFR of 60-89 may be normal insome populations, particularly the elderly, for whom the CKD-EPI formula has not been extensively validated. Use of the eGFR is not recommended in the following populations: Individuals with unstable creatinine concentrations, including patients and those with serious co-morbid conditions. Patients with extremes in muscle mass or diet. The data above are obtained from the National Kid[employer] Education Program ( [employer]) which additionally recommends that when the eGFR is used in patients with extremes of body mass index for purposesof drug dosing, the eGFR should be multiplied by the estimated BMI.2Result Comment: The eGFR is calculated using the CKD-EPI formula. In most young, healthy individualsthe eGFR will be >90 mL/min/1.73m2. The eGFR declines with age. An eGFR of 60-89 may be normal insome populations, particularly the elderly, for whom the CKD-EPI formula has not been extensively validated. Use of the eGFR is not recommended in the following populations: Individuals with unstable creatinine concentrations, including patients and those with serious co-morbid conditions. Patients with extremes in muscle mass or diet. The data above are obtained from the National Kid[employer] Education Program ( [employer]) which additionally recommends that when the eGFR is used in patients with extremes of body mass index for purposesof drug dosing, the eGFR should be multiplied by the estimated BMI.3Result Comment: The eGFR is calculated using the CKD-EPI formula. In most young, healthy individualsthe eGFR will be >90 mL/min/1.73m2. The eGFR declines with age. An eGFR of 60-89 may be normal insome populations, particularly the elderly, for whom the CKD-EPI formula has not been extensively validated. Use of the eGFR is not recommended in the following populations: Individuals with unstable creatinine concentrations, including patients and those with serious co-morbid conditions. Patients with extremes in muscle mass or diet. The data above are obtained from the National Kid[employer] Education Program ( [employer]) which additionally recommends that when the eGFR is used in patients with extremes of body mass index for purposesof drug dosing, the eGFR should be multiplied by the estimated BMI.CARDIAC ENZYMES Most recent to oldest 1 2 3 [Reference Range]: Troponin-T [0.000-0.100 <0.010 ng/mL <0.010 ng/mL <0.010 ng/mL ng/mL] (04/19/18 9:06 AM) (04/19/18 2:54 AM) (04/18/18 10:29 PM) Troponin-I [0.00-0.40 ng/mL] <0.02 ng/mL 0.02 ng/mL <0.02 ng/mL (04/19/18 2:54 AM) (04/18/18 10:29 PM) (04/18/18 2:17 PM) BNP [<=100 pg/mL] 25 pg/mL (04/17/18 2:34 PM) proBNP [0-125 pg/mL] 274 pg/mL *HI* (04/17/18 2:34 PM) LIPIDS Most recent to oldest [Reference Range]: 1 2 3 CHD Risk [4.00-7.30] 3.40 *LOW* (04/17/18 2:34 PM) Chol [<=199 mg/dL] 146 mg/dL (04/17/18 2:34 PM) Trig [<=149 mg/dL] 114 mg/dL (04/17/18 2:34 PM) HDL [>=61 mg/dL] 43 mg/dL *LOW* (04/17/18 2:34 PM) LDL (Calculated) [<=99 mg/dL] 80 mg/dL (04/17/18 2:34 PM) VLDL 23 *NA* (04/17/18 2:34 PM) SPECIAL CHEMISTRY Most recent to oldest [Reference Range]: 1 2 3 Hgb A1C [<=5.6 %] 7.0 % *HI* (04/19/18 9:07 AM) PARATHYROID PROFILE Most recent to oldest 1 2 3 [Reference Range]: Ca Ion WB [1.05-1.25 mMol/L] 1.05 mMol/L 1.05 mMol/L 1.10 mMol/L (04/25/18 3:36 AM) (04/24/18 2:03 AM) (04/22/18 12:28 AM) Ca Norm WB [1.05-1.25 1.06 mMol/L 1.08 mMol/L 1.08 mMol/L mMol/L] (04/25/18 3:36 AM) (04/24/18 2:03 AM) (04/22/18 12:28 AM) DRUG SCREEN Most recent to oldest [Reference Range]: 1 2 3 U Amph Scr [Negative] Negative *NA* (04/17/18 7:01 PM) U Kristi Scr [Negative] Negative *NA* (04/17/18 7:01 PM) U Benzodiaz Scr [Negative] Negative *NA* (04/17/18 7:01 PM) U Cannab Scr [Negative] Negative *NA* (04/17/18 7:01 PM) U Cocaine Scr [Negative] Negative *NA* (04/17/18 7:01 PM) U Methadone Scr [Negative] Negative *NA* (04/17/18 7:01 PM) U Opiate Scr [Negative] Positive *ABN* (04/17/18 7:01 PM) U Phencyclidine Scr [Negative] Negative *NA* (04/17/18 7:01 PM) U Propoxyph Scr [Negative] Negative *NA* (04/17/18 7:01 PM) UDS Note See Note (04/17/18 7:01 PM) TOXICOLOGY Most recent to oldest [Reference Range]: 1 2 3 Vanco Tr TND 1300 *NA* (04/20/18 12:43 PM) Vanco Tr 21.6 ug/ml *NA* (04/20/18 12:43 PM) HEMATOLOGY Most recent to oldest 1 2 3 [Reference Range]: WBC [3.7-10.4 K/CMM] 15.1 K/CMM 17.1 K/CMM 20.8 K/CMM *HI* *HI* *HI* (04/25/18 3:36 AM) (04/24/18 2:03 AM) (04/23/18 6:27 AM) RBC [4.70-6.10 M/CMM] 3.07 M/CMM 3.18 M/CMM 3.36 M/CMM *LOW* *LOW* *LOW* (04/25/18 3:36 AM) (04/24/18 2:03 AM) (04/23/18 6:27 AM) Hgb [14.0-18.0 g/dL] 9.7 g/dL 10.0 g/dL 10.6 g/dL *LOW* *LOW* *LOW* (04/25/18 3:36 AM) (04/24/18 2:03 AM) (04/23/18 6:27 AM) Hct [42.0-54.0 %] 28.6 % 29.6 % 31.1 % *LOW* *LOW* *LOW* (04/25/18 3:36 AM) (04/24/18 2:03 AM) (04/23/18 6:27 AM) MCV [80.0-94.0 fL] 93.1 fL 92.9 fL 92.5 fL (04/25/18 3:36 AM) (04/24/18 2:03 AM) (04/23/18 6:27 AM) MCH [27.0-31.0 pg] 31.7 pg 31.3 pg 31.5 pg *HI* *HI* *HI* (04/25/18 3:36 AM) (04/24/18 2:03 AM) (04/23/18 6:27 AM) MCHC [32.0-36.0 g/dL] 34.0 g/dL 33.7 g/dL 34.0 g/dL (04/25/18 3:36 AM) (04/24/18 2:03 AM) (04/23/18 6:27 AM) RDW [11.5-14.5 %] 13.4 % 13.3 % 13.7 % (04/25/18 3:36 AM) (04/24/18 2:03 AM) (04/23/18 6:27 AM) MPV [7.4-10.4 fL] 7.5 fL 7.3 fL 7.3 fL (04/25/18 3:36 AM) *LOW* *LOW* (04/24/18 2:03 AM) (04/23/18 6:27 AM) Platelet [133-450 K/CMM] 416 K/CMM 341 K/CMM 309 K/CMM (04/25/18 3:36 AM) (04/24/18 2:03 AM) (04/23/18 6:27 AM) Segs [45.0-75.0 %] 79.8 % 80.3 % 83.4 % *HI* *HI* *HI* (04/25/18 3:36 AM) (04/24/18 2:03 AM) (04/23/18 6:27 AM) Bands [0.0-11.0 %] 3.0 % (04/19/18 9:07 AM) Lymphocytes [20.0-40.0 %] 10.5 % 8.2 % 6.0 % *LOW* *LOW* *LOW* (04/25/18 3:36 AM) (04/24/18 2:03 AM) (04/23/18 6:27 AM) Atypical Lymphs [<=0.0 %] 1.0 % *HI* (04/19/18 9:07 AM) Monocytes [2.0-12.0 %] 8.5 % 10.7 % 9.8 % (04/25/18 3:36 AM) (04/24/18 2:03 AM) (04/23/18 6:27 AM) Eosinophils [0.0-4.0 %] 0.7 % 0.4 % 0.5 % (04/25/18 3:36 AM) (04/24/18 2:03 AM) (04/23/18 6:27 AM) Basophils [0.0-1.0 %] 0.5 % 0.4 % 0.3 % (04/25/18 3:36 AM) (04/24/18 2:03 AM) (04/23/18 6:27 AM) Neutrophils # [1.5-8.1 12.0 K/CMM 13.7 K/CMM 17.3 K/CMM K/CMM] *HI* *HI* *HI* (04/25/18 3:36 AM) (04/24/18 2:03 AM) (04/23/18 6:27 AM) Lymphocytes # [1.0-5.5 1.6 K/CMM 1.4 K/CMM 1.2 K/CMM K/CMM] (04/25/18 3:36 AM) (04/24/18 2:03 AM) (04/23/18 6:27 AM) Monocytes # [0.0-0.8 K/CMM] 1.3 K/CMM 1.8 K/CMM 2.0 K/CMM *HI* *HI* *HI* (04/25/18 3:36 AM) (04/24/18 2:03 AM) (04/23/18 6:27 AM) Eosinophils # [0.0-0.5 0.1 K/CMM 0.1 K/CMM 0.1 K/CMM K/CMM] (04/25/18 3:36 AM) (04/24/18 2:03 AM) (04/23/18 6:27 AM) Basophils # [0.0-0.2 K/CMM] 0.1 K/CMM 0.1 K/CMM 0.1 K/CMM (04/25/18 3:36 AM) (04/24/18 2:03 AM) (04/23/18 6:27 AM) RBC Morph Normal (04/19/18 9:07 AM) Plt Morph Normal (04/19/18 9:07 AM) PT [12.0-14.7 seconds] 15.3 seconds *HI* (04/18/18 1:35 AM) INR [0.85-1.17] 1.23 *HI* (04/18/18 1:35 AM) PTT [22.9-35.8 seconds] 39.7 seconds *HI* (04/18/18 1:35 AM) Anti-Xa Low Molecular 0.92 IU/mL Heparin *NA* (04/18/18 10:29 PM) Immunizations No data available for this section Procedures Procedure Date Related Diagnosis Body Site Status Bypass Completed Insertion of coronary artery stent Completed Social History Social History Type Response Smoking Status Never smoker; Previous treatment: None; Ready to change: No; Concerns about tobacco use in household: No; Exposure to Tobacco Smoke None; Cigarette Smoking Last 365 Days No; Reg Smoking Cessation Counseling No entered on: 04/17/18 Assessment and Plan Extracted from: Title: EGS Discharge Summary Author: Kaya Esquivel MD Date: Cori Zimmerman MD Date of Admission: Patient [...] Gastroenterology Graciela Duran MD Office: Service: Medicine Mkie Siu MD Office: Service: Gastroenterology Operative Procedures: (no surgical procedures documented) [...] Patient instructed to follow up with his shorer and PCP before interval cholecystectomy. Return precaustions [...] PO, Bedtime. bisacodyl: 10 mg, 1 supp, [place], Daily, PRN: Constipation. buPROPion: 100 mg, 1 [...] mg, 1 tab, PO, Q4H, PRN: Nausea & Vomiting. sugammadex: 500 mg, 5 mL, IV, [...] tab, PO, Daily, 30 tab, 0 Refill(s). Suspended clopidogrel: 75 mg, 1 tab, PO, [...] Results. enoxaparin: 40 mg, 0.4 mL, SUB-Q, [id number]. glucagon: 1 mg, IM, PRN, PRN: Blood [...] [facility] [place] 1 [place]. Please call today or tomorrow to make your appointment. Please return to the ER, or call the physician/clinic with any chest pain, shortness of breath fever >101F, nausea, vomiting, diarrhea, pain unrelieved by pain mediciation, no urine output for greate r than 8 hours, any signs of infection [...] aspirin and follow- up with his primary shorer. The risks and benefits were discussed with him -- hemorrhage versus stroke from atrial fibrillation. Kell Estevez MD Extracted from: Title: EGS Progress Note Author: Kaya Esquivel MD Date: 04/24/18 Mr. Jalloh is a 62 year old male with a past medical history of hypothyroid, DM, CHF, MANUELA, CAD s/p CABG, A-fib that presented from an outside hospital with gallstone pancreatitis. CT shows sever e inflammation of pancreas, worse from previous scan [...] Severe acutegallstone pancreatitis with peripancreatic fluid collection -- s/p ERCP with sphincterotomy. Currently asymptomatic without pain. Advance diet and observe for symptoms. Fluid collection d oes not appear infected.No indication for intervention at this time given timing in relation to acute pancreatitis and lack of maturity of the collection- -also, patient isasymptomatic without eviden ceof infection. Delay cholecystectomy given the peripancreatic fluid collection and risks with early cholecystectomy. CAD, a-fib -- Holding Xarelto given evidence of hemorrhagic conversion on CT. On aspirin. Continue beta surekha. Kell Estevez MD Extracted from: Title: Team A - H&P Author: Tom Denney [...] and emesis x1; patient was transferred to [facility] for possible ERCP for acute pancreatitis (lipase [...] NEB, QID bisacodyl: 10 mg, 1 supp, [place], Daily, PRN: Constipation buPROPion: 100 mg, PO, [...] mL: 75 ml/hr, IV, Stop: 05/17/18 13:26:00 [employer] polyethylene glycol 3350: 17 gm, 1 pkt, [...] 1 tab, PO, BID, 180 tab, 0 Refill(s) clopidogrel 75 mg oral tablet: 75 mg, [...] mg rect SUPP 10 mg 1 supp, WV, Daily Dextrose 50% 50 ml INJ syringe [...] been selected or recorded. Procedure history: Bypass ([id number]). Social History Social & Psychosocial Habits Tobacco 04/17/2018 Use: Never smoker Previous treatment: None Ready to change: No Concerns about tobacco use in household: No Exposure to Tobacco Smoke None Cigarette Smoking Last 365 Days No Reg Smoking Cessation Counseling No . Physical Examination VS/Measurements Vital Signs (last 24 hrs) Last Charted Temp Oral 98.1 DegF (APR 17:16) Heart Rate Peripheral 98 bpm (APR 17:16) Resp Rate 19 BRMIN (APR 17:) SBP H 151mmHg (APR 17:) DBP H 98mmHg (APR 17:) SpO2 96 % (APR 17:16) Weight 155.45 kg (APR 17 12:57) Height [...] stents (PCI) who presented from [facility] to [facility] for a cute pancreatitis for possible [...] mIVF, pain control, morphine PRN, Phenergan PRN, [place] PRN, Tylenol PRN #Cholelithiasis -seen on imaging [...] Addendum by Apolinar Olea MD on 04/17/2018 ATTENDING NOTE: 22:30 I saw and examined this medically complex patient ; reviewed the labs; independently visualized radiographic images and reports , and agree with this note. Apolinar lOea MD
[2018-10-28] MEDS ORDERED: NA CHLORIDE 0.9% 500 ML ONE (07:13)
[2018-10-28] MEDS ORDERED: MIDAZOLAM HCL 5 MG/5 ML INJ ONE ×2 (07:42→08:18)
[2018-10-28] MEDS ORDERED: ATROPINE SULF 1 MG/10 ML SYR IV ONE ×2 (07:42→09:01)
[2018-10-28] MEDS ORDERED: MIDAZOLAM HCL 2 MG/2 ML INJ ONE ×4 (08:09→09:01)
[2018-10-28] MEDS ORDERED: HEPARIN 5000 UNIT/ML 1 ML VIAL ONE (09:00)
[2018-10-28] MEDS ORDERED: NA CHLORIDE 0.9% 0 ML ONE (09:01)
[2018-10-28] MEDS ORDERED: NITROGLYCERIN/D5W 0 MG/0 ML BTL IV ONE (09:01)
[2018-10-28] MEDS ORDERED: NITROGLYCERIN 100 MCG/ML SYR (for cath lab use only) IV ONE (09:01)
[2018-10-28] MEDS ORDERED: FENTANYL CITR 100 MCG/2 ML ONE (09:01)
[2018-10-28] MEDS ORDERED: NICARDIPINE HCL 25 MG/10 ML IV ONE (09:01)
--- NOTE | 2018-10-29 21:11 | OP ---
Surgeon: David Tucker MD The patient is a 62-year-old, the patient of Dr. Friedman with symptomatic atrial fibrillation, unrespo nsive to beta-blockers and on anticoagulation, admitted on 10/28/2018 for an outpatient cardioversion . He received 15 mg of Versed, received 3 shocks of 100 and 200 joules and did not convert to sinus rhythm. He remained in atrial fibrillation. Total conscious sedation was 30 minutes. Complications: None. Blood Loss: None. Final Diagnosis: Atrial fibrillation that failed cardioversion to normal rhythm. Plan: We will plan to continue his medical regimen for now. We will consider other medical therapy such as sotalol, amiodarone and/or ablation. The patient will go home today and he will see me in e office in the next couple of days. KULWINDER/DIEGO Voice ID: [id number] Report ID: [id number]
== END 2018-10-28 10:30 | disposition home or self-care (01) ==
LOC: CCL 06:26
DX: I48.2 Chronic atrial fibrillation (principal); I25.10 Atherosclerotic heart disease of native coronary artery without angina pectoris; I67.9 Cerebrovascular disease, unspecified; I10 Essential (primary) hypertension; E78.5 Hyperlipidemia, unspecified; I35.0 Nonrheumatic aortic (valve) stenosis; E11.620 Type 2 diabetes mellitus with diabetic dermatitis; E03.9 Hypothyroidism, unspecified; R06.09 Other forms of dyspnea; Z95.1 Presence of aortocoronary bypass graft; Z98.61 Coronary angioplasty status; Z79.82 Long term (current) use of aspirin; Z79.4 Long term (current) use of insulin; Z79.899 Other long term (current) drug therapy; Z87.891 Personal history of nicotine dependence
CPT/HCPCS: 85025; 80048; 36415; 85610; 82962; 85730; 71046; 92960; J2250 ×5; J0583; J1644; J3010

== ENCOUNTER 2019-04-02 23:37 | Emergency (ER) | payer OTHER ==
--- OUTSIDE RECORDS SUMMARY | 2019-04-02 23:39 | XMS REPORT ---
:1955 [facility] Address [address] [place] [address] Dr. Parra[address] [place] [address] Care Team Providers Name Role Phone Unavailable Unavailable Unavailable Problems This patient has no known problems. Allergies, Adverse Reactions, Alerts This patient has no known allergies or adverse reactions. Medications This patient has no known medications. Encounters Start End Encounter Admission Attending Care Care Encounter Date/Time Date/Time Type Type Clinicians Facility Department ID 2019-03-07 Inpatient [facility] [id number] 10:25:00
[2019-04-03] MEDS ORDERED: MORPHINE 2 MG/ML SYR ONE (00:44)
[2019-04-03] MEDS ORDERED: PROMETHAZINE INJ 25 MG/ML AMP ONE (00:44)
[2019-04-03] MEDS ORDERED: NA CHLORIDE 0.9% 1,000 ML ONE (00:45)
[2019-04-03 01:14] LABS: Absolute Lymphocytes (CBC) 1.2 K/uL (0.7-4.9); Basophils % 0.4 % (0-1.3); Lymphocytes % 11.5 % (15.3-44.8); MPV 7.5 fL (7.6-11.3); RBC Red Blood Cell Count 4.55 M/uL (4.33-5.43)
[2019-04-03 01:26] LABS: Albumin 3.1 g/dL (3.4-5.0); Bilirubin Direct 0.5 mg/dL (0-0.2); Bilirubin Total 1.9 mg/dL (0.2-1.0); Protein, Total 7.3 g/dL (6.4-8.2)
[2019-04-03] MEDS ORDERED: CEFTRIAXONE/SWI 1gm 1 GM/10 ML SYR ONE (05:59)
[2019-04-03] MEDS ORDERED: ONDANSETRON 4 MG/2 ML VIAL ONE (06:05)
--- NOTE | 2019-04-03 07:06 | RAD REPORT ---
EXAM DESCRIPTION: CT - Abdomen Pelvis W Contrast - 04/03/2019 6:45 am CLINICAL HISTORY: PAIN AT SURGICAL SITE, dysuria, history of gastric sleeve procedure March 07 COMPARISON: CT study April 2018 TECHNIQUE: Biphasic, helical CT imaging of the abdomen and pelvis was performed following 100 ml non -ionic IV contrast. No oral contrast given. All CT scans are performed using dose optimization technique as appropriate and may include automated exposure control or mA/KV adjustment according to patient size. FINDINGS: The pleural thickening and pleural calcifications present in the left base. No acute lung base finding. No pericardial effusion. Liver and spleen show no suspicious findings. Cholecystectomy clips are present with no biliary tree dilatation. No mass of the pancreatic parenchyma seen. Pancreatitis is not suspected. There is a 10 x 4 centimeter low-density collection along the anterior inferior margin of the stomach and anterior m argin of the pancreas. Given the recent surgical history this is most likely a postoperative seroma. No air within this collection. Symmetric renal function is seen with no hydronephrosis or suspicious renal mass. No pyelonephritis o r acute parenchymal process. No bladder abnormalities. Left adrenal gland is normal. Small right adre nal mass has not changed from April 2018. Postsurgical changes are noted to the stomach ellis. No gastric wall thickening or edema seen. Small bowel is not dilated. No appendicitis findings. Indwelling tube is seen in the right upper abdomen. T here is mild stranding along the course of the tubing. No abdominal wall hematoma. No abscess in the wall fat. No intraperitoneal abscess. No free air, free fluid or pneumatosis. No hernia, mass or bul ky lymphadenopathy. Bony degenerative changes are present most notable at L2-3. These changes are not substantially diffe rent from the April study. No bone destructive changes. CT has low sensitivity for discitis and ea rly vertebral osteomyelitis. Vascular calcifications are present. IMPRESSION: Mild stranding is seen along the course of the right upper abdomen indwelling tube or dr jesican line. There is no abscess in the subcutaneous fatty tissues, abdominal wall or peritoneal cavity. A 10 x 4 centimeter low-density collection adjacent to the stomach and pancreas is believed be a post operative seroma. There are no CT findings that would indicate this is an infected fluid collection. No other acute or emergent findings. Full findings detailed in the body of the report. Postsurgical changes to the gastric wall are noted with no wall thickening or edema.
--- NOTE | 2019-04-03 07:11 | ER ---
Nurse's Notes [facility] Name: Alicia Jalloh Age: 63 yrs Sex: Male : 1955 Arrival Date: 04/02/2019 Time: 23:48 Bed 4 Private MD: Diagnosis: Fever. Strep pharyngitis. S/P Gastric sleeve surgery. Chronic bilateral knee pain Presentation: 04/02 23:48 Presenting complaint: EMS states: "the pt reported to us that he was having a fever if jd3 100.0 at home and had a gastric sleeve surgery on the March. the pt reported the surgical sight was looking red and was worried it was infected. he was reporting that he called the surgeon after having dark colored urine and was told to come to the ER to be evaluated. he is also reporting pain in SUNNI knees. he reported he took some Tramadol at 2130, but it was not helping.". Transition of care: patient was not received from another setting of care. Onset of symptoms was April 02, 2019. Risk Assessment: Do you want to hurt yourself or someone else? Patient reports no desire to harm self or others. Initial Sepsis Screen: Does the patient meet any 2 criteria? HR > 90 bpm. No. Patient's initial sepsis screen is negative. Does the patient have a suspected source of infection? No. Patient's initial sepsis screen is negative. Care prior to arrival: None. 23:48 Method Of Arrival: EMS: [facility] jd3 23:48 Acuity: MARIE 3 jd3 04/03 00:05 Note primary care doctor is Dr. Campos. Surgeon for gastric sleeve is Dr. Callahan. jd3 Historical: - Allergies: 04/02 23:59 No Known Allergies; jd3 - Home Meds: 23:59 Xarelto 20 mg oral tab 1 tab once daily [Active]; losartan 25 mg oral tab 1 tab once jd3 daily [Active]; levothyroxine 150 mcg oral tab 1 tab once daily [Active]; glipizide 2.5 mg oral tr24 1 tabs twice a day [Active]; tramadol 50 mg Oral tab [Active]; omeprazole 40 mg Oral cpDR 1 cap once daily [Active]; escitalopram oxalate 5 mg oral tab 1 tab once daily [Active]; bupropion HCl 100 mg Oral tab [Active]; atorvastatin 40 mg oral tab 1 tab once daily [Active]; carvedilol 25 mg oral tab 1 tab daily [Active]; - PMHx: 23:59 Diabetes - NIDDM; High Cholesterol; Hypothyroidism; Hypertension; Myocardial infarction;jd3 - PSHx: 23:59 Heart stents; gastric sleeve; triple bypass; jd3 - Immunization history:: Adult Immunizations up to date, Flu vaccine is up to date. - Social history:: Smoking status: Patient/guardian denies using tobacco, but has a distant history of tobacco abuse. - Ebola Screening: : Patient negative for fever greater than or equal to 101.5 degrees Fahrenheit, and additional compatible Ebola Virus Disease symptoms. Screenin/02 00:00 Abuse screen: Denies threats or abuse. Nutritional screening: No deficits noted. jd3 Tuberculosis screening: No symptoms or risk factors identified. Fall Risk Ambulatory Aid- None/Bed Rest/Nurse Assist (0 pts). Gait- Weak (10 pts.). Mental Status- Oriented to own ability (0 pts). Total Haywood Fall Scale indicates No Risk (0-24 pts). Assessment: 00:00 General: Appears in no apparent distress. uncomfortable, Behavior is calm, cooperative, jd3 appropriate for age. Pain: Complains of pain in right knee and left knee Pain currently is 8 out of 10 on a pain scale. Quality of pain is described as aching, sharp. Neuro: Level of Consciousness is awake, alert, obeys commands, Oriented to person, place, time, situation. Cardiovascular: Denies chest pain, Capillary refill < 3 seconds Patient's skin is warm and dry. Rhythm is irregular. Respiratory: Airway is patent Respiratory effort is even, unlabored, Respiratory pattern is regular, symmetrical, Denies cough, shortness of breath. GI: Abdomen is round non-distended, Abd is soft and non tender X 4 quads. Patient currently denies diarrhea, nausea, vomiting. : No signs and/or symptoms were reported regarding the genitourinary system. EENT: No signs and/or symptoms were reported regarding the EENT system. Derm: Skin is intact, Skin is dry, Skin is normal, Skin temperature is warm Wound noted abdomen Other: surgical sight with clean dressing noted to abdomen. pt denies pain to surgical sight. pt reporting redness to surgical sight. Musculoskeletal: Circulation, motion, and sensation intact. Range of motion: intact in all extremities. 01:03 Reassessment: Patient appears in no apparent distress at this time. No changes from jd3 previously documented assessment. Patient and/or family updated on plan of care and expected duration. Pain level reassessed. Patient is alert, oriented x 3, equal unlabored respirations, skin warm/dry/pink. 02:10 Reassessment: Patient appears in no apparent distress at this time. No changes from jd3 previously documented assessment. Patient and/or family updated on plan of care and expected duration. Pain level reassessed. Patient is alert, oriented x 3, equal unlabored respirations, skin warm/dry/pink. 03:29 Reassessment: Patient appears in no apparent distress at this time. Patient and/or jd3 family updated on plan of care and expected duration. Pain level reassessed. Patient is alert, oriented x 3, equal unlabored respirations, skin warm/dry/pink. awaiting CT results. resting in bed with eyes closed, even and unlabored respirations. Patient states feeling better. 04:29 Reassessment: Patient appears in no apparent distress at this time. Patient is alert, rr5 oriented x 3, equal unlabored respirations, skin warm/dry/pink. awaiting for CT result. follow up to CT staff done. 05:39 Reassessment: Patient appears in no apparent distress at this time. resting eyes closed rr5 breathing spontaneously at room air. still waiting for CT result. 05:55 Reassessment: Patient appears in no apparent distress at this time. reassessment done rr5 by ED provider with order made and carried out patient is positive for strep infection. 06:05 Reassessment: complaints of nausea. ED informed with order made and carried out. rr5 06:51 Reassessment: Patient appears in no apparent distress at this time. Patient is alert, rr5 oriented x 3, equal unlabored respirations, skin warm/dry/pink. CT staff spoke to hospital radiologist to read the CT. 07:00 Reassessment: RECD REPORT FROM RUDI REILLY. 63YO WM P/W FEVER AND R/O SURGICAL WOUND bp INFECTION. ALL CURRENT ORDERS COMPLETED. 07:45 Reassessment: PT D/C HOME VIA W/C WITH FAMILY, DX WITH STREP PHARYNGITIS. bp Vital Signs: 04/02 23:59 BP 151 / 91; Pulse 125; Resp 18 S; Temp 98.1(O); Pulse Ox 99% on R/A; Weight 136.08 kg jd3 (R); Height 6 ft. 1 in. (185.42 cm) (R); Pain 8/10; 04/03 00:04 Pulse 105; jd3 01:01 BP 145 / 94; Pulse 99; Resp 19 S; Pulse Ox 98% on R/A; jd3 02:26 BP 136 / 82; Pulse 89; Resp 18 S; Pulse Ox 100% on R/A; Pain 6/10; jd3 02:43 BP 129 / 86; Pulse 99; Resp 19; Pulse Ox 97% ; rr5 03:30 BP 140 / 84; Pulse 101; Resp 18 S; Pulse Ox 97% on R/A; jd3 04:14 BP 131 / 81; Pulse 89; Resp 19; Temp 97.5; Pulse Ox 99% ; rr5 05:39 BP 144 / 79; Pulse 92; Resp 18; Pulse Ox 96% on R/A; rr5 06:50 BP 145 / 91; Pulse 89; Resp 19; Pulse Ox 96% ; rr5 07:45 BP 129 / 83; Pulse 95; Resp 16; Temp 98; Pulse Ox 95% ; bp 04/02 23:59 Body Mass Index 39.58 (136.08 kg, 185.42 cm) jd3 ED Course: 04/02 23:48 Patient arrived in ED. jd3 23:48 Tari Mcclellan FNP-C [facility]. snw 23:48 Al Hurtado MD is Attending Physician. snw 23:52 Triage completed. jd3 04/03 00:00 Arm band placed on. jd3 00:00 Patient has correct armband on for positive identification. Placed in gown. Bed in low jd3 position. Call light in reach. Side rails up X2. Adult w/ patient. 00:05 Luisito Mena RN is Primary Nurse. jd3 00:59 Accessed peripheral vein via ultrasound, utilizing dynamic ultrasound technique using jd3 20G Nexia IV catheter ,sterile technique, per hospital protocol. Clean \\T\\ dry. Dressing intact. Good blood return. Flushes easily. 01:32 Radiology exam delayed due to lab results not completed at this time. (BUN/Creatinine). 02:59 CT completed. Patient tolerated procedure well. Patient moved to CT via stretcher. Patient moved back from CT. 04:13 No provider procedures requiring assistance completed. Flu and/or RSV swab sent to lab. rr5 Strep swab sent to lab. 06:47 Abdomen In Process Unspecified. EDMS 07:45 IV discontinued, intact, bleeding controlled, No redness/swelling at site. Pressure bp dressing applied. Administered Medications: 00:59 Drug: NS 0.9% 1000 ml Route: IV; Rate: 125 ml/hr; Site: left antecubital; jd3 07:47 Follow up: IV Status: Completed infusion; IV Intake: 1000ml bp 00:59 Drug: morphine 2 mg Route: IVP; Site: left antecubital; jd3 02:00 Follow up: Response: No adverse reaction rr5 02:00 Follow up: Response: Pain is decreased; RASS: Alert and Calm (0) rr5 01:00 Drug: Phenergan 6.25 mg Route: IVP; Site: left antecubital; jd3 02:00 Follow up: Response: No adverse reaction rr5 06:00 Drug: Rocephin 1 grams Route: IV; Rate: bolus; Site: left antecubital; rr5 06:51 Follow up: Response: No adverse reaction; IV Status: Completed infusion jd3 06:05 Drug: Zofran 4 mg Route: IVP; Site: left antecubital; rr5 06:51 Follow up: Response: No adverse reaction jd3 06:07 Not Given (Duplicate Order): Rocephin - (cefTRIAXone) 1 grams IVPB once over 30 mins; rr5 (mix in 50 mL NS) Intake: 07:47 IV: 1000ml; Total: 1000ml. bp Outcome: 07:08 Discharge ordered by . [email or web address] 07:45 Discharged to home via wheelchair, with family. bp 07:45 Condition: stable 07:45 Discharge instructions given to patient, Instructed on discharge instructions, follow up and referral plans. medication usage, Demonstrated understanding of instructions, follow-up care, medications, Prescriptions given X 2. 07:46 Patient left the ED. bp Signatures: Dispatcher [employer] EDAR Al Hurtado MD MD pkl Therrien, Shelly, PIPE BENDER-C PIPE BENDER-Beckiew Scooter Boo Jonathon, RN RN jd3 Maldonado Ruvalcaba, RN RN bp Darius Tran RN RN rr5 Corrections: (The following items were deleted from the chart) 05:45 03:07 In radiology for Abdomen Pelvis W Con+CT.RAD.BRZ. EDMS EDMS
--- NOTE | 2019-04-03 07:12 | EDPHYS ---
Physician Documentation [facility] Name: Alicia Jalloh Age: 63 yrs Sex: Male : 1955 Arrival Date: 04/02/2019 Time: 23:48 Bed 4 Private MD: ED Physician Al Hurtado HPI: 04/03 01:29 This 63 yrs old Male presents to ER via EMS with complaints of bilateral knee snw pain, dark urine, recent surgery. 01:29 The patient presents with abdominal pain in the right upper quadrant, draining dark snw liquid from drain at RUQ post cyst removal. Onset: The symptoms/episode began/occurred gastric sleeve, hiatal hernia repair, and cyst I\T\D from between gallbladder and pancreas. Associated signs and symptoms: Pertinent positives: nausea, dark urine, and bilateral knee pain. The symptoms are described as waxing/waning. Severity of pain: At its worst the pain was moderate. It is unknown whether or not the patient has had similar symptoms in the past. The patient has been recently seen by a physician:. Historical: - Allergies: 04/02 23:59 No Known Allergies; jd3 - Home Meds: 23:59 Xarelto 20 mg oral tab 1 tab once daily [Active]; losartan 25 mg oral tab 1 tab once jd3 daily [Active]; levothyroxine 150 mcg oral tab 1 tab once daily [Active]; glipizide 2.5 mg oral tr24 1 tabs twice a day [Active]; tramadol 50 mg Oral tab [Active]; omeprazole 40 mg Oral cpDR 1 cap once daily [Active]; escitalopram oxalate 5 mg oral tab 1 tab once daily [Active]; bupropion HCl 100 mg Oral tab [Active]; atorvastatin 40 mg oral tab 1 tab once daily [Active]; carvedilol 25 mg oral tab 1 tab daily [Active]; - PMHx: 23:59 Diabetes - NIDDM; High Cholesterol; Hypothyroidism; Hypertension; Myocardial infarction;jd3 - PSHx: 23:59 Heart stents; gastric sleeve; triple bypass; jd3 - Immunization history:: Adult Immunizations up to date, Flu vaccine is up to date. - Social history:: Smoking status: Patient/guardian denies using tobacco, but has a distant history of tobacco abuse. - Ebola Screening: : Patient negative for fever greater than or equal to 101.5 degrees Fahrenheit, and additional compatible Ebola Virus Disease symptoms. ROS: 04/03 01:12 Constitutional: Negative for fever, chills, and weight loss, Eyes: Negative for injury, snw pain, redness, and discharge, ENT: Negative for injury, pain, and discharge, Neck: Negative for injury, pain, and swelling, Cardiovascular: Negative for chest pain, palpitations, and edema, Respiratory: Negative for shortness of breath, cough, wheezing, and pleuritic chest pain. Back: Negative for injury and pain. Skin: Negative for injury, rash, and discoloration, Neuro: Negative for headache, weakness, numbness, tingling, and seizure, Psych: Negative for depression, anxiety, suicide ideation, homicidal ideation, and hallucinations. Abdomen/GI: Positive for nausea. : Positive for dark urine. MS/extremity: Positive for pain, of the bilateral knees. Exam: 01:07 Head/Face: Normocephalic, atraumatic. Eyes: Pupils equal round and reactive to light, snw extra-ocular motions intact. Lids and lashes normal. Conjunctiva and sclera are non-icteric and not injected. Cornea within normal limits. Periorbital areas with no swelling, redness, or edema. ENT: Nares patent. No nasal discharge, no septal abnormalities noted. Tympanic membranes are normal and external auditory canals are clear. Oropharynx with no redness, swelling, or masses, exudates, or evidence of obstruction, uvula midline. Mucous membranes moist. Neck: Trachea midline, no thyromegaly or masses palpated, and no cervical lymphadenopathy. Supple, full range of motion without nuchal rigidity, or vertebral point tenderness. No Meningismus. Chest/axilla: Normal chest wall appearance and motion. Nontender with no deformity. No lesions are appreciated. Cardiovascular: Regular rate and rhythm with a normal S1 and S2. No gallops, murmurs, or rubs. Normal PMI, no JVD. No pulse deficits. Respiratory: Lungs have equal breath sounds bilaterally, clear to auscultation and percussion. No rales, rhonchi or wheezes noted. No increased work of breathing, no retractions or nasal flaring. 01:07 Back: No spinal tenderness. No costovertebral tenderness. Full range of motion. Neuro: Awake and alert, GCS 15, oriented to person, place, time, and situation. Cranial nerves II-XII grossly intact. Motor strength 5/5 in all extremities. Sensory grossly intact. Cerebellar exam normal. Normal gait. Psych: Awake, alert, with orientation to person, place and time. Behavior, mood, and affect are within normal limits. 01:07 Constitutional: The patient appears awake, obese, pale. 01:07 Abdomen/GI: Inspection: scar(s), are noted in the right upper quadrant, left upper quadrant and right lower quadrant, Bowel sounds: active, Palpation: mild abdominal tenderness, in the diffusely, drain to upper right quadrant from cyst, area around drain with mild ecchymotic/erythematous area, draining dark fluid in collection bag. Family concerned for infection. Pt states bilateral knee pain with mild nausea and darkened urine. Dr. Callahan notified by family and he suggested pt come to ED for Eval.. 01:07 Musculoskeletal/extremity: Extremities: grossly normal except: noted in the bilateral knees: pain, ROM: no acute changes, Circulation is intact in all extremities. Sensation intact. tender to left > right medial knees 01:07 Skin: Appearance: Color: pale, Temperature: warm, Moisture: dry. 01:07 Neuro: Exam negative for acute changes. Vital Signs: 04/02 23:59 BP 151 / 91; Pulse 125; Resp 18 S; Temp 98.1(O); Pulse Ox 99% on R/A; Weight 136.08 kg jd3 (R); Height 6 ft. 1 in. (185.42 cm) (R); Pain 8/10; 04/03 00:04 Pulse 105; jd3 01:01 BP 145 / 94; Pulse 99; Resp 19 S; Pulse Ox 98% on R/A; jd3 02:26 BP 136 / 82; Pulse 89; Resp 18 S; Pulse Ox 100% on R/A; Pain 6/10; jd3 02:43 BP 129 / 86; Pulse 99; Resp 19; Pulse Ox 97% ; rr5 03:30 BP 140 / 84; Pulse 101; Resp 18 S; Pulse Ox 97% on R/A; jd3 04:14 BP 131 / 81; Pulse 89; Resp 19; Temp 97.5; Pulse Ox 99% ; rr5 05:39 BP 144 / 79; Pulse 92; Resp 18; Pulse Ox 96% on R/A; rr5 06:50 BP 145 / 91; Pulse 89; Resp 19; Pulse Ox 96% ; rr5 07:45 BP 129 / 83; Pulse 95; Resp 16; Temp 98; Pulse Ox 95% ; bp 04/02 23:59 Body Mass Index 39.58 (136.08 kg, 185.42 cm) jd3 MDM: 04/02 23:49 Patient medically screened. snw 04/03 05:51 Data reviewed: vital signs, nurses notes, lab test result(s), radiologic studies. ED pkl course: Strep +ve. IV Rocephine 1 gm ordered. Still waiting for CT Scan abd. / pelvis results. 07:08 Patient medically screened. pkl 04/03 00:01 Order name: Basic Metabolic Panel; Complete Time: 01:28 snw 04/03 00:01 Order name: CBC with Diff; Complete Time: 01:28 snw 04/03 00:01 Order name: Creatinine for Radiology; Complete Time: 02:10 snw 04/03 00:01 Order name: Hepatic Function; Complete Time: 01:28 snw 04/03 00:01 Order name: Lipase; Complete Time: 01:28 snw 04/03 00:01 Order name: CPK; Complete Time: 01:28 snw 04/03 00:01 Order name: Blood Culture Adult (2) snw 04/03 00:08 Order name: TS; Complete Time: 02:06 snw 04/03 00:08 Order name: TSH; Complete Time: 01:43 snw 04/03 00:08 Order name: Lactate; Complete Time: 01:28 snw 04/03 04:04 Order name: Flu; Complete Time: 05:43 pkl 04/03 04:04 Order name: Strep; Complete Time: 05:43 pkl 04/03 00:01 Order name: Labs collected and sent; Complete Time: 00:59 snw 04/03 05:47 Order name: Abdomen ; Complete Time: 07:10 EDMS Administered Medications: 00:59 Drug: NS 0.9% 1000 ml Route: IV; Rate: 125 ml/hr; Site: left antecubital; jd3 07:47 Follow up: IV Status: Completed infusion; IV Intake: 1000ml bp 00:59 Drug: morphine 2 mg Route: IVP; Site: left antecubital; jd3 02:00 Follow up: Response: No adverse reaction rr5 02:00 Follow up: Response: Pain is decreased; RASS: Alert and Calm (0) rr5 01:00 Drug: Phenergan 6.25 mg Route: IVP; Site: left antecubital; jd3 02:00 Follow up: Response: No adverse reaction rr5 06:00 Drug: Rocephin 1 grams Route: IV; Rate: bolus; Site: left antecubital; rr5 06:51 Follow up: Response: No adverse reaction; IV Status: Completed infusion jd3 06:05 Drug: Zofran 4 mg Route: IVP; Site: left antecubital; rr5 06:51 Follow up: Response: No adverse reaction jd3 06:07 Not Given (Duplicate Order): Rocephin - (cefTRIAXone) 1 grams IVPB once over 30 mins; rr5 (mix in 50 mL NS) Disposition: 06:05 Co-signature as Attending Physician, Al Hurtado MD. pk Disposition: 04/03/19 07:08 Discharged to Home. Impression: Fever. Strep pharyngitis. S/P Gastric sleeve surgery. Chronic bilateral knee pain. - Condition is Stable. - Prescriptions for Augmentin 875- 125 mg Oral Tablet - take 1 tablet by ORAL route every 12 hours for 7 days; 14 tablet. Ultram 50 mg Oral Tablet - take 1 tablet by ORAL route every 8 hours As needed; 20 tablet. - Medication Reconciliation Form, Thank You Letter, Antibiotic Education, Prescription Opioid Use form. - Follow up: Private Physician; When: 2 - 3 days; Reason: Re-evaluation by your physician. - Problem is new. - Symptoms have improved. Signatures: Dispatcher [employer] Al Ching MD MD pkl Tari Mcclellan, PRODUCTION CONTROLLER-C PRODUCTION CONTROLLER-Csnw Luisito Mena RN RN Maldonado Vogel RN RN Darius Holcomb, RN RN rr5 Corrections: (The following items were deleted from the chart) 05:45 00:10 Abdomen Pelvis W Con+CT.RAD.BRZ ordered. EDDC EDMS 07:46 07:08 04/03/2019 07:08 Discharged to Home. Impression: Fever. Strep pharyngitis. S/P bp Gastric sleeve surgery. Chronic bilateral knee pain. Condition is Stable. Forms are Medication Reconciliation Form, Thank You Letter, Antibiotic Education, Prescription Opioid Use. Follow up: Private Physician; When: 2 - 3 days; Reason: Re-evaluation by your physician. Problem is new. Symptoms have improved. pkl
[2019-04-03 08:09] VITALS: BP 129/83; TEMP 98; O2SAT 95
== END 2019-04-03 07:46 | disposition home or self-care (01) ==
LOC: ER 23:37
DX: J02.0 Streptococcal pharyngitis (principal); G89.29 Other chronic pain; Z98.84 Bariatric surgery status; I10 Essential (primary) hypertension; E11.9 Type 2 diabetes mellitus without complications; E03.9 Hypothyroidism, unspecified; E78.00 Pure hypercholesterolemia, unspecified; Z79.01 Long term (current) use of anticoagulants; Z95.1 Presence of aortocoronary bypass graft; Z95.818 Presence of other cardiac implants and grafts
CPT/HCPCS: 96365; 96361; 87040 ×2; 85025; 80048; 36415; 86900; 86850; 82550; 86901; 80076; 87081; 83605; 84443; 83690; 87804 ×2; 74177; 96375; 99285; Q9967; J2550; J2270; J0696; J7030; J2405

== ENCOUNTER 2024-06-10 18:38 | Inpatient (IN) | payer OTHER ==
[2024-06-10] MEDS ORDERED: ACETAMINOPHEN 500 MG TAB ONE (18:53)
--- NOTE | 2024-06-10 20:06 | RAD REPORT ---
EXAMINATION: ONE VIEW CHEST XR CLINICAL INDICATION: CONGESTION TECHNIQUE: Frontal chest projection is submitted. Examination is limited by patient positioning and t echnique. COMPARISON: 10/17/2023 FINDINGS: Mild bilateral pulmonary edema is suspected. The heart is moderately enlarged in size. No displaced f ractures identified. Sternotomy wires. IMPRESSION: Mild CHF versus volume overload pattern is suspected.
[2024-06-10 20:23] LABS: Absolute Lymphocytes (CBC) 0.2 K/uL (0.7-4.9); Absolute Monocytes 0.4 K/uL (0.1-1.3); Absolute Neutrophil 6.5 K/uL (1.8-8.0); Basophils % 0.3 % (0-1.3); Eosinophils % 0.1 % (0-4.4); Hematocrit 30.5 % (39.6-49.0); Hemoglobin 10.3 g/dL (13.6-17.9); Lymphocytes % 2.9 % (15.3-44.8); MCH 29.3 pg (27.0-35.0); MCHC 33.8 g/dL (32.0-36.0); MCV 86.6 fL (80-100); MPV 7.5 fL (7.6-11.3); Neutrophils % 90.7 % (41.7-73.7); Platelets 167 thou/uL (152-406); RBC Red Blood Cell Count 3.52 M/uL (4.33-5.43); Red Cell Distribution Width 16.8 % (12.1-15.2)
[2024-06-10 20:43] LABS: Anion Gap 9.9 mEq/L (5.0-15.0); Potassium 3.9 mEq/L (3.5-5.1); Troponin High Sensitivity 31.3 pg/mL (<58.9)
[2024-06-10 20:45] LABS: Influenza A Ag Negative; Influenza B Ag Negative; SARS-CoV-2 Antigen Rapid Res Negative (Negative)
[2024-06-10 22:04] LABS: Band Neutrophils 16 % (0-1); Differential Total Cells Count 100; Lymphocytes 3 % (15-42); Monocytes 1 % (0-10); Nucleated Red Blood Cells 1 /100WBC; Reactive Lymphocytes 1 %; Segmented Neutrophils 79 % (40-80)
[2024-06-10 22:05] LABS: Blood Morphology Comment NOT SEEN (NOT SEEN); Platelet Estimate ADEQ
--- NOTE | 2024-06-10 22:24 | ER ---
Nurse's Notes [facility] Name: Alicia Jalloh Age: 68 yrs Sex: Male : 1955 Arrival Date: 06/10/2024 Time: 18:38 Bed 2 Private MD: Diagnosis: Acute on chronic diastolic (congestive) heart failure;Unspecified atrial fibrillation;Acute febrile illness, atrial fibrillation with RVR, Acute pulmonary edema, Acute Viral Syndrome Presentation: 06/10 18:42 Chief complaint: EMS states: toned out to patient home for cough, body aches, chills, ld1 weakness, SUNNI lower leg swelling. Coronavirus screen: At this time, the client does not indicate any symptoms associated with coronavirus-19. Ebola Screen: No symptoms or risks identified at this time. Initial Sepsis Screen: Does the patient meet any 2 criteria? No. Patient's initial sepsis screen is negative. Does the patient have a suspected source of infection? No. Patient's initial sepsis screen is negative. Risk Assessment: Do you want to hurt yourself or someone else? Patient reports no desire to harm self or others. Onset of symptoms was June 10, 2024. 18:42 Method Of Arrival: EMS: [facility] ld1 18:42 Acuity: MARIE 4 ld1 Triage Assessment: 18:42 General: Appears in no apparent distress. comfortable, Behavior is calm, cooperative, ld1 appropriate for age. Pain: Denies pain. EENT: No signs and/or symptoms were reported regarding the EENT system. Neuro: Level of Consciousness is awake, alert, obeys commands, Oriented to person, place, time, situation. Cardiovascular: Capillary refill < 3 seconds Patient's skin is warm and dry. Rhythm is atrial fibrillation. Respiratory: Airway is patent Respiratory effort is even, unlabored. Respiratory: Reports cough that is non-productive. GI: Abdomen is round non-distended. : No signs and/or symptoms were reported regarding the genitourinary system. Derm: No signs and/or symptoms reported regarding the dermatologic system. Musculoskeletal: No signs and/or symptoms reported regarding the musculoskeletal system. Historical: - Allergies: 18:39 No Known Allergies; ld1 - Home Meds: 18:39 Xarelto 20 mg Oral tab 1 tab once daily [Active]; ld1 - PMHx: 18:39 Diabetes - NIDDM; High Cholesterol; Hypertension; Hypothyroidism; Myocardial ld1 infarction; Atrial fibrillation; - Immunization history:: Adult Immunizations up to date. - Infectious Disease History:: Denies. - Social history:: Smoking status: Patient denies any tobacco usage or history of. Screenin:47 [facility] ED Fall Risk Assessment (Adult) History of falling in the last 3 months, ld1 including since admission No falls in past 3 months (0 pts) Confusion or Disorientation No (0 pts) Intoxicated or Sedated No (0 pts) Impaired Gait No (0 pts) Mobility Assist Device Used No (0 pt) Altered Elimination No (0 pt) Score/Fall Risk Level 0 - 2 = Low Risk Oriented to surroundings, Hourly rounding (assess needs \T\ fall precautionary measures) done. Abuse screen: Denies threats or abuse. Denies injuries from another. Nutritional screening: No deficits noted. Tuberculosis screening: No symptoms or risk factors identified. Assessment: 18:47 Reassessment: See triage assessment. ld1 19:47 General: Appears in no apparent distress. comfortable, Behavior is calm, cooperative. al5 Pain: Complains of pain in generalized aches. Neuro: Level of Consciousness is awake, alert, obeys commands, Oriented to person, place, time, situation. Cardiovascular: Capillary refill < 3 seconds Patient's skin is warm and dry. Respiratory: Airway is patent Respiratory effort is even, unlabored, Respiratory pattern is regular, symmetrical. GI: No signs and/or symptoms were reported involving the gastrointestinal system. : No signs and/or symptoms were reported regarding the genitourinary system. EENT: No signs and/or symptoms were reported regarding the EENT system. Derm: Skin is intact, is healthy with good turgor, Skin is pink, warm \T\ dry. normal, Reports swelling bilateral lower extremities. Musculoskeletal: Reports swelling bilateral lower extremities. 20:54 Reassessment: Patient appears in no apparent distress at this time. No changes from al5 previously documented assessment. Patient and/or family updated on plan of care and expected duration. Pain level reassessed. Patient is alert, oriented x 3, equal unlabored respirations, skin warm/dry/pink. 22:35 Reassessment: Patient appears in no apparent distress at this time. No changes from al5 previously documented assessment. Patient and/or family updated on plan of care and expected duration. Pain level reassessed. Patient is alert, oriented x 3, equal unlabored respirations, skin warm/dry/pink. 06/11 00:48 Reassessment: Patient appears in no apparent distress at this time. No changes from al5 previously documented assessment. Patient and/or family updated on plan of care and expected duration. Pain level reassessed. Patient is alert, oriented x 3, equal unlabored respirations, skin warm/dry/pink. patient admitted. Vital Signs: 06/10 18:42 BP 126 / 80; Pulse 126; Resp 18; Pulse Ox 97% on R/A; Weight 117.93 kg; Height 5 ft. 11 ld1 in. ; Pain 0/10; 18:54 Temp 99.8; ld1 19:44 BP 110 / 78; Pulse 122; Resp 18; Pulse Ox 97% on R/A; al5 20:52 BP 99 / 85; Pulse 107; Resp 18; Pulse Ox 98% on R/A; al5 22:20 BP 127 / 92; Pulse 125; Resp 18; Pulse Ox 96% on R/A; al5 06/11 00:47 BP 116 / 77; Pulse 102; Resp 16; Pulse Ox 95% ; dd2 06/10 18:42 Body Mass Index 36.26 (117.93 kg, 180.34 cm) ld1 06/10 18:42 Pain Scale: Adult ld1 Nithya Coma Score: 06/10 22:27 Eye Response: spontaneous(4). Motor Response: obeys commands(6). Verbal Response: sp4 oriented(5). Total: 15. ED Course: 18:39 Patient arrived in ED. ld1 18:42 Arm band placed on right wrist. ld1 18:44 Arnav Henley MD is Attending Physician. jj9 18:46 Triage completed. ld1 18:47 Patient has correct armband on for positive identification. Placed in gown. Bed in low ld1 position. Call light in reach. Side rails up X2. Pulse ox on. NIBP on. Door closed. Noise minimized. Warm blanket given. 18:47 No provider procedures requiring assistance completed. ld1 18:55 Tianna Butt, TOMMIE is Primary Nurse. ld1 19:47 Provided Education on: plan of care. al5 20:03 XRAY Chest (1 view) In Process Unspecified. EDMS 20:16 Inserted saline lock: 24 gauge in right antecubital area, using aseptic technique. al5 Blood collected. Flushed with 10 mL NS. 20:40 Attending Physician role handed off by Arnav Henley MD sp4 20:40 Joey Marquis MD is Attending Physician. sp4 22:23 Costa Weeks MD is Hospitalizing Provider. sp4 22:35 Patient admitted, IV remains in place. al5 Administered Medications: 18:54 Drug: Acetaminophen PO 1000 mg PO once Route: PO; ld1 03 00:50 Follow up: Response: No adverse reaction; Temperature is decreased al5 06/10 23:00 Drug: Diltiazem IVP 10 mg IVP once; Over 2 minutes Route: IVP; Site: right antecubital; al5 23:44 Follow up: Response: No adverse reaction; No change in condition al5 23:00 Drug: Diltiazem PO 60 mg PO once Route: PO; al5 23:44 Follow up: Response: No adverse reaction; No change in condition al5 23:00 Drug: Albumin IVPB 25 grams 100 ml IVPB once; (Note: Albumin 25% concentration) Volume: al5 100 ml; Route: IVPB; Site: right antecubital; 06/11 00:49 Follow up: Response: No adverse reaction; IV Status: Completed infusion; IV Intake: al5 100ml 06/10 23:00 Drug: Furosemide IVP 40 mg IVP once; give over 2 minutes Route: IVP; Site: right al5 antecubital; 23:45 Follow up: Response: No adverse reaction al5 23:44 Drug: Dextromethorphan-Guaifenesin PO Liquid 10 mg-100 mg/5 mL 10 ml PO once Route: PO; al5 06/11 00:49 Follow up: Response: No adverse reaction; No adverse reaction; cough decreased al5 06/10 23:44 Drug: Acetaminophen-Codeine PO (300 mg-30 mg) 2 tabs PO once; RASS on ADMIN: Combtv4, al5 Very Agttd3, Agttd2, Rstlss1, AlertClm0, Drwsy-1, Lt Sdtn-2, Mod Sdtn-3, Dp Sdtn-4, UnArsble-5 Route: PO; 06/11 00:49 Follow up: Response: No adverse reaction; Pain is decreased al5 Medication: 06/10 18:47 VIS not applicable for this client. ld1 Intake: 06/11 00:49 IV: 100ml; Total: 100ml. al5 Outcome: 06/10 22:24 Decision to Hospitalize by Provider. sp4 06/11 01:11 Admitted to Med/surg accompanied by tech, family with patient, via stretcher, room 223, al5 with chart, Condition: stable Instructed on the need for admit, 01:12 Patient left the ED. al5 Signatures: Dispatcher [employer] EDMS Tianna Butt RN RN ld1 Joey Marquis MD MD sp4 Anamika Asher RN RN al5 SHARONDA SHABAZZ RN RN dd2 Arnav Henley MD MD jj9 Corrections: (The following items were deleted from the chart) 06/10 18:55 18:42 BP 126 / 80; Pulse 126bpm; Resp 18bpm; Pulse Ox 97% RA; Temp 98.7F Temporal; ld1 117.93 kg; Height 5 ft. 11 in.; BMI: 36.2; Pain 0/10, Adult; ld1
--- NOTE | 2024-06-10 22:24 | EDPHYS ---
Physician Documentation [facility] Name: Alicia Jalloh Age: 68 yrs Sex: Male : 1955 Arrival Date: 06/10/2024 Time: 18:38 Bed 2 Private MD: ED Physician Joey Marquis HPI: 06/10 22:25 This 68 yrs old Male presents to ER via EMS with complaints of Flu Symptoms. sp4 19:12 68-year-old man comes emergency department complaining of fever and not feeling well. jj9 The patient has developed a fever and cough over the last 12 to 15 hours. He has an extensive medical history significant for diabetes, hyperlipidemia, hypertension, atrial fibrillation, CAD, hypothyroidism, and CHF.. 22:25 presents with fever , shortness of breath, and also generalized weakness. Bilateral sp4 lower extremity edema. Patient care was assumed from daytime physician. 23:01 Patient takes Eliquis twice a day.. sp4 Historical: - Allergies: 18:39 No Known Allergies; ld1 - Home Meds: 18:39 Xarelto 20 mg Oral tab 1 tab once daily [Active]; ld1 - PMHx: 18:39 Diabetes - NIDDM; High Cholesterol; Hypertension; Hypothyroidism; Myocardial ld1 infarction; Atrial fibrillation; - Immunization history:: Adult Immunizations up to date. - Infectious Disease History:: Denies. - Social history:: Smoking status: Patient denies any tobacco usage or history of. ROS: 19:14 Constitutional: Fever, cough Eyes: Negative for injury, pain, redness, and discharge, jj9 ENT: Runny nose and congestion Neck: Negative for injury, pain, and swelling, Cardiovascular: Negative for chest pain, palpitations, and edema, Respiratory: Cough Abdomen/GI: Negative for abdominal pain, nausea, vomiting, diarrhea, and constipation, Back: Negative for injury and pain, : Negative for injury, bleeding, discharge, and swelling, MS/Extremity: Leg swelling bilaterally which is chronic Skin: Negative for injury, rash, and discoloration, Neuro: Negative for headache, weakness, numbness, tingling, and seizure, Psych: Negative for depression, anxiety, suicide ideation, homicidal ideation, and hallucinations, Exam: 19:15 Constitutional: This is a well developed, well nourished patient who is awake, alert, jj9 and in no acute distress. Head/Face: Normocephalic, atraumatic. Eyes: Pupils equal round and reactive to light, extra-ocular motions intact. Lids and lashes normal. Conjunctiva and sclera are non-icteric and not injected. Cornea within normal limits. Periorbital areas with no swelling, redness, or edema. ENT: Nares patent. No nasal discharge, no septal abnormalities noted. Tympanic membranes are normal and external auditory canals are clear. Oropharynx with no redness, swelling, or masses, exudates, or evidence of obstruction, uvula midline. Mucous membranes moist. Neck: Trachea midline, no thyromegaly or masses palpated, and no cervical lymphadenopathy. Supple, full range of motion without nuchal rigidity, or vertebral point tenderness. No Meningismus. Chest/axilla: Normal chest wall appearance and motion. Nontender with no deformity. No lesions are appreciated. Cardiovascular: Tachycardic and irregular Respiratory: Lungs have equal breath sounds bilaterally, clear to auscultation and percussion. No rales, rhonchi or wheezes noted. No increased work of breathing, no retractions or nasal flaring. Abdomen/GI: Soft, non-tender, with normal bowel sounds. No distension or tympany. No guarding or rebound. No evidence of tenderness throughout. Skin: Warm, dry with normal turgor. Normal color with no rashes, no lesions, and no evidence of cellulitis. MS/ Extremity: Bilateral leg swelling Neuro: Awake and alert, GCS 15, oriented to person, place, time, and situation. Cranial nerves II-XII grossly intact. Motor strength 5/5 in all extremities. Sensory grossly intact. Cerebellar exam normal. Normal gait. 22:27 ECG was reviewed by the Attending Physician. EKG 2025 atrial fibrillation with RVR rate sp4 103 right bundle branch block otherwise unremarkable. Vital Signs: 18:42 BP 126 / 80; Pulse 126; Resp 18; Pulse Ox 97% on R/A; Weight 117.93 kg; Height 5 ft. 11 ld1 in. ; Pain 0/10; 18:54 Temp 99.8; ld1 19:44 BP 110 / 78; Pulse 122; Resp 18; Pulse Ox 97% on R/A; al5 20:52 BP 99 / 85; Pulse 107; Resp 18; Pulse Ox 98% on R/A; al5 22:20 BP 127 / 92; Pulse 125; Resp 18; Pulse Ox 96% on R/A; al5 06/11 00:47 BP 116 / 77; Pulse 102; Resp 16; Pulse Ox 95% ; dd2 06/10 18:42 Body Mass Index 36.26 (117.93 kg, 180.34 cm) ld1 06/10 18:42 Pain Scale: Adult ld1 Nithya Coma Score: 06/10 22:27 Eye Response: spontaneous(4). Motor Response: obeys commands(6). Verbal Response: sp4 oriented(5). Total: 15. MDM: 18:44 Medical Screening Exam initiated 22:24 Differential diagnosis: viral Infection, bacterial infection, URI, bronchitis, sp4 pneumonia UTI, gastroenteritis. Data reviewed: vital signs, nurses notes, EMS record, old medical records, lab test result(s), EKG, radiologic studies, plain films. Consideration of Admission/Observation Patient was admitted/placed on observation. Escalation of care including admission/observation considered. Management of patient was discussed with the following: Hospitalist: Micky MCHUGH . Motel Operator: Yumiko MCHUGH . ED course: CLINICAL INDICATION: CONGESTION TECHNIQUE: Frontal chest projection is submitted. Examination is limited by patient positioning and technique. COMPARISON: 10/17/2023 FINDINGS: Mild bilateral pulmonary edema is suspected. The heart is moderately enlarged in size. No displaced fractures identified. Sternotomy wires. IMPRESSION: Mild CHF versus volume overload pattern is suspected. . 06/10 19:17 Order name: Basic Metabolic Panel; Complete Time: 22:01 [facility] 06/10 19:17 Order name: CBC with Diff; Complete Time: 22:21 [facility] 06/10 19:17 Order name: Troponin HS; Complete Time: 22:01 [facility] 06/10 19:18 Order name: COVID-19 Ag + Flu A+B Ag; Complete Time: 22:01 [facility] 06/10 21:58 Order name: Manual Differential; Complete Time: 22:21 EDMS 06/10 22:10 Order name: BNP sp4 06/10 22:10 Order name: PT-INR sp4 06/11 00:00 Order name: Urinalysis w/ reflexes EDMS 06/11 00:00 Order name: CBC with Automated Diff EDMS 06/11 00:00 Order name: CBC with Automated Diff EDMS 06/11 00:00 Order name: Comprehensive Metabolic Panel EDMS 06/11 00:00 Order name: Comprehensive Metabolic Panel EDMS 06/10 19:17 Order name: XRAY Chest (1 view); Complete Time: 22:01 jj9 06/11 00:04 Order name: Echo with Doppler EDMS 06/10 19:17 Order name: EKG; Complete Time: 19:18 j06/10 19:17 Order name: Cardiac monitoring; Complete Time: 20:50 j06/10 19:17 Order name: EKG - Nurse/Tech; Complete Time: 20:50 j06/10 19:17 Order name: IV Saline Lock; Complete Time: 20:16 j06/10 19:17 Order name: Labs collected and sent; Complete Time: 20:16 j06/10 19:17 Order name: O2 Per Protocol; Complete Time: 20:16 j06/10 19:17 Order name: O2 Sat Monitoring; Complete Time: 20:16 EC:26 Rate is 103 beats/min. Rhythm is irregularly irregular, A fib with Occasional PVCs. QRS sp4 [place] is Normal. QRS interval is prolonged. QT interval is normal. T waves are Normal. No ST changes noted. Clinical impression: No evidence of ischemia. Interpreted by me. Reviewed by me. Administered Medications: 18:54 Drug: Acetaminophen PO 1000 mg PO once Route: PO; ld1 06/11 00:50 Follow up: Response: No adverse reaction; Temperature is decreased al5 06/10 23:00 Drug: Diltiazem IVP 10 mg IVP once; Over 2 minutes Route: IVP; Site: right antecubital; al5 23:44 Follow up: Response: No adverse reaction; No change in condition al5 23:00 Drug: Diltiazem PO 60 mg PO once Route: PO; al5 23:44 Follow up: Response: No adverse reaction; No change in condition al5 23:00 Drug: Albumin IVPB 25 grams 100 ml IVPB once; (Note: Albumin 25% concentration) Volume: al5 100 ml; Route: IVPB; Site: right antecubital; 06/11 00:49 Follow up: Response: No adverse reaction; IV Status: Completed infusion; IV Intake: al5 100ml 06/10 23:00 Drug: Furosemide IVP 40 mg IVP once; give over 2 minutes Route: IVP; Site: right al5 antecubital; 23:45 Follow up: Response: No adverse reaction al5 23:44 Drug: Dextromethorphan-Guaifenesin PO Liquid 10 mg-100 mg/5 mL 10 ml PO once Route: PO; al5 06/11 00:49 Follow up: Response: No adverse reaction; No adverse reaction; cough decreased al5 06/10 23:44 Drug: Acetaminophen-Codeine PO (300 mg-30 mg) 2 tabs PO once; RASS on ADMIN: Combtv4, al5 Very Agttd3, Agttd2, Rstlss1, AlertClm0, Drwsy-1, Lt Sdtn-2, Mod Sdtn-3, Dp Sdtn-4, UnArsble-5 Route: PO; 06/11 00:49 Follow up: Response: No adverse reaction; Pain is decreased al5 Disposition Summary: 06/10/24 22:24 Hospitalization Ordered Notes: Hospitalization Status: Inpatient Admission sp4 Provider: Costa Weeks Location: Telemetry/[facility] (Inpatient) sp4 Condition: Serious sp4 Problem: new sp4 Symptoms: have improved sp4 Bed/Room Type: Standard sp4 Room Assignment: 223(06/11/24 00:02) rv1 Diagnosis - Acute on chronic diastolic (congestive) heart failure sp4 - Unspecified atrial fibrillation sp4 - Acute febrile illness, atrial fibrillation with RVR, Acute pulmonary edema, Acute sp4 Viral Syndrome Forms: - Medication Reconciliation Form sp4 - SBAR form sp4 - Leadership Thank You Letter sp4 Critical care time excluding procedures: 06/10 22:23 Critical care time: Bedside Care: 36 minutes, Consultation: 12 minutes, Family sp4 Intervention: 12 minutes. Total time: 60 minutes Signatures: Dispatcher [employer] Tianna Pat RN RN ld1 Christal Ibanez1 Joey Marquis MD MD sp4 Anamika Asher RN RN al5 Arnav Henley MD MD jj9 Corrections: (The following items were deleted from the chart) 19:18 19:18 BASIC METABOLIC PANEL+C.LAB.BRZ ordered. EDMS EDMS 19:18 CBC+H.LAB.BRZ ordered. EDMS EDMS 19:18 Troponin High Sensitivity+C.LAB.BRZ ordered. EDMS EDMS 06/11 00:02 06/10 22:24 sp4 rv1
[2024-06-10] MEDS: DILTIAZEM HCL 60 MG TAB ONE (22:26)
[2024-06-10] MEDS ORDERED: dilTIAZem HCL 25 MG/5 ML VIAL IV ONE (22:30)
[2024-06-10] MEDS ORDERED: FUROSEMIDE 40 MG/4 ML VIAL ONE (22:30)
[2024-06-10] MEDS ORDERED: ALBUMIN HUMAN 25% 100 ML IV ONE (22:30)
[2024-06-10 22:50] LABS: PT Prothrombin Time 17.8 SECONDS (10-13.0); Protime INR 1.6
[2024-06-10] MEDS ORDERED: GUAIFENESIN/DM 5 ML UCUP ONE (23:37)
[2024-06-10] MEDS ORDERED: CODEINE 30MG/APAP 300MG TAB ONE (23:37)
--- NOTE | 2024-06-10 23:50 | P.HP ---
Certification for Inpatient Patient admitted to: Inpatient With expected LOS: >2 Midnights Practitioner: I am a practitioner with admitting privileges, knowledge of patient current condition, hospital course, and medical plan of care. Services: Services provided to patient in accordance with Admission requirements found in Title 42 Section 412.3 of the Code of Federal Regulations Patient History Date of Service: 06/10/24 Reason for admission: Palpitation History of Present Illness: 68-year-old male with past medical history of hypertension, hyperlipidemia, diabetes, hypothyroidism, CAD status post CABG, history of atrial fibrillation came to ER with generalized weakness and fatigue associated with shortness of breath and palpitation which has been going on for the last 2 days and has been progressively getting worse. Associated with subjective fever. Associated with cough as well which is nonproductive. No nausea vomiting diarrhea. Patient denies any chest pain but associated with shortness of breath and chest discomfort. Shortness of breath worse with minimal exertion. Patient was assessed in the ER and is admitted for further management of A-fib with RVR and acute on chronic CHF Allergies No Known Allergies Allergy (Verified 10/17/23 09:28) Home medications list reviewed: Yes - Past Medical/Surgical History Has patient received pneumonia vaccine in the past: Yes Diabetic: Yes Past Medical History: Reviewed- Non-Contributory -: Coronary artery disease -: hypertension -: diabetes -: dyslipidemia Past Surgical History: Reviewed- Non-Contributory -: Coronary artery bypass grafting -: coronary artery stent x5 - Family History Family History: Reviewed- Non-Contributory - Social History Smoking Status: Never smoker Alcohol use: No CD- Drugs: No Review of Systems 10-point ROS is otherwise unremarkable Physical Examination - Vital Signs Temperature: 98.2 F Blood Pressure: 118/70 Pulse: 106 Respirations: 19 Pulse Ox (%): 94 - Physical Exam General: Alert, Oriented x3, Moderate distress HEENT: Atraumatic, Normocephalic Neck: Supple Respiratory: Diminished, Crackles/rales Cardiovascular: Irregular heart rate/rhythm Capillary refill: <2 Seconds Gastrointestinal: Soft and benign, W/out hepatosplenomegaly Musculoskeletal: No clubbing Integumentary: No rashes, No tenderness/swelling Neurological: Normal speech, Normal strength at 5/5 x4 extr, Normal affect Lymphatics: No axilla or inguinal lymphadenopathy - Studies Laboratory Data (last 24 hrs) 06/10/24 06/10/24 06/10/24 22:30 20:14 20:14 WBC 7.20 Hgb 10.3 L Hct 30.5 L Plt Count 167 PT 17.8 H INR 1.60 Sodium 136 Potassium 3.9 BUN 16 Creatinine 1.28 Glucose 149 H Assessment and Plan - Problems (Diagnosis) (1) A-fib Current Visit: Yes Status: Acute - Plan A-fib with RVR Monitor closely on telemetry Rate control Cardiology consulted Will continue Xarelto Continue home medications and titrate as needed Acute on chronic CHF possibly systolic/diastolic Monitor closely on telemetry Started on diuresis X-ray findings consistent with CHF Oxygen supplementation Will try to wean down oxygen requirement Continue home medications Titrate as needed Will obtain an echocardiogram Cardiology consult Hypertension Antihypertensives titrated Continue home medications and titrate as needed Hyperlipidemia Continue statin CAD status post CABG and stents Medical management for now Will consult cardiology Diabetes Insulin sliding scale Accu-Chek before every meal and at bedtime GI/DVT prophylaxis Advanced directive full code Discharge Plan: Home Plan to discharge in: 48 Hours - Advance Directives Does patient have a Living Will: No Does patient have a Durable POA for Healthcare: No - Code Status/Comfort Care Code Status: Full Code Time Spent Managing Pts Care (In Minutes): 54
[2024-06-11] MEDS ORDERED: D10W 125 ML IV PRN
[2024-06-11] MEDS ORDERED: GLUCAGON 1 MG/VIAL IM PRN
[2024-06-11] MEDS: FUROSEMIDE 20 MG/ 2ML VIAL IV SCH (00:01)
[2024-06-11] MEDS ORDERED: METOPROLOL TARTRATE 5 MG/5 ML INJ IV PRN (00:01)
[2024-06-11 02:41] LABS: Specific Gravity 1.013 (1.005-1.030); Sqamous Epithelial None Seen /HPF (None Seen); Urine Bacteria <20 /HPF (<20); Urine Bilirubin NEGATIVE (Negative); Urine Blood Trace (Negative); Urine Clarity Extremely Turbid (Clear); Urine Color Light-Yellow (Yellow); Urine Culture Reflex Order REFLEXED; Urine Glucose NEGATIVE (Negative); Urine Ketones NEGATIVE (Negative); Urine Microscopic Reflex YN ORDER UMIC; Urine Mucus Slight /HPF (None Seen); Urine Nitrite NEGATIVE (Negative); Urine Protein TRACE (Negative); Urine RBC 21-50 /HPF (None Seen); Urine Urobilinogen Normal (Normal); Urine WBC >50 /HPF (<5); Urine pH 5.5 (5.0-7.0)
[2024-06-11 06:12] LABS: Absolute Lymphocytes (CBC) 0.4 K/uL (0.7-4.9); Absolute Monocytes 0.6 K/uL (0.1-1.3); Basophils % 0.3 % (0-1.3); Hematocrit 29.1 % (39.6-49.0); Hemoglobin 9.9 g/dL (13.6-17.9); Lymphocytes % 6.9 % (15.3-44.8); MCH 29.6 pg (27.0-35.0); MPV 7.6 fL (7.6-11.3); Monocytes % 9.7 % (3.3-12.3); Neutrophils % 83.1 % (41.7-73.7); Nucleated Red Blood Cells % 0.1 % (0-0); Platelets 151 thou/uL (152-406); RBC Red Blood Cell Count 3.35 M/uL (4.33-5.43); Red Cell Distribution Width 16.3 % (12.1-15.2)
[2024-06-11 06:20] LABS: AST/SGOT 16 U/L (15-37); Albumin 3.3 g/dL (3.4-5.0); Albumin/Globulin Ratio 0.9 (1.1-1.8); Alkaline Phosphatase 91 U/L (45-117); BUN Blood Urea Nitrogen 17 mg/dL (7-18); Bicarbonate 24 mEq/L (21-32); Bilirubin Total 3.2 mg/dL (0.2-1.0); Globulin 3.7 g/dL (2.3-3.5); Glomerular Filtration Rate 50 ml/min (=/>90); Glucose Level 156 mg/dL (74-106); Sodium Level 135 mEq/L (136-145)
[2024-06-11 06:21] LABS: ALT/SGPT < 14 U/L (16-61)
[2024-06-11] MEDS: INSULIN REGULAR (HUMAN) 100 UNIT/ML SQ SCH (09:04)
[2024-06-11] MEDS: CEFTRIAXONE 1,000 MG in NA CHLORIDE 0.9% 50 ML IVPB SCH (09:05)
[2024-06-11] MEDS: ACETAMINOPHEN 325 MG TABLET PO PRN (09:05)
[2024-06-11] MEDS: ENOXAPARIN 40 MG/0.4 ML SQ SCH (09:05)
[2024-06-11] MEDS: IBUPROFEN 400 MG TAB PO ONE (11:05)
[2024-06-11] MEDS: BENZONATATE 100 MG CAP PO PRN (11:05)
--- NOTE | 2024-06-11 11:51 | P.CNS ---
Date of Consult: 06/11/24 Chief Complaint: Palpitation History of Present Illness: Patient with PMH of CAD s/p CABG with only patent MALONE-LAD, atrial fibrillation, chronic combined heart failure, presented with generalized weakness, decrease PO intake and swelling in bilateral lower extremities. also report fever and palpitations, denies chest pain. Allergies No Known Allergies Allergy (Verified 10/17/23 09:28) Home medications list reviewed: Yes Home Medications: Fluoxetine HCl 20 mg PO DAILY 06/11/24 Furosemide [Lasix] 40 mg PO BIDL 06/11/24 Isosorbide Mononitrate [Isosorbide Mononitrate ER] 30 mg PO DAILY 06/11/24 Metoprolol Succinate [Toprol Xl] 25 mg PO DAILY 06/11/24 Ranolazine [Ranolazine ER] 500 mg PO Q12H 06/11/24 Spironolactone [Aldactone] 12.5 mg PO DAILY 06/11/24 - Past Medical/Surgical History Diabetic: Yes -: Coronary artery disease -: hypertension -: diabetes -: dyslipidemia -: Coronary artery bypass grafting -: coronary artery stent x5 - Family History Father Medical History: Heart disease, Hypertension Mother Medical History: Heart disease, Stroke - Social History Smoking Status: Former smoker Alcohol use: No CD- Drugs: No Caffeine use: No Place of Residence: Home Review of Systems 10-point ROS is otherwise unremarkable Physical Examination Temp Pulse Resp BP Pulse Ox 102.6 F H 110 H 30 H 138/66 93 06/11/24 11:05 06/11/24 08:00 06/11/24 08:00 06/11/24 08:00 06/11/24 08:00 General: Alert, In no apparent distress HEENT: Atraumatic, PERRLA, Mucous membr. moist/pink, EOMI, Sclerae nonicteric Neck: Supple, 2+ carotid pulse no bruit, No LAD, Without JVD or thyroid abnormality Respiratory: Clear to auscultation bilaterally, Normal air movement Cardiovascular: Edema, Irregular heart rate/rhythm Gastrointestinal: Normal bowel sounds, No tenderness Musculoskeletal: No tenderness Integumentary: No rashes Neurological: Normal gait, Normal speech, Normal tone, Normal affect Lymphatics: No axilla or inguinal lymphadenopathy Laboratory Data (last 24 hrs) 06/10/24 06/10/24 06/10/24 22:30 20:14 20:14 WBC 7.20 Hgb 10.3 L Hct 30.5 L Plt Count 167 PT 17.8 H INR 1.60 Sodium 136 Potassium 3.9 BUN 16 Creatinine 1.28 Glucose 149 H - Problems (1) Acute on chronic combined systolic (congestive) and diastolic (congestive) heart failure Current Visit: Yes Status: Acute Plan: would recommend increasing lasix to 40 mg IV BID continue to monitor input and output and electrolytes. (2) A-fib Current Visit: Yes Status: Acute Plan: start patient on Amiodarone 150 mg IV x 1 then continue drip at 1 mg/min for 6 hours followed by 0.5 mg/min for 18 hours Heparin for anticoagulation. (3) CAD (coronary artery disease) of artery bypass graft Current Visit: No Status: Acute Plan: Patient with known complex CAD, with only patent MALONE to LAD with collaterals, no option for stent or re do CABG. continue to monitor.
[2024-06-11] MEDS ORDERED: AMIODARONE HCL 450 MG in D5W 241 ML IV SCH (14:00)
[2024-06-11] MEDS: AMIODARONE HCL 900 MG in Dextrose 5%-Water 482 ML IV SCH ×2 (14:00→14:04)
--- NOTE | 2024-06-11 14:09 | ECHO ---
HEIGHT: 6 ft 0 in WEIGHT: 263 lb 0 oz DATE OF STUDY: 06/11/[address]: Cb Weeks DO 2-DIMENSIONAL: YES M.MODE: YES DOPPLER: YES COLOR FLOW: YES TDS: YES PORTABLE: NO DEFINITY: NO BUBBLE STUDY: NO DIAGNOSIS: ATRIAL FIBRILLATION/ CONGESTIVE HEART FAILURE CARDIAC HISTORY: CATHERIZATION: YES SURGERY: YES PROSTHETIC VALVE: NO PACEMAKER: NO MEASUREMENTS (cm) DIASTOLIC (NORMALS) SYSTOLIC (NORMALS) IVSd 1.2 (0.6-1.2) LA Diam (1.9-4.0) LVEF 35-40% LVIDd 6.4 (3.5-5.7) LVIDs 5.0 (2.0-3.5) %FS 21% LVPWd 1.0 (0.6-1.2) Ao Diam 3.2 (2.0-3.7) 2 DIMENSIONAL ASSESSMENT: RIGHT ATRIUM: NORMAL LEFT ATRIUM: SEVERELY DILATED RIGHT VENTRICLE: NORMAL LEFT VENTRICLE: SEVERELY DILATED TRICUSPID VALVE: MILD TRICUSPID REGURGITATION MITRAL VALVE: NORMAL PULMONIC VALVE: NORMAL AORTIC VALVE: MILD AORTIC STENOSIS PERICARDIAL EFFUSION: NONE AORTIC ROOT: NORMAL LEFT VENTRICULAR WALL MOTION: MODERATE GLOBAL HYPOKINESIS. DOPPLER/COLOR FLOW: DIASTOLIC DYSFUNCTION. COMMENTS: 1. MODERATE GLOBAL HYPOKINESIS, EJECTION FRACTION 35-40%, MODERATELY REDUCED LEFT VENTRICULAR SYSTOLIC FUNCTION. 2. DIASTOLIC DYSFUNCTION. TECHNOLOGIST: CRISTAL BURKS
[2024-06-11] MEDS: AMIODARONE HCL 150 MG in D5W 100 ML IV STA (14:54)
[2024-06-11 15:33] LABS: PT Prothrombin Time 21.2 SECONDS (10-13.0); PTT, Activated Partial Thromb 38.4 SECONDS (27.2-37.4); Protime INR 1.92
[2024-06-11] MEDS: HEPARIN/D5W 25,000 UNIT/500 ML BAG IV SCH (16:03)
--- NOTE | 2024-06-11 16:36 | RAD REPORT ---
EXAM: CT Chest For Pe Angio TECHNIQUE: CT angiogram of the chest was performed following intravenous contrast administration, inc luding sagittal and coronal as well as maximum intensity projection reformats. One or more of the following dose reduction techniques were used: Automated exposure control, adjustment of the mA and k V according to patient size, and iterative reconstruction. Unless otherwise specified, incidental findings do not require dedicated imaging follow-up. INDICATION: HS MAIN SOB Y COMPARISON: 06/10/2024 chest radiograph. FINDINGS: LINES/TUBES: None. PULMONARY ARTERIES: Main pulmonary arteries are normal in caliber. No filling defects within the pul monary arteries to suggest pulmonary embolus, although motion artifact limits evaluation of the lower lobe branches bilaterally. LUNGS AND AIRWAYS: Central airways are patent. Groundglass opacities in the left lingula. Mosaic atte nuation throughout the lungs, could relate to under aeration versus vascular congestion. PLEURA: Small left pleural effusion tracking along the fissure. Calcified pleural plaque on the left. No Pneumothorax. HEART AND MEDIASTINUM: The visualized thyroid gland is normal. No mediastinal, hilar, or axillary lym phadenopathy. Heart is moderately enlarged. No pericardial effusion. Mild fusiform aneurysmal dilation of the ascending thoracic aorta measuring 4.2 cm in caliber. Sequelae of median sternotomy. Potential wall thickening of the distal esophagus SOFT TISSUES AND BONES: No acute osseous abnormality. No significant soft tissue finding. UPPER ABDOMEN: Unremarkable. IMPRESSION: No evidence of acute central pulmonary emboli. Small left pleural effusion. Groundglass opacities in the left lingula may relate to changes of edema versus a mild infectious or inflammatory process. Mosaic attenuation throughout the lungs could relate to under aeration versus sequelae of vascular co ngestion. Cardiomegaly. Mild fusiform aneurysmal dilation of the ascending thoracic aorta.
[2024-06-11] MEDS: FUROSEMIDE 40 MG/4 ML VIAL IV SCH (17:00)
[2024-06-11] MEDS ORDERED: ALBUTEROL 2.5 MG/3 ML NEB SOL NEB SCH (19:00)
--- NOTE | 2024-06-11 19:31 | RAD REPORT ---
EXAMINATION: US RETROPERITONEUM CLINICAL INDICATION: [facility] bloody urine TECHNIQUE: Real-time ultrasonography of the abdomen was performed. COMPARISON: CT abdomen and pelvis 04/03/2019 FINDINGS: Limited exam due to poor penetration. RIGHT KIDNEY: Right renal length measurement: 10.0 cm. Normal in echogenicity and size. No calculus, solid mass or hydronephrosis. LEFT KIDNEY: Left renal length measurement: 10.1 cm. Normal in echogenicity and size. No calculus, so lid mass or hydronephrosis. URINARY BLADDER: Normal. ADDITIONAL FINDINGS: None. IMPRESSION: No acute or significant abnormalities allowing for limitations mentioned above.
--- NOTE | 2024-06-11 19:44 | P.PN ---
Date of Service: 06/11/24 Subjective Appeared ill this morning, He was fatigued but afternoon rounds he was awake and feeling better Started a heparin gtt then had blood in his urine Renal ultrasound ordered ROS 10 point ROS as noted above, otherwise negative Physical Exam General: Alert, Oriented x3, NAD HEENT: Atraumatic, Normocephalic Respiratory: Diminished, Crackles/rales, on 2 LNC Cardiovascular: Irregular heart rate/rhythm Capillary refill: <2 Seconds Gastrointestinal: Soft and benign, active bowel sounds Musculoskeletal: No clubbing Integumentary: No rashes Neurological: Normal speech, Normal strength at 5/5 x4 extr Lymphatics: No axilla or inguinal lymphadenopathy Vitals Reviewed Problem list SIRS 2/2 UTI Acute on chronic CHF possibly systolic/diastolic A-fib with RVR CAD status post CABG and stents Hypertension Hyperlipidemia Diabetes Assessment and Plan SIRS 2/2 UTI -Sepsis criteria febrile, HR 107, RR 30 -Cefepime and vancomycin started -tylenol/ibuprophen -lactic pending -blood cultures/urine cultures pending -renal ultrasound to address blood in urine Acute on chronic CHF possibly systolic/diastolic A-fib with RVR CAD status post CABG and stents -Monitor closely on telemetry -Rate control -Cardiology consulted- amio and heparin gtt -Monitor closely on telemetry -continue diuresis -X-ray findings consistent with CHF -Oxygen supplementation, on 2 LNC, attempt to wean -echocardiogram results pending -Blood in urine today Hypertension -Antihypertensives titrated -Continue home medications and titrate as needed Hyperlipidemia -Continue statin Diabetes -Insulin sliding scale -Accu-Chek before every meal and at bedtime DVT ppx heparin gtt, hold xarelto Full code LOS 2-3 days <Linda Zarate - Last Filed: 06/11/24 19:47> I have personally seen and evaluated the patient. I have reviewed and agree with the history, physical exam findings, assessment, and plan of Herlinda Zarate. [employer]ES SAMPLE [employer]KER. <Gregorio Carrillo - Last Filed: 06/11/24 20:24>
[2024-06-11] MEDS: CEFEPIME 1 GM in NA CHLORIDE 0.9% 100 ML IV SCH (21:28)
[2024-06-11] MEDS: LEVALBUTEROL 0.63 MG/3 ML NEB NEB SCH (21:53)
[2024-06-11] MEDS: IPRATROPIUM BROM 0.5MG/2.5ML NEB SCH (21:53)
[2024-06-11] MEDS: VANCOMYCIN 2 GM in NA CHLORIDE 0.9% 500 ML IVPB SCH (22:10)
[2024-06-12] MEDS: VANCOMYCIN 2 GM in NA CHLORIDE 0.9% 500 ML IVPB SCH (08:00)
[2024-06-12] MEDS: FUROSEMIDE 40 MG/4 ML VIAL IV SCH (09:07)
[2024-06-12] MEDS: Mupirocin NASAL 2 APPL/1 GM TUBE NAS SCH (09:08)
--- NOTE | 2024-06-12 11:15 | P.PN ---
Subjective Date of Service: 06/12/24 Chief Complaint: Palpitation Subjective: No new changes Review of Systems 10-point ROS is otherwise unremarkable Physical Examination - Vital Signs Temperature: 98.4 F Blood Pressure: 130/85 Pulse: 117 Respirations: 36 Pulse Ox (%): 97 - Physical Exam General: Alert, In no apparent distress HEENT: Atraumatic, PERRLA, EOMI Neck: Supple, JVD not distended Respiratory: Clear to auscultation bilaterally, Normal air movement Cardiovascular: Edema, Irregular heart rate/rhythm Gastrointestinal: Normal bowel sounds, No tenderness Musculoskeletal: No tenderness Integumentary: No rashes Neurological: Normal speech, Normal tone, Normal affect Lymphatics: No axilla or inguinal lymphadenopathy - Studies Medications List Reviewed: Yes Assessment And Plan - Current Problems (Diagnosis) (1) Acute on chronic combined systolic (congestive) and diastolic (congestive) heart failure Current Visit: Yes Status: Acute Plan: would recommend changing to lasix drip at 10 mg/hr continue to monitor input and output and electrolytes. (2) A-fib Current Visit: Yes Status: Acute Plan: continue amiodarone drip at 0.5 mg/min, patient breathing still labored, so it will be risky to do VITOR DCCV, will re evaluate in am. Heparin for anticoagulation. (3) CAD (coronary artery disease) of artery bypass graft Current Visit: No Status: Acute Plan: Patient with known complex CAD, with only patent MALONE to LAD with collaterals, no option for stent or re do CABG. continue to monitor.
[2024-06-12 13:44] LABS: Anion Gap 8.5 mEq/L (5.0-15.0); Magnesium 1.7 mg/dL (1.6-2.4); Phosphorus 2.4 mg/dL (2.5-4.9); Potassium 3.5 mEq/L (3.5-5.1)
[2024-06-12 13:45] LABS: Troponin High Sensitivity 212.6 pg/mL (<58.9)
[2024-06-12] MEDS: POTASS/SODIUM PHOSPHATE 1 PKT POWD.PACK PO SCH (14:45)
[2024-06-12] MEDS: AMIODARONE HCL 900 MG in Dextrose 5%-Water 482 ML IV SCH (14:46)
--- NOTE | 2024-06-12 17:10 | P.PN ---
Subjective Date of Service: 06/12/24 Chief Complaint: Palpitation Subjective: Tolerating diet, New changes, C/O voiced (Acute chest pain) <IgnacioСветлана - Last Filed: 06/12/24 17:17> Date of Service: 06/12/24 <Gregorio Carrillo - Last Filed: 06/12/24 17:26> Review of Systems 10-point ROS is otherwise unremarkable General: Weakness Respiratory: Shortness of Breath, SOB with Excertion Cardiovascular: Chest Pain, Edema Gastrointestinal: Abdominal Pain, Constipation <IgnacioСветлана - Last Filed: 06/12/24 17:17> Physical Examination - Vital Signs Temperature: 98.1 F Blood Pressure: 118/72 Pulse: 97 Respirations: 32 Pulse Ox (%): 93 - Physical Exam General: Alert, In no apparent distress HEENT: Atraumatic, PERRLA, EOMI Neck: Supple, JVD not distended Respiratory: Normal air movement, Crackles/rales Cardiovascular: Normal S1 S2, Edema, Irregular heart rate/rhythm Capillary refill: <2 Seconds Gastrointestinal: Hypoactive, Non-distended, No tenderness Musculoskeletal: No tenderness Integumentary: No rashes Neurological: Normal speech, Normal tone, Normal affect Lymphatics: No axilla or inguinal lymphadenopathy External genitalia: Deferred Rectal: Deferred - Studies Medications List Reviewed: Yes <IgnacioСветлана - Last Filed: 06/12/24 17:17> Assessment And Plan - Plan Urinary Tract Infection Sepsis, resolved -Continue Cefepime for now -Afebrile, lactic 1.7, WBC 6.1 -blood cultures/urine cultures pending final result -Renal ultrasound to address blood in urine; no acute findings Acute on chronic CHF possibly systolic/diastolic A-fib with RVR CAD status post CABG and stents Chest pain -Afib-rate controlled -Cardiology consulted- Updated recs to continue amio/heparin gtt and to start Lasix gtt @10mg/hr. Patient breathing still labored, so it will be risky to do VITOR DCCV, re-evaluate in am -Consider starting Lasix gtt, however patient with new reported chest pain and excessive urinary output after increase in BID IV Lasix, re-evaluate in AM for continued need -Monitor closely on telemetry -CXR reviewed consistent with CHF -Strict I&O -Oxygen supplementation PRN, currently on 2 LNC, continue to wean -Echo completed with EF 35-40% -Fluid restriction 1000mL Hypertension -Continue home medications and titrate as needed -Continue to monitor BP closely per unit protocol Hyperlipidemia -Continue Atorvastatin Diabetes -Sliding scale insulin -Accu-Check ACHS -Carb controlled diet DVT Ppx: Heparin gtt, hold Xarelto Code Status: Full code Discharge Plan: Home Plan to discharge in: 48 Hours - Code Status/Comfort Care Code Status Assessed: Yes (FULL CODE) <Светлана Ignacio - Last Filed: 06/12/24 17:17> Physician Review: Patient Assessed, Agree with Above Assessment and Plan <Gregorio Carrillo - Last Filed: 06/12/24 17:26>
[2024-06-12] MEDS: FUROSEMIDE 100 MG in NA CHLORIDE 0.9% 90 ML IV SCH (18:14)
[2024-06-12] MEDS: CEFEPIME 2 GM in NA CHLORIDE 0.9% 100 ML IV SCH (20:43)
[2024-06-12] MEDS ORDERED: VANCOMYCIN 2 GM in NA CHLORIDE 0.9% 500 ML IVPB SCH (21:00)
[2024-06-13 06:23] LABS: Anion Gap 7.7 mEq/L (5.0-15.0)
[2024-06-13 06:24] LABS: Magnesium 1.7 mg/dL (1.6-2.4); Potassium 3.7 mEq/L (3.5-5.1)
[2024-06-13] MEDS: MAGNESIUM SULFATE 1 gm IVPB 1 GM/100 ML BAG IV ONE (07:19)
[2024-06-13] MEDS: POTASSIUM CL SA 10 MEQ TAB PO ONE (08:23)
[2024-06-13] MEDS: GUAIFENESIN/DM 5 ML UCUP PO PRN (08:23)
--- NOTE | 2024-06-13 09:47 | P.PN ---
Subjective Date of Service: 06/13/24 Chief Complaint: Palpitation Subjective: No new changes, C/O voiced (Patient reports that his breathing has slightly improved after starting Lasix gtt yesterday. Reports having some constipation and little PO intake at this time.) Review of Systems 10-point ROS is otherwise unremarkable Respiratory: Cough, Dry, Shortness of Breath, SOB with Excertion, Wheezing Cardiovascular: Chest Pain (chest pressure with coughing ) Gastrointestinal: Constipation Physical Examination - Vital Signs Temperature: 97.6 F Blood Pressure: 94/66 Pulse: 88 Respirations: 15 Pulse Ox (%): 95 - Physical Exam General: Alert, In no apparent distress HEENT: Atraumatic, PERRLA, EOMI Neck: Supple, JVD not distended Respiratory: Normal air movement, Crackles/rales, Other (currently on 3L/NC ) Cardiovascular: Normal S1 S2, Irregular heart rate/rhythm (Afib rate controlled ) Capillary refill: <2 Seconds Gastrointestinal: Hypoactive, Non-distended, No tenderness Musculoskeletal: No tenderness Integumentary: No rashes Neurological: Normal speech, Normal tone, Normal affect Lymphatics: No axilla or inguinal lymphadenopathy - Studies Medications List Reviewed: Yes Assessment And Plan - Plan Urinary Tract Infection Sepsis, resolved -Continue Cefepime for now -Afebrile, lactic 1.7 -blood cultures without growth X24hrs -urine cultures with entero leeann, amoxicillin ordered -Renal ultrasound to address blood in urine; no acute findings Acute on chronic CHF possibly systolic/diastolic A-fib with RVR CAD status post CABG and stents Chest pain -Afib-rate controlled -Cardiology consulted- Updated recs 06/13: continue lasix drip at 10 mg/hr, may slows down to 5 mg/hr TOMORROW IF kidney function is worsening switch amiodarone drip to amiodarone 200 mg po BID patient breathing still labored, so it will be risky to do VITOR DCCV, will re evaluate on Sunday. Stop Heparin drip and start patient on Eliquis 5 mg po BID. -Lasix gtt started on 06/12 -Monitor closely on telemetry -Initial CXR reviewed consistent with CHF -Strict I&O -Echo completed with EF 35-40% -Fluid restriction 1000mL Hypertension -Continue home medications and titrate as needed -Continue to monitor BP closely per unit protocol Hyperlipidemia -Continue Atorvastatin Diabetes -Sliding scale insulin -Accu-Check ACHS -Carb controlled diet Hypoxia Dry cough -06/13: Repeat CXR ordered -Tessalon pearls discontinued; Robutussin DM ordered q6h PRN -Oxygen supplementation PRN, currently on 3 LNC, continue to wean -Breathing Txs Constipation -Reports no BM since prior to admission -Senna BID for now -PT consult ordered -Encourage oral intake DVT Ppx: Heparin gtt, hold Xarelto Code Status: Full code Discharge Plan: Home Plan to discharge in: 48 Hours - Code Status/Comfort Care Code Status Assessed: Yes (FULL CODE) Physician Review: Patient Assessed, Agree with Above Assessment and Plan
--- NOTE | 2024-06-13 10:30 | RAD REPORT ---
EXAMINATION: ONE VIEW CHEST XR CLINICAL INDICATION: R/o PNA TECHNIQUE: Frontal chest projection is submitted. Examination is limited by patient positioning and t echnique. COMPARISON: 06/10/2024 FINDINGS: Bilateral pulmonary opacities appear slightly worse in since comparative study suggesting pulmonary e concha or infection/bronchitis. The heart is mildly to moderately enlarged. No displaced fractures identified. Sternotomy wires present. IMPRESSION: Mild worsening in interstitial lung opacities since comparison study as detailed.
[2024-06-13] MEDS: DOCUSATE NA/SENNA CONC 1 TAB PO SCH (13:57)
[2024-06-13] MEDS: AMOXICILLIN TRIHYDR 250 MG CAP PO SCH (13:57)
--- NOTE | 2024-06-13 14:08 | P.PN ---
Subjective Date of Service: 06/13/24 Chief Complaint: Palpitation Subjective: No new changes Review of Systems 10-point ROS is otherwise unremarkable Physical Examination - Vital Signs Temperature: 98.6 F Blood Pressure: 109/58 Pulse: 88 Respirations: 14 Pulse Ox (%): 97 - Physical Exam General: Alert, In no apparent distress HEENT: Atraumatic, PERRLA, EOMI Neck: Supple, JVD not distended Respiratory: Normal air movement, Crackles/rales Cardiovascular: Edema, Irregular heart rate/rhythm Gastrointestinal: Normal bowel sounds, No tenderness Musculoskeletal: No tenderness Integumentary: No rashes Neurological: Normal speech, Normal tone, Normal affect Lymphatics: No axilla or inguinal lymphadenopathy - Studies Medications List Reviewed: Yes Assessment And Plan - Current Problems (Diagnosis) (1) Acute on chronic combined systolic (congestive) and diastolic (congestive) heart failure Current Visit: Yes Status: Acute Plan: continue lasix drip at 10 mg/hr, may slows down to 5 mg/hr TOMORROW IF kidney function is worsening continue to monitor input and output and electrolytes. (2) A-fib Current Visit: Yes Status: Acute Plan: switch amiodarone drip to amiodarone 200 mg po BID patient breathing still labored, so it will be risky to do VITOR DCCV, will re evaluate on Sunday. Stop Heparin drip and start patient on Eliquis 5 mg po BID. (3) CAD (coronary artery disease) of artery bypass graft Current Visit: No Status: Acute Plan: Patient with known complex CAD, with only patent MALONE to LAD with collaterals, no option for stent or re do CABG. continue to monitor. Physician Review: Patient Assessed, Agree with Above Assessment and Plan
--- NOTE | 2024-06-13 14:50 | EKG ---
Test Date: 2024-06-10 Test Time: 20:26:55 Sample Taker Operator: AUGUSTIN MEASUREMENT RESULTS: Intervals: Rate: 103 NM: QRSD: 168 QT: 396 QTc: 518 [place]: P: NM: QRS: 231 T: -18 INTERPRETIVE STATEMENTS: Atrial fibrillation with rapid ventricular response with premature ventricular or aberrantly conducted complexes Right bundle branch block Possible Inferior infarct, age undetermined Abnormal ECG Compared to ECG 10/17/2023 09:50:58 Ventricular premature complex(es) now present Myocardial infarct finding still present Electronically Signed On 06-13-24 14:43:21 CDT by Gavin Calderon
[2024-06-13] MEDS: APIXABAN 5 MG TABLET PO SCH (21:06)
[2024-06-13] MEDS: AMIODARONE HCL 200 MG TAB PO SCH (21:06)
[2024-06-14 04:38] LABS: Anion Gap 8.1 mEq/L (5.0-15.0); Magnesium 1.8 mg/dL (1.6-2.4); Phosphorus 2.6 mg/dL (2.5-4.9); Potassium 3.1 mEq/L (3.5-5.1)
--- NOTE | 2024-06-14 07:53 | P.PN ---
Subjective Date of Service: 06/14/24 Chief Complaint: Palpitation Subjective: No new changes, C/O voiced (Reports slight improvement in breathing and swelling in lowering extremeties from yesterday. Denies new c/o) Review of Systems 10-point ROS is otherwise unremarkable General: Weakness Respiratory: Shortness of Breath, SOB with Excertion Cardiovascular: Edema Physical Examination - Vital Signs Temperature: 98.4 F Blood Pressure: 119/66 Pulse: 101 Respirations: 18 Pulse Ox (%): 94 - Physical Exam General: Alert, In no apparent distress HEENT: Atraumatic, PERRLA, EOMI Neck: Supple, JVD not distended Respiratory: Normal air movement, Crackles/rales, Other (3L/NC ) Cardiovascular: Irregular heart rate/rhythm (A-fib) Gastrointestinal: Normal bowel sounds, No tenderness Musculoskeletal: No tenderness Integumentary: No rashes Neurological: Normal speech, Normal tone, Normal affect Lymphatics: No axilla or inguinal lymphadenopathy External genitalia: Deferred Rectal: Deferred - Studies Medications List Reviewed: Yes Assessment And Plan - Plan Urinary Tract Infection Sepsis, resolved -Afebrile, lactic 1.7 -blood cultures without growth X24hrs -urine cultures with entero leeann, amoxicillin ordered -Renal ultrasound to address blood in urine; no acute findings Acute on chronic CHF possibly systolic/diastolic A-fib with RVR CAD status post CABG and stents Chest pain -Afib-rate controlled -Cardiology consulted- Updated recs 06/13: continue lasix drip at 10 mg/hr, may slows down to 5 mg/hr TOMORROW IF kidney function is worsening switch amiodarone drip to amiodarone 200 mg po BID patient breathing still labored, so it will be risky to do VITOR DCCV, will re evaluate on Sunday. Stop Heparin drip and start patient on Eliquis 5 mg po BID. -06/14: Lasix gtt discontinued and patient started on Lasix 40mg BID -Monitor closely on telemetry -Initial CXR reviewed consistent with CHF -Strict I&O -Echo completed with EF 35-40% -Fluid restriction 1000mL Hypertension -Continue home medications and titrate as needed -Continue to monitor BP closely per unit protocol Hyperlipidemia -Continue Atorvastatin Diabetes -Sliding scale insulin -Accu-Check ACHS -Carb controlled diet Hypoxia Dry cough -06/13: Repeat CXR ordered: Mild worsening in interstitial lung opacities -Tessalon pearls discontinued; Robutussin DM ordered q6h PRN -Oxygen supplementation PRN, currently on 3 LNC, continue to wean -Continue Breathing Txs Constipation -Reports no BM since prior to admission -Senna scheduled BID for now -PT consult ordered -Encourage oral intake Hyponatremia Hypokalemia Hypocalcemia, mild -Na+133, K+3.1 -Corrected Ca+8.2 -Continue to monitor and replete electrolytes Hx of Depression/Anxiety -06/14: Restarted home med Prozac -Continue to monitor QTC for new changes DVT Ppx: Eliquis Code Status: Full code Discharge Plan: Home Plan to discharge in: 72 Hours - Code Status/Comfort Care Code Status Assessed: Yes (FULL CODE) Physician Review: Patient Assessed, Agree with Above Assessment and Plan
[2024-06-14] MEDS: POTASSIUM CL SA 10 MEQ TAB PO ONE ×2 (09:24→21:03)
[2024-06-14] MEDS: MAGNESIUM SULFATE 1 gm IVPB 1 GM/100 ML BAG IV ONE (09:24)
[2024-06-14] MEDS: FLUOXETINE 20 MG CAP PO ONE (11:45)
[2024-06-14] MEDS: FUROSEMIDE 40 MG/4 ML VIAL IV SCH (21:02)
[2024-06-14] MEDS: ALPRAZOLAM 0.25 MG TABLET PO ONE (21:04)
[2024-06-15 06:15] LABS: Absolute Lymphocytes (CBC) 0.6 K/uL (0.7-4.9); Absolute Monocytes 0.7 K/uL (0.1-1.3); Absolute Neutrophil 4.6 K/uL (1.8-8.0); Basophils % 0.3 % (0-1.3); Eosinophils % 0.1 % (0-4.4); Hematocrit 29.7 % (39.6-49.0); Hemoglobin 9.9 g/dL (13.6-17.9); Lymphocytes % 9.6 % (15.3-44.8); MCH 28.8 pg (27.0-35.0); MCHC 33.4 g/dL (32.0-36.0); MCV 86.3 fL (80-100); MPV 7.1 fL (7.6-11.3); Monocytes % 11.2 % (3.3-12.3); Neutrophils % 78.8 % (41.7-73.7); Nucleated Red Blood Cells % 0.1 % (0-0); Platelets 159 thou/uL (152-406); RBC Red Blood Cell Count 3.44 M/uL (4.33-5.43); Red Cell Distribution Width 16.5 % (12.1-15.2)
[2024-06-15 06:38] LABS: Albumin 2.6 g/dL (3.4-5.0); Albumin/Globulin Ratio 0.6 (1.1-1.8); Anion Gap 7.5 mEq/L (5.0-15.0); Bilirubin Total 1.9 mg/dL (0.2-1.0); Globulin 4.1 g/dL (2.3-3.5); Phosphorus 2.5 mg/dL (2.5-4.9); Potassium 3.5 mEq/L (3.5-5.1); Protein, Total 6.7 g/dL (6.4-8.2)
--- NOTE | 2024-06-15 06:41 | P.PN ---
Subjective Date of Service: 06/15/24 Chief Complaint: Palpitation Review of Systems 10-point ROS is otherwise unremarkable Physical Examination - Vital Signs Temperature: 98.2 F Blood Pressure: 119/71 Pulse: 110 Respirations: 18 Pulse Ox (%): 94 - Physical Exam General: Alert, In no apparent distress HEENT: Atraumatic, Normocephalic Neck: Supple Respiratory: Diminished, Crackles/rales Cardiovascular: Regular rate/rhythm, Normal S1 S2 Capillary refill: <2 Seconds Gastrointestinal: Soft and benign Musculoskeletal: No clubbing, Swelling Integumentary: No rashes Neurological: Other (Alert , Awake) Lymphatics: No axilla or inguinal lymphadenopathy - Studies Medications List Reviewed: Yes Assessment And Plan - Current Problems (Diagnosis) (1) A-fib Current Visit: Yes Status: Acute - Plan A-fib with RVR Monitor closely on telemetry Rate control Cardiology consulted Will continue Xarelto Continue home medications and titrate as needed Acute on chronic CHF possibly systolic/diastolic Monitor closely on telemetry Started on diuresis X-ray findings consistent with CHF Oxygen supplementation Will try to wean down oxygen requirement Continue home medications Titrate as needed Will obtain an echocardiogram Cardiology consult Hypertension Antihypertensives titrated Continue home medications and titrate as needed Hyperlipidemia Continue statin CAD status post CABG and stents Medical management for now Will consult cardiology Diabetes Insulin sliding scale Accu-Chek before every meal and at bedtime GI/DVT prophylaxis Advanced directive full code 06/15/2024 Still on Lasix Appreciate help from cardiology Awaiting further recommendations CAD/medical management Physician Review: Patient Assessed, Agree with Above Assessment and Plan Time Spent Managing PTS Care (In Minutes): 48
[2024-06-15] MEDS: POTASSIUM CL SA 10 MEQ TAB PO ONE (09:39)
[2024-06-15] MEDS: FLUOXETINE 20 MG CAP PO SCH (09:40)
--- NOTE | 2024-06-15 15:09 | P.PN ---
Subjective Date of Service: 06/15/24 Chief Complaint: Palpitation Subjective: No new changes, No C/O voiced, Tolerating diet, Ambulating, Improving Review of Systems 10-point ROS is otherwise unremarkable Physical Examination - Vital Signs Temperature: 97.4 F Blood Pressure: 90/61 Pulse: 96 Respirations: 26 Pulse Ox (%): 96 - Physical Exam General: Alert, In no apparent distress HEENT: Atraumatic, PERRLA, EOMI Neck: Supple, JVD not distended Respiratory: Normal air movement, Crackles/rales Cardiovascular: Edema, Irregular heart rate/rhythm Gastrointestinal: Normal bowel sounds, No tenderness Musculoskeletal: No tenderness Integumentary: No rashes Neurological: Normal speech, Normal tone, Normal affect Lymphatics: No axilla or inguinal lymphadenopathy - Studies Medications List Reviewed: Yes Assessment And Plan - Current Problems (Diagnosis) (1) Acute on chronic combined systolic (congestive) and diastolic (congestive) heart failure Current Visit: Yes Status: Acute Plan: continue lasix 40 mg IV BID, patient still having crackles. continue to monitor input and output and electrolytes. (2) A-fib Current Visit: Yes Status: Acute Plan: amiodarone 200 mg po BID patient breathing still labored, so it will be risky to do VITOR DCCV, will re evaluate tomorrow. Eliquis 5 mg po BID. (3) CAD (coronary artery disease) of artery bypass graft Current Visit: No Status: Acute Plan: Patient with known complex CAD, with only patent MALONE to LAD with collaterals, no option for stent or re do CABG. continue to monitor. Physician Review: Patient Assessed, Agree with Above Assessment and Plan
[2024-06-16 06:01] LABS: Anion Gap 9.2 mEq/L (5.0-15.0); Potassium 3.2 mEq/L (3.5-5.1)
[2024-06-16 06:23] LABS: Absolute Lymphocytes (CBC) 0.8 K/uL (0.7-4.9); Absolute Monocytes 0.7 K/uL (0.1-1.3); Absolute Neutrophil 5.1 K/uL (1.8-8.0); Basophils % 0.4 % (0-1.3); Eosinophils % 0.5 % (0-4.4); Hematocrit 28.1 % (39.6-49.0); Hemoglobin 9.5 g/dL (13.6-17.9); Lymphocytes % 12.2 % (15.3-44.8); MCV 85.4 fL (80-100); MPV 7.8 fL (7.6-11.3); Monocytes % 10.4 % (3.3-12.3); Neutrophils % 76.5 % (41.7-73.7); Nucleated Red Blood Cells % 0.2 % (0-0); Platelets 153 thou/uL (152-406); RBC Red Blood Cell Count 3.29 M/uL (4.33-5.43); Red Cell Distribution Width 16.3 % (12.1-15.2)
[2024-06-16] MEDS: POTASSIUM CL SA 10 MEQ TAB PO ONE ×2 (08:00→11:23)
[2024-06-16] MEDS: NA CHLORIDE 0.9% 500 ML ONE (09:18)
[2024-06-16] MEDS ORDERED: propofoL 200 MG/20 ML VIAL IV ONE (10:09)
[2024-06-16] MEDS ORDERED: LIDOCAINE 1% MPF 5 ML VIAL ONE (10:10)
--- NOTE | 2024-06-16 10:34 | P.PN ---
Subjective Date of Service: 06/16/24 Chief Complaint: Palpitation Subjective: No new changes, No C/O voiced, Tolerating diet, Ambulating, Improving Review of Systems 10-point ROS is otherwise unremarkable Physical Examination - Vital Signs Temperature: 98.3 F Blood Pressure: 107/70 Pulse: 111 Respirations: 20 Pulse Ox (%): 93 - Physical Exam General: Alert, In no apparent distress HEENT: Atraumatic, PERRLA, EOMI Neck: Supple, JVD not distended Respiratory: Clear to auscultation bilaterally, Normal air movement Cardiovascular: Edema, Irregular heart rate/rhythm Gastrointestinal: Normal bowel sounds, No tenderness Musculoskeletal: No tenderness Integumentary: No rashes Neurological: Normal speech, Normal tone, Normal affect Lymphatics: No axilla or inguinal lymphadenopathy - Studies Medications List Reviewed: Yes Assessment And Plan - Current Problems (Diagnosis) (1) Acute on chronic combined systolic (congestive) and diastolic (congestive) heart failure Current Visit: Yes Status: Acute Plan: continue lasix 40 mg IV BID, patient still having crackles. continue to monitor input and output and electrolytes. (2) A-fib Current Visit: Yes Status: Acute Plan: Patient failed VITOR DCCV x3 Times, patient will need outpatient EP evaluation. Increase amiodarone to 400 mg po BID patient for next 5 days, Continue Eliquis 5 mg po BID. (3) CAD (coronary artery disease) of artery bypass graft Current Visit: No Status: Acute Plan: Patient with known complex CAD, with only patent MALONE to LAD with collaterals, no option for stent or re do CABG. continue to monitor. Physician Review: Patient Assessed, Agree with Above Assessment and Plan
[2024-06-16] MEDS: AMIODARONE HCL 200 MG TAB PO SCH (11:22)
--- NOTE | 2024-06-16 11:49 | TEE ---
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 NORMAL LEFT ATRIAL APPENDAGE, NO CLOT 2. FAILED DIRECT CURRENT CARDIOVERSION TECHNOLOGIST: KIMMIE LINDA
[2024-06-17 07:26] LABS: Absolute Eosinophils 0.1 K/uL (0-0.5); Absolute Lymphocytes (CBC) 0.9 K/uL (0.7-4.9); Absolute Monocytes 0.7 K/uL (0.1-1.3); Absolute Neutrophil 5.2 K/uL (1.8-8.0); Basophils % 0.4 % (0-1.3); Eosinophils % 0.9 % (0-4.4); Hematocrit 29.3 % (39.6-49.0); Hemoglobin 9.8 g/dL (13.6-17.9); Lymphocytes % 13.3 % (15.3-44.8); MCH 28.7 pg (27.0-35.0); MCHC 33.4 g/dL (32.0-36.0); MCV 86.1 fL (80-100); MPV 7.6 fL (7.6-11.3); Monocytes % 9.6 % (3.3-12.3); Neutrophils % 75.8 % (41.7-73.7); Nucleated Red Blood Cells % 0.1 % (0-0); Platelets 217 thou/uL (152-406); RBC Red Blood Cell Count 3.41 M/uL (4.33-5.43)
--- NOTE | 2024-06-17 11:50 | P.PN ---
Subjective Date of Service: 06/17/24 Chief Complaint: Palpitation Subjective: No new changes, No C/O voiced, Tolerating diet, Ambulating, Improving Review of Systems 10-point ROS is otherwise unremarkable Physical Examination - Vital Signs Temperature: 97.6 F Blood Pressure: 128/67 Pulse: 90 Respirations: 18 Pulse Ox (%): 96 - Physical Exam General: Alert, In no apparent distress HEENT: Atraumatic, PERRLA, EOMI Neck: Supple, JVD not distended Respiratory: Clear to auscultation bilaterally, Normal air movement Cardiovascular: Irregular heart rate/rhythm Gastrointestinal: Normal bowel sounds, No tenderness Musculoskeletal: No tenderness Integumentary: No rashes Neurological: Normal speech, Normal tone, Normal affect Lymphatics: No axilla or inguinal lymphadenopathy - Studies Medications List Reviewed: Yes Assessment And Plan - Current Problems (Diagnosis) (1) 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 Metolazone 2.5 mg po x1 today re start Aldactone 25 mg daily continue to monitor input and output and electrolytes. (2) A-fib Current Visit: Yes Status: Acute Plan: Patient failed VITOR DCCV x3 Times, patient will need outpatient EP evaluation. amiodarone to 400 mg po BID patient for next 5 days, then continue amiodarone 200 mg po BID Continue Eliquis 5 mg po BID. (3) CAD (coronary artery disease) of artery bypass graft Current Visit: No Status: Acute Plan: Patient with known complex CAD, with only patent MALONE to LAD with collaterals, no option for stent or re do CABG. continue to monitor. Physician Review: Patient Assessed, Agree with Above Assessment and Plan
[2024-06-17] MEDS: SPIRONOLACTONE 25 MG TABLET PO SCH (11:51)
[2024-06-17] MEDS: METOLAZONE 5 MG TABLET PO ONE (12:00)
[2024-06-17] MEDS: ONDANSETRON 4 MG/2 ML VIAL IV PRN (22:39)
--- NOTE | 2024-06-18 11:51 | P.PN ---
Subjective Date of Service: 06/18/24 Chief Complaint: Palpitation Subjective: No new changes, No C/O voiced, Tolerating diet, Ambulating, Improving Review of Systems 10-point ROS is otherwise unremarkable Physical Examination - Vital Signs Temperature: 97.5 F Blood Pressure: 118/74 Pulse: 89 Respirations: 14 Pulse Ox (%): 99 - Physical Exam General: Alert, In no apparent distress HEENT: Atraumatic, PERRLA, EOMI Neck: Supple, JVD not distended Respiratory: Clear to auscultation bilaterally, Normal air movement Cardiovascular: Irregular heart rate/rhythm Gastrointestinal: Normal bowel sounds, No tenderness Musculoskeletal: No tenderness Integumentary: No rashes Neurological: Normal speech, Normal tone, Normal affect Lymphatics: No axilla or inguinal lymphadenopathy - Studies Medications List Reviewed: Yes Assessment And Plan - Current Problems (Diagnosis) (1) 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 Metolazone 5 mg po x1 today continue Aldactone 25 mg daily continue to monitor input and output and electrolytes. (2) A-fib Current Visit: Yes Status: Acute Plan: Patient failed VITOR DCCV x3 Times, patient will need outpatient EP evaluation. amiodarone to 400 mg po BID patient for one more day, then continue amiodarone 200 mg po BID re start Toprol XL 25 mg daily Continue Eliquis 5 mg po BID. (3) CAD (coronary artery disease) of artery bypass graft Current Visit: No Status: Acute Plan: Patient with known complex CAD, with only patent MALONE to LAD with collaterals, no option for stent or re do CABG. continue to monitor. Physician Review: Patient Assessed, Agree with Above Assessment and Plan
[2024-06-18] MEDS: METOLAZONE 5 MG TABLET PO SCH (12:00)
--- NOTE | 2024-06-18 12:39 | EKG ---
Test Date: 2024-06-16 Test Time: 09:42:36 Syrup Maker: NAS MEASUREMENT RESULTS: Intervals: Rate: 105 [place]: 240 QRSD: 176 QT: 380 QTc: 502 [place]: P: NH: 240 QRS: -60 T: 1 INTERPRETIVE STATEMENTS: Sinus tachycardia with 1st degree AV block with premature atrial complexes with aberrant conduction Indeterminate axis Right bundle branch block Possible Inferior infarct, age undetermined Abnormal ECG Compared to ECG 06/12/2024 12:05:42 Atrial premature complex(es) now present First degree AV block now present Aberrant conduction of supraventricular beat(s) now present Myocardial infarct finding now present Atrial fibrillation no longer present Ventricular premature complex(es) no longer present Right ventricular hypertrophy no longer present Electronically Signed On 06-18-24 12:28:38 CDT by Gavin Calderon
--- NOTE | 2024-06-18 12:56 | EKG ---
Test Date: 2024-06-12 Test Time: 12:05:42 Hotel Recreational Facilities Manager: JAYME MEASUREMENT RESULTS: Intervals: Rate: 105 ID: QRSD: [id number] QT: 388 QTc: 512 [place]: P: ID: [id number]: [id number] T: -8 INTERPRETIVE STATEMENTS: Atrial fibrillation with rapid ventricular response with premature ventricular or aberrantly conducted complexes Indeterminate axis Right bundle branch block, plus right ventricular hypertrophy Abnormal ECG Compared to ECG 06/10/2024 20:26:55 Indeterminate axis now present Right ventricular hypertrophy now present Myocardial infarct finding no longer present Electronically Signed On 06-18-24 12:37:09 CDT by Gavin Calderon
--- NOTE | 2024-06-18 16:00 | OP ---
Date of Procedure: 06/16/2024 Surgeon: Gavin Calderon Procedure Performed: Synchronized VITOR cardioversion. Indication For Procedure: Atrial fibrillation. Complications: None. Estimated Blood Loss: None. Sedation: Done by anesthesia team. Description Of Procedure: After risks, benefits, and alternatives were explained to the patient, the patient agreed to proceed with procedure and signed informed consent. The patient was brought back to the OR, prepped and draped. Time-out was performed. Sedation was administered by anesthesia team . VITOR probe was inserted, images were obtained, VITOR probe was out. Synchronized cardioversion was d one 3 times with 250, 300, and 360. The patient persisted in atrial fibrillation, so the procedure w as aborted and patient was moved back to Recovery in stable condition. Assessment And Plan: Atrial fibrillation, status post failed VITOR cardioversion x3. Plan is to increase amiodarone dose for 5 days and then continue 200 b.i.d. and continue anticoagulat ion. CATHERINE/DIEGO Voice ID: [id number] Report ID: [id number]
[2024-06-18] MEDS: METOPROLOL XL 25 MG TAB PO SCH (21:00)
[2024-06-19 05:08] LABS: Absolute Lymphocytes (CBC) 0.7 K/uL (0.7-4.9); Absolute Monocytes 0.8 K/uL (0.1-1.3); Basophils % 0.6 % (0-1.3); Eosinophils % 0.6 % (0-4.4); Hematocrit 26.9 % (39.6-49.0); Hemoglobin 9.1 g/dL (13.6-17.9); Lymphocytes % 10.3 % (15.3-44.8); MCH 28.9 pg (27.0-35.0); MCHC 33.8 g/dL (32.0-36.0); MCV 85.4 fL (80-100); MPV 7.7 fL (7.6-11.3); Monocytes % 12.6 % (3.3-12.3); Neutrophils % 75.9 % (41.7-73.7); Nucleated Red Blood Cells % 0.2 % (0-0); Platelets 261 thou/uL (152-406); RBC Red Blood Cell Count 3.15 M/uL (4.33-5.43); Red Cell Distribution Width 15.8 % (12.1-15.2)
[2024-06-19 05:25] LABS: Albumin 2.4 g/dL (3.4-5.0); Albumin/Globulin Ratio 0.6 (1.1-1.8); Anion Gap 8.4 mEq/L (5.0-15.0); Bilirubin Total 2.1 mg/dL (0.2-1.0); Globulin 4.1 g/dL (2.3-3.5); Phosphorus 3.2 mg/dL (2.5-4.9); Potassium 3.4 mEq/L (3.5-5.1); Protein, Total 6.5 g/dL (6.4-8.2)
[2024-06-19] MEDS: POTASSIUM CL SA 10 MEQ TAB PO ONE ×2 (10:18→23:20)
--- NOTE | 2024-06-19 11:48 | P.PN ---
Subjective Date of Service: 06/19/24 Chief Complaint: Palpitation Subjective: No new changes, No C/O voiced, Tolerating diet, Ambulating, Improving Review of Systems 10-point ROS is otherwise unremarkable Physical Examination - Vital Signs Temperature: 98.3 F Blood Pressure: 103/71 Pulse: 94 Respirations: 16 Pulse Ox (%): 95 - Physical Exam General: Alert, In no apparent distress HEENT: Atraumatic, PERRLA, EOMI Neck: Supple, JVD not distended Respiratory: Clear to auscultation bilaterally, Normal air movement Cardiovascular: Irregular heart rate/rhythm Gastrointestinal: Normal bowel sounds, No tenderness Musculoskeletal: No tenderness Integumentary: No rashes Neurological: Normal speech, Normal tone, Normal affect Lymphatics: No axilla or inguinal lymphadenopathy - Studies Medications List Reviewed: Yes Assessment And Plan - Current Problems (Diagnosis) (1) 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 Metolazone 5 mg po x1 today (I tried ordering for the last 2 days and order has been cancelled twice, please give and do not hold for BP) continue Aldactone 25 mg daily continue to monitor input and output and electrolytes. (2) A-fib Current Visit: Yes Status: Acute Plan: Patient failed VITOR DCCV x3 Times, patient will need outpatient EP evaluation. amiodarone to 400 mg po BID patient for one more day, then continue amiodarone 200 mg po BID re start Toprol XL 25 mg daily Continue Eliquis 5 mg po BID. (3) CAD (coronary artery disease) of artery bypass graft Current Visit: No Status: Acute Plan: Patient with known complex CAD, with only patent MALONE to LAD with collaterals, no option for stent or re do CABG. continue to monitor. Physician Review: Patient Assessed, Agree with Above Assessment and Plan
[2024-06-19] MEDS: METOLAZONE 5 MG TABLET PO SCH (17:00)
[2024-06-19] MEDS: AMIODARONE HCL 200 MG TAB PO SCH (21:05)
[2024-06-19 21:50] LABS: Anion Gap 9.5 mEq/L (5.0-15.0); Potassium 3.5 mEq/L (3.5-5.1)
[2024-06-20 05:50] LABS: Anion Gap 6.8 mEq/L (5.0-15.0); Potassium 3.8 mEq/L (3.5-5.1)
[2024-06-20] MEDS: METOLAZONE 5 MG TABLET PO SCH (18:01)
[2024-06-20] MEDS: ALBUMIN HUMAN 25% 200 ML IV ONE (18:02)
[2024-06-21 03:24] VITALS: BMI 32.0
[2024-06-21 06:32] LABS: Anion Gap 7.7 mEq/L (5.0-15.0); Potassium 3.7 mEq/L (3.5-5.1)
[2024-06-21] MEDS: POTASSIUM CL SA 10 MEQ TAB PO ONE (08:38)
[2024-06-21 09:06] VITALS: TEMP 97.8
[2024-06-21 09:38] VITALS: O2SAT 98
[2024-06-21 12:42] VITALS: BP 103/69
== END 2024-06-21 12:28 | disposition home or self-care (01) | DRG 871 ==
LOC: ER 18:38 → 2ND 23:55
PROVIDERS: ADMIT Family Medicine; ATTEND Hospitalist
PROC: 02HV33Z Insertion of Infusion Device into Superior Vena Cava, Percutaneous Approach (ICD-10-PCS; 2024-06-11)
PROC: B24BZZ4 Ultrasonography of Heart with Aorta, Transesophageal (ICD-10-PCS; principal; 2024-06-16)
PROC: 5A2204Z Restoration of Cardiac Rhythm, Single (ICD-10-PCS; 2024-06-16)
DX: A41.9 Sepsis, unspecified organism (principal); I50.43 Acute on chronic combined systolic (congestive) and diastolic (congestive) heart failure; N17.9 Acute kidney failure, unspecified; E87.20 Acidosis, unspecified; I25.810 Atherosclerosis of coronary artery bypass graft(s) without angina pectoris; N39.0 Urinary tract infection, site not specified; E87.1 Hypo-osmolality and hyponatremia; R65.20 Severe sepsis without septic shock; I11.0 Hypertensive heart disease with heart failure; E11.9 Type 2 diabetes mellitus without complications; I48.91 Unspecified atrial fibrillation; E03.9 Hypothyroidism, unspecified; E83.51 Hypocalcemia; F41.9 Anxiety disorder, unspecified; E87.6 Hypokalemia; F32.A Depression, unspecified; E78.00 Pure hypercholesterolemia, unspecified; I49.3 Ventricular premature depolarization; K59.00 Constipation, unspecified; I25.2 Old myocardial infarction; B34.9 Viral infection, unspecified; Z95.5 Presence of coronary angioplasty implant and graft; Z79.01 Long term (current) use of anticoagulants; Z79.899 Other long term (current) drug therapy; Z87.891 Personal history of nicotine dependence
CPT/HCPCS: 01922; 36415; 71045; 71275; 76770; 80048; 80053; 81001; 82040; 82947; 83605; 83735; 83880; 84100; 84132; 84145; 84484; 85025; 85610; 85730; 87040; 87077; 87086; 87088; 87186; 87428; 92960; 93005; 93306; 93312; 94640; 94760; 96365; 96366; 96375; 97116; 97161; 97530; 99285; J0282; J0692; J0696; J1650; J1815; J1940; J2003; J2405; J2704; J3370; J3475; J7040; J7060; J7614; J7644; P9047; Q9967

== ENCOUNTER 2024-07-12 13:03 | Observation (INO) | payer OTHER ==
[2024-07-12] MEDS ORDERED: FUROSEMIDE 40 MG/4 ML VIAL ONE (13:47)
[2024-07-12 14:02] LABS: Absolute Lymphocytes (CBC) 0.8 K/uL (0.7-4.9); Absolute Monocytes 0.6 K/uL (0.1-1.3); Absolute Neutrophil 3.8 K/uL (1.8-8.0); Basophils % 0.7 % (0-1.3); Eosinophils % 0.8 % (0-4.4); Hemoglobin 10.4 g/dL (13.6-17.9); Lymphocytes % 15.7 % (15.3-44.8); MCH 28.9 pg (27.0-35.0); MCHC 33.7 g/dL (32.0-36.0); MCV 85.6 fL (80-100); MPV 7.4 fL (7.6-11.3); Monocytes % 10.7 % (3.3-12.3); Neutrophils % 72.1 % (41.7-73.7); Platelets 126 thou/uL (152-406); RBC Red Blood Cell Count 3.62 M/uL (4.33-5.43); Red Cell Distribution Width 18.1 % (12.1-15.2)
[2024-07-12 14:25] LABS: Albumin/Globulin Ratio 0.7 (1.1-1.8); Bilirubin Direct 0.5 mg/dL (0-0.2); Bilirubin Indirect, Calculated 1.3 mg/dL (0.2-0.8); Bilirubin Total 1.8 mg/dL (0.2-1.0); Globulin 4.4 g/dL (2.3-3.5); Protein, Total 7.4 g/dL (6.4-8.2)
[2024-07-12 14:30] LABS: Troponin High Sensitivity 141.5 pg/mL (<58.9)
--- NOTE | 2024-07-12 14:36 | RAD REPORT ---
Procedure: Chest Single View HISTORY: Shortness of breath COMPARISON: May 2024 FINDINGS: Mild bilateral interstitial lung opacities. No significant pleural effusion Moderate cardiomegaly. Post surgical changes involve the chest. IMPRESSION: These findings may indicate mild CHF
--- NOTE | 2024-07-12 16:49 | EDPHYS ---
Physician Documentation [facility] [place], [place] Name: Alicia Jalloh Age: 68 yrs Sex: Male : 1955 Arrival Date: 07/12/2024 Time: 13:03 Bed 3 Private MD: ED Physician Matt Matta HPI: 07/12 14:11 This 68 yrs old Male presents to ER via Ambulatory with complaints of Chest Pain, rt Shortness Of Breath. 14:11 Patient presents to the ED pulmonary for shortness of breath per his report. The rt patient states that he has a progressively worsening shortness of breath since being discharged for CHF exacerbation. States that he is lost a significant amount of water weight. Continues to take his Lasix. Ports a vague chest discomfort but states that his primary reason for coming today is shortness of breath. States that it is worse when he stands up and exerts himself. Denies other complaints, symptoms are moderate in severity, no other aggravating alleviating factors.. Historical: - Allergies: 13:27 No Known Allergies; cm10 - PMHx: 13:27 Atrial fibrillation; Diabetes - NIDDM; High Cholesterol; Hypertension; Hypothyroidism; cm10 Myocardial infarction; - Immunization history:: Adult Immunizations up to date. - Infectious Disease History:: Denies. - Social history:: Smoking status: unknown. - Family history:: not pertinent. ROS: 14:11 Constitutional: Negative for fever, chills, and weight loss, Abdomen/GI: Negative for rt abdominal pain, nausea, vomiting, diarrhea, and constipation, MS/Extremity: Negative for injury and deformity, Skin: Negative for injury, rash, and discoloration, Neuro: Negative for headache, weakness, numbness, tingling, and seizure, 14:11 Cardiovascular: Positive for chest pain, edema, 14:11 Respiratory: Positive for cough, shortness of breath, Exam: 14:11 Constitutional: This is a well developed, well nourished patient who is awake, alert, rt and in no acute distress. Head/Face: Normocephalic, atraumatic. Chest/axilla: Normal chest wall appearance and motion. Nontender with no deformity. No lesions are appreciated. Cardiovascular: Regular rate and rhythm with a normal S1 and S2. No gallops, murmurs, or rubs. Normal PMI, no JVD. No pulse deficits. Abdomen/GI: Soft, non-tender, with normal bowel sounds. No distension or tympany. No guarding or rebound. No evidence of tenderness throughout. Skin: Warm, dry with normal turgor. Normal color with no rashes, no lesions, and no evidence of cellulitis. Neuro: Awake and alert, GCS 15, oriented to person, place, time, and situation. Cranial nerves II-XII grossly intact. Motor strength 5/5 in all extremities. Sensory grossly intact. Cerebellar exam normal. Normal gait. 14:11 ECG was reviewed by the Attending Physician. 14:11 Respiratory: Bibasilar crackles, no respiratory distress, 14:11 Musculoskeletal/extremity: 3+ bilateral lower extremity edema, symmetric. Vital Signs: 13:27 BP 114 / 72; Pulse 98; Resp 20; Temp 98.7; Pulse Ox 96% on R/A; Weight 86.64 kg; Height cm10 5 ft. 11 in. ; Pain 5/10; 13:52 Weight 103.42 kg (M); aa5 13:57 BP 100 / 74; Pulse 85; Resp 15; Pulse Ox 92% on R/A; jl7 14:24 BP 116 / 76; Pulse 88; Resp 18 S; Pulse Ox 92% on R/A; aa5 15:50 BP 100 / 69; Pulse 94; Resp 19 S; Pulse Ox 96% on R/A; aa5 17:00 BP 100 / 75; Pulse 90; Resp 20 S; Pulse Ox 98% on R/A; aa5 18:30 Pulse Ox 90% on R/A; aa5 18:33 BP 114 / 83; Pulse 101; Resp 19 S; Pulse Ox 99% on 2 lpm NC; aa5 19:00 BP 112 / 77; Pulse 82; Resp 20; Pulse Ox 98% on NC; jj7 20:00 BP 118 / 83; Pulse 90; Resp 20; Pulse Ox 98% on 2 lpm NC; jj7 13:27 Body Mass Index 26.64 (103.42 kg, 180.34 cm) cm10 13:27 Pain Scale: Adult cm10 18:30 see nursing notes. aa5 MDM: 13:34 Medical Screening Exam initiated rt 20:32 Differential diagnosis: ACS, CHF, pneumonia. Data reviewed: vital signs, nurses notes, rt lab test result(s), EKG, radiologic studies. Consideration of Admission/Observation Patient was admitted/placed on observation. Management of patient was discussed with the following: Social Sciences Lecturer: Suspect her eyewash, okay to keep here. Independent interpretation of the following test(s) in the Emergency Department CT Scan: My interpretation is Pulmonary edema syndrome interpretation of x-ray images. Test considered but Not performed: CT: Low suspicion for pulmonary embolus, CT angiogram not dictated. Care significantly affected by the following chronic conditions: Congestive Heart Failure. Counseling: I had a detailed discussion with the patient and/or guardian regarding the historical points, exam findings, and any diagnostic results supporting the discharge/admit diagnosis, lab results, radiology results, the need for further work-up and treatment in the hospital. Response to treatment: the patient's symptoms have mildly improved after treatment. 07/12 13:44 Order name: Basic Metabolic Panel; Complete Time: 14:34 rt 07/12 13:44 Order name: CBC with Diff; Complete Time: 14:34 rt 07/12 13:44 Order name: LFT's; Complete Time: 14:34 rt 07/12 13:44 Order name: NT PRO-BNP; Complete Time: 14:34 rt 07/12 13:44 Order name: Troponin HS; Complete Time: 14:34 rt 07/12 17:09 Order name: Urinalysis w/ reflexes EDMS 07/12 17:09 Order name: Basic Metabolic Panel EDMS 07/12 17:09 Order name: Basic Metabolic Panel EDMS 07/12 17:09 Order name: Basic Metabolic Panel EDMS 07/12 17:09 Order name: Basic Metabolic Panel EDMS 07/12 17:09 Order name: Basic Metabolic Panel EDMS 07/12 17:09 Order name: Basic Metabolic Panel EDMS 07/12 17:09 Order name: CBC with Automated Diff EDMS 07/12 17:09 Order name: CBC with Automated Diff EDMS 07/12 17:09 Order name: CBC with Automated Diff EDMS 07/12 17:09 Order name: CBC with Automated Diff EDMS 07/12 17:09 Order name: CBC with Automated Diff EDMS 07/12 17:09 Order name: CBC with Automated Diff EDMS 07/12 17:09 Order name: Magnesium EDMS 07/12 17:09 Order name: Magnesium EDMS 07/12 17:09 Order name: Magnesium EDMS 07/12 17:09 Order name: Magnesium EDMS 07/12 17:09 Order name: Magnesium EDMS 07/12 17:09 Order name: Magnesium EDMS 07/12 17:09 Order name: Phosphorus EDMS 07/12 17:09 Order name: Phosphorus EDMS 07/12 17:09 Order name: Phosphorus EDMS 07/12 17:09 Order name: Phosphorus EDMS 07/12 17:09 Order name: Phosphorus EDMS 07/12 17:09 Order name: Phosphorus EDMS 07/12 17:09 Order name: Troponin High Sensitivity EDMS 07/12 17:09 Order name: Troponin High Sensitivity EDMS 07/12 17:09 Order name: Troponin High Sensitivity EDMS 07/12 17:15 Order name: COVID-19 Ag + Flu A+B Ag EDMS 07/12 13:44 Order name: XRAY Chest (1 view); Complete Time: 14:41 rt 07/12 17:09 Order name: Physical Therapy Consult EDMS 07/12 13:44 Order name: Cardiac monitoring; Complete Time: 13:45 rt 07/12 13:44 Order name: EKG - Nurse/Tech; Complete Time: 13:45 rt 07/12 13:44 Order name: IV Saline Lock; Complete Time: 13:45 rt 07/12 13:44 Order name: Labs collected and sent; Complete Time: 13:45 rt 07/12 13:44 Order name: O2 Per Protocol; Complete Time: 13:45 rt 07/12 13:44 Order name: O2 Sat Monitoring; Complete Time: 13:45 rt EC:11 Rate is 98 beats/min. Rhythm is regular, A fib with Right bundle branch block. QRS [place] rt is Normal. [place] interval is normal. QRS interval is normal. QT interval is normal. No Q waves. Administered Medications: 13:49 Drug: Furosemide IVP 40 mg IVP once; give over 2 minutes Route: IVP; Site: right wrist; hb 14:00 Follow up: Response: No adverse reaction aa5 Disposition: 20:32 Critical Care:. rt Disposition Summary: 07/12/24 16:49 Hospitalization Ordered Notes: Hospitalization Status: Inpatient Admission rt Provider: Darius Flannery rt Location: Telemetry/MedSurg (Inpatient) rt Condition: Fair rt Problem: an ongoing problem rt Symptoms: have improved rt Bed/Room Type: Standard rt Room Assignment: 405(07/12/24 18:39) eb Diagnosis - CHF exacerbation rt - NSTEMI rt Forms: - Medication Reconciliation Form rt - SBAR form rt - Leadership Thank You Letter rt Critical care time excluding procedures: 20:32 Critical care time: Bedside Care: 30 minutes. Total time: 30 minutes rt Signatures: Dispatcher [employer] EDMS Pilar Merida RN RN Gloria Fallon Matt Matta MD MD rt Anayeli Emanuel RN RN cm10 Selena Miller RN aa5 Corrections: (The following items were deleted from the chart) 13:45 13:44 BASIC METABOLIC PANEL+C.LAB.BRZ ordered. EDMS EDMS 13:45 13:44 CBC+H.LAB.BRZ ordered. EDMS EDMS 13:45 13:44 HEPATIC FUNCTION+C.LAB.BRZ ordered. EDMS EDMS 13:45 13:44 PROBNP+C.LAB.BRZ ordered. EDMS EDMS 13:45 13:44 Troponin High Sensitivity+C.LAB.BRZ ordered. EDMS EDMS 13:45 13:45 Chest Single View+RAD.RAD.BRZ ordered. EDMS EDMS 18:39 16:49 rt eb
--- NOTE | 2024-07-12 16:49 | ER ---
Nurse's Notes [facility] Name: Alicia Jalloh Age: 68 yrs Sex: Male : 1955 Arrival Date: 07/12/2024 Time: 13:03 Bed 3 Private MD: Diagnosis: CHF exacerbation;NSTEMI Presentation: 07/12 13:27 Chief complaint: Patient states: chest pain to center of chest that he describes as a cm10 discomfort onset yesterday. pt also reports shortness of breath. Coronavirus screen: Client denies travel out of the [place] in the last 14 days. Ebola Screen: Patient denies travel to an Ebola-affected area in the 21 days before illness onset. Initial Sepsis Screen: Does the patient meet any 2 criteria? HR > 90 bpm. Does the patient have a suspected source of infection? No. Patient's initial sepsis screen is negative. Risk Assessment: Do you want to hurt yourself or someone else? Patient reports no desire to harm self or others. Onset of symptoms was July 11, 2024. 13:27 Method Of Arrival: Ambulatory cm10 13:27 Acuity: MARIE 2 cm10 Triage Assessment: 13:29 General: Appears uncomfortable, Behavior is calm, cooperative. Neuro: No deficits cm10 noted. Level of Consciousness is awake, alert, obeys commands, Oriented to person, place, time, situation, Appropriate for age. Historical: - Allergies: 13:27 No Known Allergies; cm10 - PMHx: 13:27 Atrial fibrillation; Diabetes - NIDDM; High Cholesterol; Hypertension; Hypothyroidism; cm10 Myocardial infarction; - Immunization history:: Adult Immunizations up to date. - Infectious Disease History:: Denies. - Social history:: Smoking status: unknown. - Family history:: not pertinent. Screenin:00 [facility] ED Fall Risk Assessment (Adult) History of falling in the last 3 months, aa5 including since admission No falls in past 3 months (0 pts) Confusion or Disorientation No (0 pts) Intoxicated or Sedated No (0 pts) Impaired Gait Yes (1 pt) Mobility Assist Device Used Yes (1 pt) Altered Elimination No (0 pt) Score/Fall Risk Level 0 - 2 = Low Risk Oriented to surroundings, Maintained a safe environment, Educated pt \\T\\ family on fall prevention, incl call for assistance when getting out of bed, Assessed \\T\\ reinforced patient's understanding of fall precautions. Abuse screen: Denies threats or abuse. Nutritional screening: No deficits noted. Tuberculosis screening: No symptoms or risk factors identified. Assessment: 13:57 Reassessment: Patient appears in no apparent distress at this time. Patient and/or jl7 family updated on plan of care and expected duration. Pain level reassessed. Patient is alert, oriented x 3, equal unlabored respirations, skin warm/dry/pink. 14:00 General: Appears uncomfortable, Behavior is calm, cooperative. Pain: Complains of pain aa5 in chest Pain does not radiate. Pain currently is 5 out of 10 on a pain scale. Quality of pain is described as aching. Neuro: Level of Consciousness is awake, alert, obeys commands, Oriented to person, place, time, situation, Appropriate for age. Cardiovascular: Heart tones S1 S2 present Edema 2+ pitting edema noted to oleg lower extremities. Rhythm is atrial fibrillation. Respiratory: Reports SOB and cough x "a few weeks" Airway is patent Respiratory effort is even, unlabored, Respiratory pattern is regular, symmetrical, Breath sounds are coarse bilaterally. GI: Abdomen is round non-distended. : No signs and/or symptoms were reported regarding the genitourinary system. EENT:. Derm: Skin is pink, warm \\T\\ dry. Musculoskeletal: Range of motion: intact in all extremities, Pt is ambulatory with walker. 15:49 Reassessment: MD at bedside speaking to pt and pt's . . aa5 16:40 Reassessment: Hospitalist at bedside speaking to pt. . aa5 17:30 Reassessment: Patient is alert, oriented x 3, equal unlabored respirations, skin aa5 warm/dry/pink. 18:30 Reassessment: SOB noted upon exertion, O2 sat decreased to 90% RA upon using urinal aa5 standing at side of bed. Pt now back in bed.. 19:00 Reassessment: ASSUMED OF PT. PT SITTING IN BED. NO DISTRESS NOTED. VS STABLE. INFORMED jj7 PT HE IS GETTING ADMITTED. NO NEEDS AT THIS TIME. Vital Signs: 13:27 BP 114 / 72; Pulse 98; Resp 20; Temp 98.7; Pulse Ox 96% on R/A; Weight 86.64 kg; Height cm10 5 ft. 11 in. ; Pain 5/10; 13:52 Weight 103.42 kg (M); aa5 13:57 BP 100 / 74; Pulse 85; Resp 15; Pulse Ox 92% on R/A; jl7 14:24 BP 116 / 76; Pulse 88; Resp 18 S; Pulse Ox 92% on R/A; aa5 15:50 BP 100 / 69; Pulse 94; Resp 19 S; Pulse Ox 96% on R/A; aa5 17:00 BP 100 / 75; Pulse 90; Resp 20 S; Pulse Ox 98% on R/A; aa5 18:30 Pulse Ox 90% on R/A; aa5 18:33 BP 114 / 83; Pulse 101; Resp 19 S; Pulse Ox 99% on 2 lpm NC; aa5 19:00 BP 112 / 77; Pulse 82; Resp 20; Pulse Ox 98% on NC; jj7 20:00 BP 118 / 83; Pulse 90; Resp 20; Pulse Ox 98% on 2 lpm NC; jj7 13:27 Body Mass Index 26.64 (103.42 kg, 180.34 cm) cm10 13:27 Pain Scale: Adult cm10 18:30 see nursing notes. aa5 ED Course: 13:14 Patient arrived in ED. cj3 13:21 Matt Matta MD is Attending Physician. rt 13:29 Triage completed. cm10 13:29 Arm band placed on right wrist. Patient placed in an exam room, on a stretcher, on cm10 web weaver, on pulse oximetry. 13:45 Selena Miller, RN is Primary Nurse. aa5 13:50 Client placed on continuous cardiac and pulse oximetry monitoring. NIBP monitoring hb applied. wool dyer on. Pulse ox on. NIBP on. 13:51 Initial lab(s) drawn, by me, sent to lab. Inserted saline lock: 20 gauge in right em1 forearm, using aseptic technique. Blood collected. Flushed with 10 mL NS. 13:52 Basic Metabolic Panel Sent. em1 13:52 CBC with Diff Sent. em1 13:52 LFT's Sent. em1 13:52 NT PRO-BNP Sent. em1 13:52 Troponin HS Sent. em1 14:00 Patient has correct armband on for positive identification. Bed in low position. Call aa5 light in reach. Side rails up X2. Client placed on continuous cardiac and pulse oximetry monitoring. NIBP monitoring applied. wool dyer on. Pulse ox on. NIBP on. 14:07 XRAY Chest (1 view) In Process Unspecified. EDMS 14:25 No provider procedures requiring assistance completed. aa5 16:49 Darius Flannery MD is Hospitalizing Provider. rt 19:00 Report given to TOMMIE Stevens and TOMMIE GARZA. aa5 19:00 Lights dimmed. jj7 20:07 Oxygen administration via nasal cannula \\T\\ 2L/min Response to oxygen therapy: symptoms rosamaria7 improved. 20:07 Patient admitted, IV remains in place. jj7 Administered Medications: 13:49 Drug: Furosemide IVP 40 mg IVP once; give over 2 minutes Route: IVP; Site: right wrist; hb 14:00 Follow up: Response: No adverse reaction aa5 Medication: 14:24 VIS not applicable for this client. aa5 Output: 14:16 Urine: 100ml (Voided); Total: 100ml. aa5 17:30 Urine: 700ml (Voided); Total: 800ml. aa5 Outcome: 16:49 Decision to Hospitalize by Provider. rt 20:07 Admitted to Med/surg accompanied by tech, via wheelchair, room 405, Report called to erik FAN FAXED TO 4TH FLOOR 20:07 Condition: good 20:16 Patient left the ED. erik Signatures: Dispatcher [employer] EDMS Tanvir Emanuel em1 Selena Miller RN RN aa5 Pilar Merida RN RN Yojana Connolly RN RN [email or web address] Brian Rhodes RN RN jj7 [place], Ryan, MD MD rt Anayeli Emanuel RN RN cm10 Amarilys Rhodes cj3 Corrections: (The following items were deleted from the chart) 20:14 20:11 BP 118 / 83; Pulse 90bpm; Resp 20bpm; Pulse Ox 98%; jaramis valencia 20:16 20:15 Patient admitted, IV remains in place. erik valencia
[2024-07-12] MEDS ORDERED: ACETAMINOPHEN 325 MG TABLET PO PRN (17:08)
--- NOTE | 2024-07-12 17:10 | P.HP ---
Certification for Inpatient Patient admitted to: Observation With expected LOS: <2 Midnights Patient will require the following post-hospital care: None Practitioner: I am a practitioner with admitting privileges, knowledge of patient current condition, hospital course, and medical plan of care. Services: Services provided to patient in accordance with Admission requirements found in Title 42 Section 412.3 of the Code of Federal Regulations Patient History Date of Service: 07/12/24 Reason for admission: CHF exacerbation History of Present Illness: Alicia Jalloh is a 68 year old male with pmhx Systolic/diastolic CHF, Atrial fibrillation; Diabetes - NIDDM; High Cholesterol; Hypertension; Hypothyroidism; Myocardial infaction, CAD s/p CABG who presents to the ED with SOB. fever, and edema to bilateral lower extremities. Family at the bedside reports he started a fever last night but broke before the morning, and he has been around a child with RSV. He reports compliance with all medications that were prescribed at discharge May. He also reports having a scheduled ablation for his Afib on Sunday. Family reports he called the cardiology call number and was told to come to the ED. Laboratory evaluation significant for Platelets 126, Troponin 141.5, BNP 6841, T bili 1.8, AST 55. Chest xray reports "Mild bilateral interstitial lung opacities. No significant pleural effusion. Moderate cardiomegaly. Post surgical changes involve the chest. IMPRESSION: These findings may indicate mild CHF." Alicia will be admitted to hospitalist service for further evaluation and treatment of systolic/diastolic CHF. Allergies No Known Allergies Allergy (Verified 10/17/23 09:28) Home Medications: Fluoxetine HCl 20 mg PO DAILY 06/11/24 Amiodarone HCl [Cordarone*] 200 mg PO BID #60 tab 06/20/24 Apixaban [Eliquis] 5 mg PO BID #60 tab 06/20/24 Metoprolol Tartrate [Lopressor] 12.5 mg PO BID #30 tab 06/20/24 Furosemide [Lasix*] 40 mg PO BIDL #60 tab 06/21/24 Spironolactone [Aldactone*] 25 mg PO DAILY #30 tab 06/21/24 - Past Medical/Surgical History Diabetic: Yes -: Coronary artery disease -: hypertension -: diabetes -: dyslipidemia -: Coronary artery bypass grafting -: coronary artery stent x5 - Family History Father -: Heart disease, Hypertension Mother -: Heart disease, Stroke - Social History Smoking Status: Never smoker Alcohol use: No CD- Drugs: No Caffeine use: No Review of Systems Other: per HPI Physical Examination - Physical Exam General: Alert, In no apparent distress, Oriented x3 HEENT: Atraumatic, Normocephalic Neck: Supple, 2+ carotid pulse no bruit Respiratory: Normal air movement, Crackles/rales Cardiovascular: Regular rate/rhythm, Normal S1 S2, Edema (BLE) Capillary refill: <2 Seconds Gastrointestinal: Normal bowel sounds, Soft and benign Musculoskeletal: No clubbing Integumentary: No rashes Neurological: Normal speech, Normal tone - Studies Laboratory Data (last 24 hrs) 07/12/24 07/12/24 13:49 13:49 WBC 5.30 Hgb 10.4 L Hct 31.0 L Plt Count 126 L Sodium 136 Potassium 4.0 BUN 16 Creatinine 1.37 H Glucose 154 H Total Bilirubin 1.8 H AST 55 H ALT 21 Alkaline Phosphatase 89 Assessment and Plan - Plan Assessment and Plan Acute hypoxic respiratory distress 2/2 Systolic/diastolic CHF exacerabtion CAD s/p CABG Afib Febrile -strict I and O, daily weights -Lasix 40 mg IV Q8hr -1000 ml fluid restriction -continuous telemetry -COVID/Flu pending -Cardiology consulted, recommendations appreciated -reported fever at home DM- NIDDM -accucheck with SSI HTN/HLD Hypothyroidism -continue home medications as appropriate, titrated PRN DVT ppx SCD Full code LOS 24 hour OBS Discharge Plan: Home Plan to discharge in: 24 Hours - Advance Directives Does patient have a Living Will: No Does patient have a Durable POA for Healthcare: Yes
[2024-07-12] MEDS: INSULIN REGULAR (HUMAN) 100 UNIT/ML SQ SCH (21:00)
[2024-07-12] MEDS ORDERED: FUROSEMIDE 40 MG/4 ML VIAL IV SCH (21:00)
[2024-07-12] MEDS: ATORVASTATIN 40 MG TAB PO SCH (21:50)
[2024-07-12 21:57] VITALS: BMI 29.4
[2024-07-12 22:19] LABS: Influenza A Ag Negative; Influenza B Ag Negative; SARS-CoV-2 Antigen Rapid Res Negative (Negative)
[2024-07-12] MEDS: FUROSEMIDE 40 MG/4 ML VIAL IV SCH (23:45)
[2024-07-13 02:49] LABS: Specific Gravity 1.013 (1.005-1.030); Urine Bilirubin NEGATIVE (Negative); Urine Blood Negative (Negative); Urine Clarity Clear (Clear); Urine Color Yellow (Yellow); Urine Glucose NEGATIVE (Negative); Urine Ketones NEGATIVE (Negative); Urine Microscopic Reflex YN NO UMIC; Urine Nitrite NEGATIVE (Negative); Urine Protein NEGATIVE (Negative); Urine Urobilinogen Normal (Normal); Urine pH 6.5 (5.0-7.0)
[2024-07-13 05:59] LABS: Absolute Basophils 0.1 K/uL (0-0.5); Absolute Eosinophils 0.1 K/uL (0-0.5); Absolute Lymphocytes (CBC) 1.3 K/uL (0.7-4.9); Absolute Monocytes 0.5 K/uL (0.1-1.3); Absolute Neutrophil 2.9 K/uL (1.8-8.0); Basophils % 1.2 % (0-1.3); Eosinophils % 1.4 % (0-4.4); Hematocrit 30.6 % (39.6-49.0); Hemoglobin 10.2 g/dL (13.6-17.9); Lymphocytes % 27.9 % (15.3-44.8); MCH 28.4 pg (27.0-35.0); MCHC 33.3 g/dL (32.0-36.0); MCV 85.5 fL (80-100); Monocytes % 9.8 % (3.3-12.3); Neutrophils % 59.7 % (41.7-73.7); Nucleated Red Blood Cells % 0.1 % (0-0); Platelets 138 thou/uL (152-406); RBC Red Blood Cell Count 3.58 M/uL (4.33-5.43); Red Cell Distribution Width 18.2 % (12.1-15.2)
[2024-07-13 06:38] LABS: Anion Gap 6.3 mEq/L (5.0-15.0); Magnesium 1.9 mg/dL (1.6-2.4); Phosphorus 3.2 mg/dL (2.5-4.9); Potassium 3.3 mEq/L (3.5-5.1)
[2024-07-13 06:39] LABS: Troponin High Sensitivity 100.7 pg/mL (<58.9)
[2024-07-13] MEDS: SPIRONOLACTONE 25 MG TABLET PO SCH (09:00)
[2024-07-13] MEDS: APIXABAN 5 MG TABLET PO SCH (10:01)
[2024-07-13] MEDS: FLUOXETINE 20 MG CAP PO SCH (10:01)
[2024-07-13] MEDS: AMIODARONE HCL 200 MG TAB PO SCH (10:01)
[2024-07-13] MEDS: POTASSIUM CL SA 10 MEQ TAB PO ONE (10:01)
[2024-07-13] MEDS: ASPIRIN EC 81 MG TAB PO SCH (10:01)
[2024-07-13 10:20] VITALS: O2SAT 98
--- NOTE | 2024-07-13 12:35 | P.CNS ---
Date of Consult: 07/13/24 Chief Complaint: CHF exacerbation History of Present Illness: Patient with PMH of CAD s/p CABG with recent angiogram shows significant [place] CAD with only patent MALONE-LAD, not amenable for more interventions, Atrial fibrillation failed multiple DCCV attempts, chronic combined heart failure presented with slow grade fever, cough and worsening SOB, denies any other cardiac symptoms. Allergies No Known Allergies Allergy (Verified 10/17/23 09:28) Home medications list reviewed: Yes Home Medications: Fluoxetine HCl 20 mg PO DAILY 06/11/24 Amiodarone HCl [Cordarone*] 200 mg PO BID #60 tab 06/20/24 Apixaban [Eliquis] 5 mg PO BID #60 tab 06/20/24 Metoprolol Tartrate [Lopressor] 12.5 mg PO BID #30 tab 06/20/24 Furosemide [Lasix*] 40 mg PO BIDL #60 tab 06/21/24 Spironolactone [Aldactone*] 25 mg PO DAILY #30 tab 06/21/24 - Past Medical/Surgical History Diabetic: Yes -: Coronary artery disease -: HTN -: DM -: HLD -: CVA -: NM -: a fib -: dianetic neuropathy -: Coronary artery bypass grafting -: coronary artery stent x5 - Family History Father Medical History: Heart disease, Hypertension Mother Medical History: Heart disease, Stroke - Social History Smoking Status: Unknown if ever smoked Alcohol use: No CD- Drugs: No Caffeine use: Yes Place of Residence: Home Review of Systems 10-point ROS is otherwise unremarkable Physical Examination Temp Pulse Resp BP Pulse Ox 98.1 F 82 16 98/63 98 07/13/24 12:00 07/13/24 12:00 07/13/24 12:00 07/13/24 12:00 07/13/24 12:00 General: Alert, In no apparent distress HEENT: Atraumatic, PERRLA, Mucous membr. moist/pink, EOMI, Sclerae nonicteric Neck: Supple, 2+ carotid pulse no bruit, No LAD, Without JVD or thyroid abnormality Respiratory: Clear to auscultation bilaterally, Normal air movement Cardiovascular: Normal S1 S2, Irregular heart rate/rhythm Gastrointestinal: Normal bowel sounds, No tenderness Musculoskeletal: No tenderness Integumentary: No rashes Neurological: Normal gait, Normal speech, Normal tone, Normal affect Lymphatics: No axilla or inguinal lymphadenopathy Laboratory Data (last 24 hrs) 07/12/24 07/12/24 13:49 13:49 WBC 5.30 Hgb 10.4 L Hct 31.0 L Plt Count 126 L Sodium 136 Potassium 4.0 BUN 16 Creatinine 1.37 H Glucose 154 H Total Bilirubin 1.8 H AST 55 H ALT 21 Alkaline Phosphatase 89 - Problems (1) A-fib Current Visit: No Status: Acute Plan: Patient is currently in AF rate controlled, failed multiple DCCV attempts in the past, he is scheduled for AF ablation this Sunday continue amdioarone 200 mg po BID Continue Eliquis 5 mg po BID (2) Acute on chronic combined systolic (congestive) and diastolic (congestive) heart failure Current Visit: No Status: Acute Plan: patient breathing is better give pm dose of lasix then discharge on his home lasix dose of 40 mg po BID Give Metolazone 2.5 mg po to be used every other day continue aldactone 25 mg daily continue lopressor 12.5 mg po BID (3) CAD (coronary artery disease) of artery bypass graft Current Visit: No Status: Acute Plan: known significant CAD with only patent MALONE-LAD with no options for intervention continue ASA 81 mg daily continue Lipitor 40 mg daily
[2024-07-13] MEDS: METOPROLOL TAR 25 MG TAB PO SCH (13:38)
[2024-07-13 16:04] VITALS: BP 105/68; TEMP 98.2
--- NOTE | 2024-07-13 16:58 | P.DS ---
Admission Date: 07/12/24 Discharge Date: 07/13/24 Disposition: ROUTINE DISCHARGE Discharge Condition: GOOD Reason for Admission: CHF exacerbation Brief History of Present Illness: Diagnosis Acute hypoxic respiratory distress 2/2 Systolic/diastolic CHF exacerabtion CAD s/p CABG with CAD of artery bypass graft Elevated Troponin Afib Febrile DM- NIDDM HTN/HLD Hypothyroidism HPI 07/12/24 Alicia Jalloh is a 68 year old male with pmhx Systolic/diastolic CHF, Atrial fibrillation; Diabetes - NIDDM; High Cholesterol; Hypertension; Hypothyroidism; Myocardial infaction, CAD s/p CABG who presents to the ED with SOB. fever, and edema to bilateral lower extremities. Family at the bedside reports he started a fever last night but broke before the morning, and he has been around a child with RSV. He reports compliance with all medications that were prescribed at discharge May. He also reports having a scheduled ablation for his Afib on Sunday. Family reports he called the cardiology call number and was told to come to the ED. Laboratory evaluation significant for Platelets 126, Troponin 141.5, BNP 6841, T bili 1.8, AST 55. Chest xray reports "Mild bilateral interstitial lung opacities. No significant pleural effusion. Moderate cardiomegaly. Post surgical changes involve the chest. IMPRESSION: These findings may indicate mild CHF." Alicia will be admitted to hospitalist service for further evaluation and treatment of systolic/diastolic CHF. Hospital Course: Alicia presented with worsening SOB, fever, and BLE edema, he was admitted for diuresis and cardiology consult. Troponin elevated but has trended down lower than last admission likely 2/2 CAD of artery bypass graft with no option for intervention per Dr. Calderon. He has tolerated Lasix IV with significant UOP, stable creatinine, and had remained afebrile this admission with negative COVID/FLU tests. Dr. Calderon has evaluated and added metolazone Q48 hr and has cleared him for discharge with a follow up outpatient. He reports having a cardiac ablation scheduled for Sunday (07/15). Physical Exam General: Alert and Oriented x3, NAD HEENT: Atraumatic, Normocephalic Neck: Supple, 2+ carotid pulse no bruit Respiratory: Normal air movement, Clear BBS Cardiovascular: Afib with rate control, Normal S1 S2, Edema (BLE) Capillary refill: <2 Seconds Gastrointestinal: Normal activebowel sounds, Soft on palpation Musculoskeletal: No clubbing Integumentary: No rashes Neurological: Normal speech, Normal tone Vital Signs/Physical Exam: Temp Pulse Resp BP Pulse Ox 98.2 F 79 14 105/68 98 07/13/24 16:00 07/13/24 16:05 07/13/24 16:00 07/13/24 16:05 07/13/24 16:00 Laboratory Data at Discharge: WBC 4.80 thou/uL (4.3-10.9) 07/13/24 05:45 Hgb 10.2 g/dL (13.6-17.9) L 07/13/24 05:45 Hct 30.6 % (39.6-49.0) L 07/13/24 05:45 Plt Count 138 thou/uL (152-406) L 07/13/24 05:45 Sodium 139 mEq/L (136-145) 07/13/24 05:45 Potassium 3.3 mEq/L (3.5-5.1) L D 07/13/24 05:45 BUN 14 mg/dL (7-18) 07/13/24 05:45 Creatinine 1.14 mg/dL (0.70-1.30) 07/13/24 05:45 Glucose 111 mg/dL (74-106) H 07/13/24 05:45 Phosphorus 3.2 mg/dL (2.5-4.9) 07/13/24 05:45 Magnesium 1.9 mg/dL (1.6-2.4) 07/13/24 05:45 Total Bilirubin 1.8 mg/dL (0.2-1.0) H 07/12/24 13:49 AST 55 U/L (15-37) H 07/12/24 13:49 ALT 21 U/L (16-61) 07/12/24 13:49 Alkaline Phosphatase 89 U/L (45-117) 07/12/24 13:49 Home Medications: Fluoxetine HCl 20 mg PO DAILY 06/11/24 Amiodarone HCl [Cordarone*] 200 mg PO BID #60 tab 06/20/24 Apixaban [Eliquis] 5 mg PO BID #60 tab 06/20/24 Metoprolol Tartrate [Lopressor*] 12.5 mg PO BID #30 tab 06/20/24 Furosemide [Lasix*] 40 mg PO BIDL #60 tab 06/21/24 Spironolactone [Aldactone*] 25 mg PO DAILY #30 tab 06/21/24 metOLazone [Zaroxolyn*] 2.5 mg PO Q48H 30 Days #15 tab 07/13/24 New Medications: metOLazone [Zaroxolyn*] 2.5 mg PO Q48H 30 Days #15 tab Physician Discharge Instructions: 1. Please call and schedule a follow-up appointment with your PCP in 3-5 days - Please follow-up with your PCP for medication refills/adjustments 2. Please call and schedule a follow-up appointment with Dr. Calderon in 3-5 days 3. Continue heart healthy diet 4. activity restrictions fall precautions 5. Return to the ED if symptoms worsen New medications Metolazone 2.5 mg everyother day (48 hours) Diet: AHA Activity: Fall precautions Followup: Gavin Calderon MD [ACTIVE - CAN ADMIT] - NONE,NONE [Primary Care Provider] -
--- NOTE | 2024-07-14 10:53 | EKG ---
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
== END 2024-07-13 17:53 | disposition home or self-care (01) ==
LOC: ER 13:03 → ERHOLD 17:00 → 4TH 18:51
PROVIDERS: ADMIT Hospitalist; ATTEND Hospitalist
DX: I50.43 Acute on chronic combined systolic (congestive) and diastolic (congestive) heart failure (principal); R06.03 Acute respiratory distress; R09.02 Hypoxemia; I48.11 Longstanding persistent atrial fibrillation; E11.9 Type 2 diabetes mellitus without complications; R79.89 Other specified abnormal findings of blood chemistry; E78.00 Pure hypercholesterolemia, unspecified; I51.7 Cardiomegaly; I10 Essential (primary) hypertension; E03.9 Hypothyroidism, unspecified; I25.2 Old myocardial infarction; I25.10 Atherosclerotic heart disease of native coronary artery without angina pectoris; R50.9 Fever, unspecified; R60.9 Edema, unspecified; R05.9 Cough, unspecified; Z79.01 Long term (current) use of anticoagulants; Z95.1 Presence of aortocoronary bypass graft; Z11.52 Encounter for screening for COVID-19
CPT/HCPCS: 93005; 85025 ×2; 80048 ×2; 36415 ×2; 83735; 84100; 82947 ×3; 80076; 81003; 84484 ×3; 83880; 71045; 96374; 99285; 87428; J1940 ×4; G0378 ×4; J1938